=== PATIENT | male | born 1950 | race Caucasian/White ===

== ENCOUNTER → 2017-11-18 | Outpatient (CLI) | payer OTHER ==
[2017-11-18 17:09] LABS: BLOOD UREA NITROGEN 38 mg/dl (7-18); CALCIUM 8.6 mg/dl (8.5-10.1); CARBON DIOXIDE 26 mmol/L (21-32); CREATININE 1.88 mg/dl (0.60-1.40); GLUCOSE 121 mg/dl (70-99); POTASSIUM 5.3 mmol/L (3.5-5.1); SODIUM 134 mmol/L (136-145)
== END | disposition home or self-care (01) ==
LOC: C.LABPBG 13:52
PROVIDERS: ATTEND Physician Assistant
DX: Z01.818 Encounter for other preprocedural examination (principal)

== ENCOUNTER 2022-10-06 12:58 | Inpatient (IN) ==
--- NOTE | 2022-10-06 13:03 | Emergency Department Note ---
Impression & Plan Atrial fibrillation, Chronic kidney disease, stage III (moderate), Fall, Cellulitis, Mobitz type 1 second degree AV block ED Provider Note NAME: NITHIN ORTA AGE: 72 SEX: M : 1950 ARRIVES VIA: Ambulance INFORMANT: Patient, ED PROVIDER(S): Jamal Dumont MD Chief Complaint: Fall, leg pain, possible rectal bleeding HPI: Patient presents from home as he was transitioning from his lift chair to wheelchair and had a fall. The patient denies any head strike or LOC. The patient reportedly was recently admitted at [facility] and states that he does not was not feeling well and was having difficulty getting around his home. Patient denies any chest pain shortness of breath or abdominal pain. EMS noted that he might of had some scant rectal bleeding but the patient thought that this may be related to the fall that he sustained. The patient does take Eliquis and aspirin and has known history of A. fib and heart failure. Patient does complain of chronic left hip and knee pain. Patient was noted to have excoriated lower extremities. Patient states that the fall was just from the chair to the floor. Patient states he did not fall backwards. Did review transitional care management the patient is to have in-home care through [facility] community nurses. Patient is supposed to have care from 10-2pm. patient reportedly was not able to verify medication changes when being spoken to. Patient was seen in the outpatient setting by Dr. Cruz and I did review the patient's note from September 27 patient reportedly does have erysipelas of the bilateral lower extremities as well as cellulitis. The patient does have Augmentin therapy. The patient does have acute on chronic CHF this was to be on Lasix. Patient reportedly had presented to the emergency department on September 13 and subsequently on September 15 and was admitted from the through the . Patient did have new onset A. fib and was started on Eliquis at that time. His aspirin was reportedly stopped. Patient reportedly was transitioned from Rocephin to Augmentin at the time of his discharge. Per the note the patient is not to take the antibiotic as directed he has not been taking his daily Lasix. MDM: Patient was seen due to concern for fall and likely inability to care at home. The patient is festive in shelter but after reading the patient's notes he has limited care and may suffer from noncompliance and this may be due to his inability to care for himself. Patient had recently been started on blood thinning medications as well as beta-shi for new onset A. fib. The patient did have blood work completed along with CT of the head given the fall on blood thinner as well as plain films of the chest left hip and knee. Rectal exam was not overtly concerning. The patient does appear to have a small amount of blood with normal colored stool. Patient CT of the head shows remote infarcts which were old. I did speak with Dr. Morelos who stated that they did appear to be old. The patient has a borderline elevation white count of 10.9. He was empirically treated with cefepime given his known history of cellulitis erysipelas and potential noncompliance with at home medications as the patient was opposed to be on at home Augmentin. Patient has mild anemia with a hemoglobin of 11. Platelet count is normal. Kidney function with a creat of 1.2. Glucose of 210. Patient is not DKA. Hypercalcemia noted. Procalcitonin is not elevated. Flu COVID and RSV negative. Lactate is not elevated. Fluids avoided at this time as the patient may be suffering from volume overloaded and per review of the patient's chart the patient has gained 14 kg since he was seen here in April. Patient was ordered Lasix 40. I did speak the on-call hospitalist Dr. Adair. Patient was admitted to the medicine service. Patient's plain films did not show fracture in the lower extremity. The patient's chest x-ray cardiomegaly without pulmonary edema. Trace pleural effusions noted ROS: See HPI for pertinent positives and negatives. A total of 10 systems were reviewed and otherwise negative. Past medical history: See below Surgical history: See below Social history: See below Physical Exam: GENERAL: NAD, wearing a mask, non-toxic. EYE EXAM: Normal conjunctiva. PERRL, no anisocoria and EOM's grossly intact w/o pain. NECK: Supple, no nuchal rigidity, no adenopathy, non-tender. No signs of meningismus. FROM of the neck with good chin to chest and neck extension. No stridor. LUNGS: Clear to auscultation. Normal chest wall mechanics. HEART: NSR, no MRG. ABDOMEN: Abdomen soft, non-tender, normo-active bowel sounds, no masses, no rebound or guarding. BACK: No CVA TTP. SKIN: No rashes and no bruising. UPPER EXTREMITIES: Upper extremities are grossly normal. Rectal: No internal masses, normal appearing stool, scant blood noted LOWER EXTREMITIES: Significant bilateral lower extremity edema with excoriation noted as well as wounds to the inner portion of the bilateral calves, mild surrounding erythema but without calor, no crepitus, neurovascular intact distally. Mild pain to the left hip and left knee without obvious deformity or leg length discrepancy. NEURO EXAM: A&O x3, cranial nerves II-XII grossly intact, normal speech, moves all 4 extremities. Differential diagnoses: Fracture, dislocation, contusion, intra-abdominal, pneumothorax, intrathoracic, intracranial, neurologic, compartment syndrome, rhabdomyolysis, as well as other pathologies. Course: Patient was seen and evaluated the bedside. Full history physical exam was performed. EKG interpreted by Sinus with Mobitz 1 AV conduction, rate of 61, normal axis borderline QRS, no obvious ST elevations. Imaging Studies: See Below Cardiac monitoring: An order was placed for continuous cardiac monitoring. The monitor shows a rate of 67 with regular rhythm. Past Med/Surg History Medical History Arthritis Atrial fibrillation (09/2022) BPH (benign prostatic hyperplasia) Chronic diastolic heart failure Chronic kidney disease, stage III (moderate) Chronic venous stasis dermatitis of both lower extremities Depression Diabetes mellitus type 2 with complications Gout H/O osteomyelitis Hearing deficit History of amputation of toe Onset: 23 December 2017 R great toe, R 2nd toe Hyperlipidemia Hypertension Mobitz type 1 second degree AV block Osteoarthritis Peripheral arterial disease Type 2 diabetes mellitus with diabetic neuropathy Urinary incontinence Venous insufficiency (chronic) (peripheral) Wheelchair bound Surgical History History of cataract surgery Right eye, 2016; L eye 2018 History of foot surgery tumor removal; left S/P arterial stent R leg, December 2017 S/P hip replacement 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) secondary to osteomyelitis Status post amputation of toe of left foot (07/06/21) L 2nd toe Status post amputation of toe of left foot (09/10/21) L 3rd adn 4th toes (d/t osteomyelitis) Status post amputation of toe of right foot R great toe, December 23, 2017 Total knee replacement status Right Family History Brother Cardiac disorder Aunt Colorectal cancer Sister Hypertension Breast cancer Denies family history of Ovarian cancer Prostate cancer Myocardial infarction Social History Smoking Status: Never smoker Second Hand Exposure: Yes; Hx Alcohol Use: No Hx Substance Use: No Preferred Language: German Communication Ability: Effective Visual Impairment: Limited Hearing Ability: Hard of Hearing Grief Counselor Required: No Beliefs That Will Affect Care: None marital status: Current Living Situation: Alone Current Living Situation Comment: 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, starts at 9am current occupational status: retired Other Information That Helps Us Care for You: No Feels Safe at Home: Yes Childhood Exposure to Second-Hand Smoke: Yes caffeine: No during the past year weight has: decreased > 10 lbs Dental Care, Regularly: No Physical Activity Frequency: Does not Exercise Physical Activity Frequency Comment: limited by physical condition Seatbelt Use: always Sunscreen Use: No Assistive Devices: Lift Chair and Wheelchair Allergies Allergies Allergy/AdvReac Type Severity Reaction Status Date / Time lisinopril AdvReac Intermediate Cough Verified 10/06/22 15:38 Home Meds Home Medications Medication Instructions Recorded Confirmed doxepin 75 mg capsule 225 mg PO HS PRN Sleep 10/06/22 10/06/22 dulaglutide 3 mg/0.5 mL 0 mg subcut WK 10/06/22 10/06/22 subcutaneous pen injector ipratropium 20 mcg-albuterol 100 1 puff inhalation TID PRN 10/06/22 10/06/22 mcg/actuation mist for inhalation BREATHING ISSUES (Combivent Respimat) Previous Rx's Medication Instructions Recorded diaper,brief,adult,disposable #120 ea 04/13/19 (Briefs, Adult-Extra Large) pen needle, diabetic 32 gauge x #100 ea 04/25/19 5/32" (1st Tier Unifine Pentips) Diabetic Shoes #1 ea 04/27/21 Extra Heavy Duty Wheelchair #1 ea 06/29/21 lancets 33 gauge (BD Ultra Fine #100 ea 11/10/21 Lancets) finasteride 5 mg tablet 5 mg PO DAILY #90 tabs 02/26/22 pen needle, diabetic 32 gauge x #100 ea 03/04/22" (BD Sofy 2nd Gen Pen Needle) furosemide 20 mg tablet (Lasix) 40 mg PO DAILY #60 tabs 07/01/22 allopurinol 300 mg tablet 300 mg PO DAILY #90 tabs 07/07/22 losartan 100 mg tablet 100 mg PO DAILY #90 tabs 07/07/22 metoprolol succinate 50 mg 50 mg PO DAILY #90 tabs 07/16/22 tablet,extended release 24 hr tamsulosin 0.4 mg capsule 0.4 mg PO DAILY #180 caps 07/16/22 atorvastatin 10 mg tablet 10 mg PO DAILY #90 tabs 08/04/22 insulin glargine U-300 conc 300 25 unit (0.0833 mL) subcut DAILY 08/12/22 unit/mL (1.5 mL) subcutaneous pen #13.5 mL (Toujeo SoloStar U-300 Insulin) Hinged knee brace #1 ea 08/15/22 diaper,brief,adult,disposable #32 ea 08/15/22 motor scooter #1 ea 08/15/22 apixaban 5 mg tablet 5 mg PO BID #60 tabs 09/20/22 aspirin 81 mg tablet,delayed 81 mg PO DAILY #30 tabs 09/20/22 release Diabetic Shoes #1 ea 09/27/22 Results & Data (ED) Vital Signs Vital Signs - 24 hr 10/06/22 13:53 10/06/22 13:59 10/06/22 13:08 Temperature 36.1 C L Temperature Source Temporal Artery Scan Pulse Rate 67 64 Pulse Rate [Apical] 65 Respiratory Rate 20 20 14 Respiratory Effort / Characteristics Non-Labored Spontaneous Non-Labored Respiratory Depth Normal Normal Respiratory Pattern Regular Regular Blood Pressure 159/77 H Blood Pressure [Right Arm] Blood Pressure Mean 104 Blood Pressure Mean [Right Arm] Blood Pressure Position Lying Pulse Oximetry 94 93 94 Oxygen Delivery Method Room Air Room Air Room Air Sepsis Recent Fever Within 48 Hours No Sepsis New/Unexplained Change in Mental Status N/A Sepsis Action Taken by Nursing No Action Required 10/06/22 14:15 10/06/22 14:30 10/06/22 14:45 Temperature Temperature Source Pulse Rate Pulse Rate [Apical] 62 72 65 Respiratory Rate 16 18 20 Respiratory Effort / Characteristics Respiratory Depth Respiratory Pattern Blood Pressure Blood Pressure [Right Arm] 183/78 H 157/100 H 183/89 H Blood Pressure Mean Blood Pressure Mean [Right Arm] 113 119 120 Blood Pressure Position Pulse Oximetry 95 91 92 Oxygen Delivery Method Room Air Room Air Room Air Sepsis Recent Fever Within 48 Hours Sepsis New/Unexplained Change in Mental Status Sepsis Action Taken by Nursing 10/06/22 15:33 Temperature Temperature Source Pulse Rate Pulse Rate [Apical] 74 Respiratory Rate Respiratory Effort / Characteristics Respiratory Depth Respiratory Pattern Blood Pressure Blood Pressure [Right Arm] 172/92 H Blood Pressure Mean Blood Pressure Mean [Right Arm] 118 Blood Pressure Position Pulse Oximetry 94 Oxygen Delivery Method Room Air Sepsis Recent Fever Within 48 Hours Sepsis New/Unexplained Change in Mental Status Sepsis Action Taken by Long Term Medications Current Medication List: was personally reviewed by me Laboratory Data Result diagrams: 10/07/22 06:20 10/07/22 06:20 Lab Results 10/06/22 10/06/22 10/06/22 Range/Units 13:43 13:43 13:43 WBC 10.97 H (4.8-10.8) K/ul RBC 3.95 L (4.63-6.08) M/uL Hgb 11.1 L (14.0-18.0) g/dl Hct 35.6 L (40.1-51.0) % MCV 90.1 (80.0-100.0) fL MCH 28.1 (25.0-34.0) pg MCHC 31.2 L (32.0-36.0) g/dL RDW Std Deviation 50.4 H (36.4-46.3) fL RDW Coeff of Ana María 15.5 H (11.5-14.5) % Plt Count 255 (130-400) K/uL MPV 10.3 (9.4-12.4) fL Immature Gran % (Auto) 0.5 % Neut % (Auto) 77.8 % Lymph % (Auto) 13.1 % Gregg % (Auto) 6.5 % Eos % (Auto) 1.6 % Baso % (Auto) 0.5 % Neut # (Auto) 8.53 H (1.4-6.5) K/uL Lymph # (Auto) 1.44 (1.2-3.4) K/uL Gregg # (Auto) 0.71 (0.24-0.82) K/uL Eos # (Auto) 0.18 (0-0.50) K/uL Baso # (Auto) 0.06 (0-0.2) K/uL Immature Gran # (Auto) 0.05 H (0.00-0.02) K/uL PT (9.0-12.0) Seconds INR (0.9-1.1) APTT (21.0-31.0) Seconds PTT Ratio Sodium 135 L (136-145) mmol/L Potassium 3.9 (3.5-5.1) mmol/L Chloride 102 (98-107) mmol/L Carbon Dioxide 27 (21-32) mmol/L Anion Gap 6 (3-11) BUN 27 H (6-23) mg/dl Creatinine 1.26 (0.6-1.4) mg/dl Est Cr Clr Drug Dosing Not Reportable Est GFR ( Amer) 64.7 ml/min Est GFR (Non-Af Amer) 55.8 ml/min BUN/Creatinine Ratio 21.4 H (10-20) Glucose 210 H (70-99(Fasting)) mg/dl Lactate (0.4-2.0) mmol/L Calcium 7.8 L (8.5-10.1) mg/dl Magnesium 1.7 (1.7-2.4) mg/dl Total Bilirubin 0.5 (0.2-1.0) mg/dl Direct Bilirubin 0.1 (0-0.2) mg/dl AST 14 (13-39) U/L ALT 11 (7-52) U/L Alkaline Phosphatase 162 H (34-104) U/L Troponin I High Sens 26.0 H (0-20) pg/ml Total Protein 6.7 (6.0-8.3) gm/dl Albumin 2.8 L (3.4-5.0) gm/dl Procalcitonin 0.08 (0-0.5) ng/ml SARS-CoV-2 (PCR) (Negative) Influenza Type A (PCR) (Neg) Influenza Type B (PCR) (Neg) RSV (RT-PCR) (Neg) Staphylococcus sp PCR (NotDetected) Bld Cult ID Panel PCR (NotDetected) 10/06/22 10/06/22 10/06/22 Range/Units 13:43 13:43 13:43 WBC (4.8-10.8) K/ul RBC (4.63-6.08) M/uL Hgb (14.0-18.0) g/dl Hct (40.1-51.0) % MCV (80.0-100.0) fL MCH (25.0-34.0) pg MCHC (32.0-36.0) g/dL RDW Std Deviation (36.4-46.3) fL RDW Coeff of Ana María (11.5-14.5) % Plt Count (130-400) K/uL MPV (9.4-12.4) fL Immature Gran % (Auto) % Neut % (Auto) % Lymph % (Auto) % Gregg % (Auto) % Eos % (Auto) % Baso % (Auto) % Neut # (Auto) (1.4-6.5) K/uL Lymph # (Auto) (1.2-3.4) K/uL Gregg # (Auto) (0.24-0.82) K/uL Eos # (Auto) (0-0.50) K/uL Baso # (Auto) (0-0.2) K/uL Immature Gran # (Auto) (0.00-0.02) K/uL PT 11.2 (9.0-12.0) Seconds INR 1.1 (0.9-1.1) APTT 33.2 H (21.0-31.0) Seconds PTT Ratio 1.2 Sodium (136-145) mmol/L Potassium (3.5-5.1) mmol/L Chloride (98-107) mmol/L Carbon Dioxide (21-32) mmol/L Anion Gap (3-11) BUN (6-23) mg/dl Creatinine (0.6-1.4) mg/dl Est Cr Clr Drug Dosing Est GFR ( Amer) ml/min Est GFR (Non-Af Amer) ml/min BUN/Creatinine Ratio (10-20) Glucose (70-99(Fasting)) mg/dl Lactate (0.4-2.0) mmol/L Calcium (8.5-10.1) mg/dl Magnesium (1.7-2.4) mg/dl Total Bilirubin (0.2-1.0) mg/dl Direct Bilirubin (0-0.2) mg/dl AST (13-39) U/L ALT (7-52) U/L Alkaline Phosphatase (34-104) U/L Troponin I High Sens (0-20) pg/ml Total Protein (6.0-8.3) gm/dl Albumin (3.4-5.0) gm/dl Procalcitonin (0-0.5) ng/ml SARS-CoV-2 (PCR) NEGATIVE (Negative) Influenza Type A (PCR) Negative (Neg) Influenza Type B (PCR) Negative (Neg) RSV (RT-PCR) Negative (Neg) Staphylococcus sp PCR DETECTED A (NotDetected) Bld Cult ID Panel PCR See PCR Comment (NotDetected) 10/06/22 Range/Units 13:45 WBC (4.8-10.8) K/ul RBC (4.63-6.08) M/uL Hgb (14.0-18.0) g/dl Hct (40.1-51.0) % MCV (80.0-100.0) fL MCH (25.0-34.0) pg MCHC (32.0-36.0) g/dL RDW Std Deviation (36.4-46.3) fL RDW Coeff of Ana María (11.5-14.5) % Plt Count (130-400) K/uL MPV (9.4-12.4) fL Immature Gran % (Auto) % Neut % (Auto) % Lymph % (Auto) % Gregg % (Auto) % Eos % (Auto) % Baso % (Auto) % Neut # (Auto) (1.4-6.5) K/uL Lymph # (Auto) (1.2-3.4) K/uL Gregg # (Auto) (0.24-0.82) K/uL Eos # (Auto) (0-0.50) K/uL Baso # (Auto) (0-0.2) K/uL Immature Gran # (Auto) (0.00-0.02) K/uL PT (9.0-12.0) Seconds INR (0.9-1.1) APTT (21.0-31.0) Seconds PTT Ratio Sodium (136-145) mmol/L Potassium (3.5-5.1) mmol/L Chloride (98-107) mmol/L Carbon Dioxide (21-32) mmol/L Anion Gap (3-11) BUN (6-23) mg/dl Creatinine (0.6-1.4) mg/dl Est Cr Clr Drug Dosing Est GFR ( Amer) ml/min Est GFR (Non-Af Amer) ml/min BUN/Creatinine Ratio (10-20) Glucose (70-99(Fasting)) mg/dl Lactate 1.2 (0.4-2.0) mmol/L Calcium (8.5-10.1) mg/dl Magnesium (1.7-2.4) mg/dl Total Bilirubin (0.2-1.0) mg/dl Direct Bilirubin (0-0.2) mg/dl AST (13-39) U/L ALT (7-52) U/L Alkaline Phosphatase (34-104) U/L Troponin I High Sens (0-20) pg/ml Total Protein (6.0-8.3) gm/dl Albumin (3.4-5.0) gm/dl Procalcitonin (0-0.5) ng/ml SARS-CoV-2 (PCR) (Negative) Influenza Type A (PCR) (Neg) Influenza Type B (PCR) (Neg) RSV (RT-PCR) (Neg) Staphylococcus sp PCR (NotDetected) Bld Cult ID Panel PCR (NotDetected) Administered Medications Acetaminophen (Acetaminophen 325 Mg Tab) 650 mg PO Q4H PRN PRN Reason: Pain or Fever Stop: 11/05/22 21:49 Last Admin: 10/07/22 11:07 Dose: 650 mg Documented By: MEENA Allopurinol (Allopurinol 300 Mg Tab) 300 mg PO DAILY [facility] Stop: 11/06/22 08:59 Last Admin: 10/07/22 08:05 Dose: 300 mg Documented By: MEENA Apixaban (Apixaban 5 Mg Tablet) 5 mg PO BID [facility] Stop: 11/05/22 21:49 Last Admin: 10/07/22 08:05 Dose: 5 mg Documented By: Admin: 10/06/22 22:22 Dose: 5 mg Documented By: AIDE Aspirin (Aspirin 81 Mg Ectab) 81 mg PO DAILY [facility] Stop: 11/06/22 08:59 Last Admin: 10/07/22 08:04 Dose: 81 mg Documented By: MEENA Atorvastatin Calcium (Atorvastatin 10 Mg Tab) 10 mg PO DAILY [facility] Stop: 11/06/22 08:59 Last Admin: 10/07/22 08:06 Dose: 10 mg Documented By: MEENA Finasteride (Finasteride 5 Mg Tab) 5 mg PO DAILY [facility] Stop: 11/06/22 08:59 Last Admin: 10/07/22 08:05 Dose: 5 mg Documented By: MEENA Furosemide (Furosemide 40 Mg Tab) 40 mg PO DAILY [facility] Stop: 11/06/22 08:59 Last Admin: 10/07/22 08:05 Dose: 40 mg Documented By: MEENA Gabapentin (Gabapentin 300 Mg Cap) 600 mg PO HS [facility] Stop: 11/05/22 22:29 Last Admin: 10/06/22 22:22 Dose: 600 mg Documented By: AIDE Cefepime HCl 2,000 mg/ Syringe 20 mls @ 5 mls/min IV Q8H [facility]; Protocol Stop: 10/14/22 00:00 Last Admin: 10/07/22 08:04 Dose: 5 mls/min Documented By: Admin: 10/07/22 00:28 Dose: 5 mls/min Documented By: LAKEISHA Insulin Aspart (Insulin Aspart Per Unit) 0 units SC ACHS [facility] Stop: 11/05/22 21:49 Last Admin: 10/07/22 10:00 Dose: 3 units Documented By: MEENA Co-signed By: STEPHEN Admin: 10/06/22 22:48 Dose: Not Given Documented By: AIDE Losartan Potassium (Losartan Potassium 50 Mg Tab) 100 mg PO DAILY [facility] Stop: 11/06/22 08:59 Last Admin: 10/07/22 08:05 Dose: 100 mg Documented By: MEENA Tamsulosin HCl (Tamsulosin Hcl 0.4 Mg Cap) 0.4 mg PO DAILY [facility] Stop: 11/06/22 08:59 Last Admin: 10/07/22 08:05 Dose: 0.4 mg Documented By: MEENA Discontinued Medications Cefepime HCl (Cefepime 2,000 Mg/20 Ml Vial) Confirm Administered Dose 2,000 mg .ROUTE .STK-MED ONE Stop: 10/06/22 15:19 Last Admin: 10/06/22 15:21 Dose: Not Given Documented By: AIDE Furosemide (Furosemide 40 Mg/4 Ml Vial) 40 mg IV ONE ONE Stop: 10/06/22 15:35 Last Admin: 10/06/22 16:10 Dose: 40 mg Documented By: AIDE Cefepime HCl (Maxipime) 2,000 mg in 20 mls @ 5 mls/min IV NOW STA; Protocol Stop: 10/06/22 13:11 Last Admin: 10/06/22 15:32 Dose: 5 mls/min Documented By: AIDE Vancomycin HCl 2,750 mg/ (Sodium Chloride) 555 mls @ 180 mls/hr IV ONE ONE Stop: 10/07/22 01:19 Last Infusion: 10/07/22 03:31 Dose: 0 mls/hr Documented By: armored service technician: 10/06/22 22:23 Dose: 180 mls/hr Documented By: AIDE Insulin Glargine (Lantus Per Unit Charge) 20 units SQ ONE ONE Stop: 10/07/22 09:01 Last Admin: 10/07/22 10:06 Dose: 20 units Documented By: MEENA Co-signed By: CAMILO Metoprolol Succinate (Metoprolol Succ 50mg Ext Rel Tab) 50 mg PO DAILY [facility] Stop: 11/06/22 08:59 Last Admin: 10/07/22 08:05 Dose: 50 mg Documented By: MEENA Imaging Data Radiologist's Impression: Chest X-Ray 10/06/22 13:08 XR chest 1V portable HISTORY: 72 years-old Male Sepsis acute sepsis COMPARISON: None TECHNIQUE: AP view of the chest FINDINGS: Cardiac silhouette is enlarged. Suggestion of trace pleural effusions with left basilar densities. No pneumothorax or overt pulmonary edema. Degenerative changes of the shoulders and spine. IMPRESSION: 1. Cardiomegaly without overt pulmonary edema. 2. Trace pleural effusions with left basilar opacities. ACT 112: Negative or not required by law. The above report was generated using voice recognition software. It may contain grammatical, syntax or spelling errors. Electronically signed by: Jose Chavira M.D. 10/06/2022 1:[address] 10/06/22 13:24 CT SCAN OF THE BRAIN WITHOUT IV CONTRAST CLINICAL HISTORY: Fall. COMPARISON STUDY: No priors. TECHNIQUE: Unenhanced axial CT scan of the brain is performed from the vertex to the skull base. A dose lowering technique was utilized adhering to the principles of ALARA. CT DOSE: 2471.82 mGycm FINDINGS: Brain parenchyma: Foci of left occipital and left cerebellar encephalomalacia are consistent with remote insults. A chronic lacunar infarct is seen in the right thalamus. There is age-related involutional change noting moderate subcortical and periventricular microangiopathic disease. There is no hemorrhage, mass effect, or evidence of acute territorial ischemia by CT criteria. Seaman-white matter differentiation is preserved. No extra-axial fluid collection is seen. Ventricles, sulci, cisterns: Prominent secondary to involutional change. Intracranial vasculature: There is atherosclerotic calcification of the cavernous carotid and vertebral artery. Calvarium: The skeletal structures are osteopenic. No depressed calvarial fracture is identified. Sinuses and mastoids: The visualized paranasal sinuses are clear. The mastoid air cells are well pneumatized. Orbits: The bony orbits are grossly intact. There are bilateral ocular lens implants IMPRESSION: Remote infarcts as above with no hemorrhage, mass effect, or evidence of acute territorial ischemia by CT criteria. ACT 112: Negative or not required by law. Electronically signed by: Junior Morelos M.D. 10/06/2022 2:17 PM Hip/Pelvis X-Ray 10/06/22 13:24 SINGLE VIEW PELVIS; 2 VIEWS LEFT HIP CLINICAL HISTORY: Fall. FINDINGS: An AP view of the pelvis with AP and frog-leg views of the left hip are obtained. No prior studies are available for comparison at the time of dictation. The skeletal structures are osteopenic. There is no radiographic evidence of acute fracture involving the hips or bony pelvis. A right hip arthroplasty is in near anatomic alignment. Moderate arthritic change and joint space narrowing is seen in the left hip. Degenerative sclerosis is noted in the sacroiliac joints and pubic symphysis. Lumbosacral spondylosis is partially visualized. Enthesophytes arise from the anterior superior iliac spines. The overlying soft tissues are within normal limits. Advanced atherosclerotic calcification is seen in the femoral arteries. Phleboliths are noted in the pelvis. IMPRESSION: No acute bony abnormality is identified. Electronically signed by: Junior Morelos M.D. 10/06/2022 3:15 PM Knee X-Ray 10/06/22 13:24 XR knee LT 1 or 2V routine HISTORY: 72 years-old Male pain . Acute left knee pain status post fall COMPARISON: None TECHNIQUE: 2 views of the left knee FINDINGS: Arterial and soft tissue calcifications. Trace joint effusion. Moderate medial and lateral with severe patellofemoral compartment osteoarthritis. Circumferential soft tissue prominence. No acute fracture or dislocation. IMPRESSION: Soft tissue prominence without acute fracture or dislocation identified. ACT 112: Negative or not required by law. The above report was generated using voice recognition software. It may contain grammatical, syntax or spelling errors. Electronically signed by: Jose Chavira M.D. 10/06/2022 3:25 PM Discharge Plan Visit Data Chief Complaint: Fall Stated Complaint: FALL, RECTAL BLEED ED Provider: Jamal Dumont Discharge Problem: Atrial fibrillation, Chronic kidney disease, stage III (moderate), Fall, Cellulitis, Mobitz type 1 second degree AV block
[2022-10-06] MEDS ORDERED: CEFEPIME 2,000 MG/20 ML VIAL IV STA (13:08)
--- NOTE | 2022-10-06 13:34 | XRay Report ---
XR chest 1V portable HISTORY: 72 years-old Male Sepsis acute sepsis COMPARISON: None TECHNIQUE: AP view of the chest FINDINGS: Cardiac silhouette is enlarged. Suggestion of trace pleural effusions with left basilar densities. No pneumothorax or overt pulmonary edema. Degenerative changes of the shoulders and spine. IMPRESSION: 1. Cardiomegaly without overt pulmonary edema. 2. Trace pleural effusions with left basilar opacities. ACT 112: Negative or not required by law. The above report was generated using voice recognition software. It may contain grammatical, syntax o r spelling errors. Electronically signed by: Jose Chavira M.D. 10/06/2022 1:32 PM
[2022-10-06 13:59] LABS: Basophils # (auto) 0.06 K/uL (0-0.2); Basophils % (auto) 0.5 %; Eosinophils # (auto) 0.18 K/uL (0-0.50); Eosinophils % (auto) 1.6 %; Hematocrit (blood only) 35.6 % (40.1-51.0); Hemoglobin 11.1 g/dl (14.0-18.0); Immature Granulocytes # (auto) 0.05 K/uL (0.00-0.02); Immature Granulocytes % (auto) 0.5 %; Lymphocytes # (auto) 1.44 K/uL (1.2-3.4); Lymphocytes % (auto) 13.1 %; Mean Corpuscular Hemoglobin 28.1 pg (25.0-34.0); Mean Corpuscular Hgb Conc 31.2 g/dL (32.0-36.0); Mean Corpuscular Volume 90.1 fL (80.0-100.0); Mean Platelet Volume 10.3 fL (9.4-12.4); Monocytes # (auto) 0.71 K/uL (0.24-0.82); Monocytes % (auto) 6.5 %; Neutrophils # (auto) 8.53 K/uL (1.4-6.5); Neutrophils % (auto) 77.8 %; Platelet Count 255 K/uL (130-400); RDW Coefficient of Variation 15.5 % (11.5-14.5); RDW Standard Deviation 50.4 fL (36.4-46.3); Red Blood Count 3.95 M/uL (4.63-6.08); White Blood Count 10.97 K/ul (4.8-10.8)
[2022-10-06 14:10] LABS: INR 1.1 (0.9-1.1); Partial Thromboplastin Ratio 1.2; Partial Thromboplastin Time 33.2 Seconds (21.0-31.0); Prothrombin Time 11.2 Seconds (9.0-12.0)
--- NOTE | 2022-10-06 14:19 | CT Scan Report ---
CT SCAN OF THE BRAIN WITHOUT IV CONTRAST CLINICAL HISTORY: Fall. COMPARISON STUDY: No priors. TECHNIQUE: Unenhanced axial CT scan of the brain is performed from the vertex to the skull base. A do se lowering technique was utilized adhering to the principles of ALARA. CT DOSE: 2471.82 mGycm FINDINGS: Brain parenchyma: Foci of left occipital and left cerebellar encephalomalacia are consistent with rem ote insults. A chronic lacunar infarct is seen in the right thalamus. There is age-related involution al change noting moderate subcortical and periventricular microangiopathic disease. There is no hemor rhage, mass effect, or evidence of acute territorial ischemia by CT criteria. Seaman-white matter diffe rentiation is preserved. No extra-axial fluid collection is seen. Ventricles, sulci, cisterns: Prominent secondary to involutional change. Intracranial vasculature: There is atherosclerotic calcification of the cavernous carotid and vertebr al artery. Calvarium: The skeletal structures are osteopenic. No depressed calvarial fracture is identified. Sinuses and mastoids: The visualized paranasal sinuses are clear. The mastoid air cells are well pneu matized. Orbits: The bony orbits are grossly intact. There are bilateral ocular lens implants IMPRESSION: Remote infarcts as above with no hemorrhage, mass effect, or evidence of acute territoria l ischemia by CT criteria. ACT 112: Negative or not required by law. Electronically signed by: Junior Morelos M.D. 10/06/2022 2:17 PM
[2022-10-06 14:37] LABS: Alanine Aminotransferase 11 U/L (7-52); Albumin Level 2.8 gm/dl (3.4-5.0); Alkaline Phosphatase 162 U/L (34-104); Anion Gap 6 (3-11); Aspartate Aminotransferase 14 U/L (13-39); BUN Creatinine Ratio 21.4 (10-20); Bilirubin Direct 0.1 mg/dl (0-0.2); Bilirubin,Total 0.5 mg/dl (0.2-1.0); Blood Urea Nitrogen 27 mg/dl (6-23); Calcium 7.8 mg/dl (8.5-10.1); Carbon Dioxide 27 mmol/L (21-32); Chloride 102 mmol/L (98-107); Est GFR (African American) 64.7 ml/min; Est GFR (Non-African American) 55.8 ml/min; Glucose 210 mg/dl (70-99(Fasting)); Magnesium 1.7 mg/dl (1.7-2.4); Potassium 3.9 mmol/L (3.5-5.1); Sodium 135 mmol/L (136-145); Total Protein 6.7 gm/dl (6.0-8.3)
[2022-10-06 14:50] LABS: Influenza A virus by PCR Negative (Neg); Influenza B virus by PCR Negative (Neg); RSV by PCR Negative (Neg); SARS CoV2 RNA(COVID-19) Ceph NEGATIVE (Negative)
--- NOTE | 2022-10-06 15:17 | XRay Report ---
SINGLE VIEW PELVIS; 2 VIEWS LEFT HIP CLINICAL HISTORY: Fall. FINDINGS: An AP view of the pelvis with AP and frog-leg views of the left hip are obtained. No prior studies are available for comparison at the time of dictation. The skeletal structures are osteopenic . There is no radiographic evidence of acute fracture involving the hips or bony pelvis. A right hip arthroplasty is in near anatomic alignment. Moderate arthritic change and joint space narrowing is se en in the left hip. Degenerative sclerosis is noted in the sacroiliac joints and pubic symphysis. Lum bosacral spondylosis is partially visualized. Enthesophytes arise from the anterior superior iliac sp kecia. The overlying soft tissues are within normal limits. Advanced atherosclerotic calcification is seen in the femoral arteries. Phleboliths are noted in the pelvis. IMPRESSION: No acute bony abnormality is identified. Electronically signed by: Junior Morelos M.D. 10/06/2022 3:15 PM
[2022-10-06] MEDS ORDERED: CEFEPIME 2,000 MG/20 ML VIAL ONE (15:18)
--- NOTE | 2022-10-06 15:27 | XRay Report ---
XR knee LT 1 or 2V routine HISTORY: 72 years-old Male pain . Acute left knee pain status post fall COMPARISON: None TECHNIQUE: 2 views of the left knee FINDINGS: Arterial and soft tissue calcifications. Trace joint effusion. Moderate medial and lateral with sever e patellofemoral compartment osteoarthritis. Circumferential soft tissue prominence. No acute fractur e or dislocation. IMPRESSION: Soft tissue prominence without acute fracture or dislocation identified. ACT 112: Negative or not required by law. The above report was generated using voice recognition software. It may contain grammatical, syntax o r spelling errors. Electronically signed by: Jose Chavira M.D. 10/06/2022 3:25 PM
[2022-10-06] MEDS ORDERED: FUROSEMIDE 40 MG/4 ML VIAL IV ONE (15:34)
--- NOTE | 2022-10-06 15:36 | History & Physical Report ---
Date of Service October 06, 2022 Assessment & Plan (1) Fall: Plan: Patient presents with a fall at home which could be multifactorial. Patient feels this was a ground-level fall and a misstep getting out of his lift chair patient has conduction system abnormality seen on EKG. Recently began medications for A. fib. Concurrently being treated for lower extremity cellulitis with oral antibiotics after discharge from [facility] on 09/17/22. His legs are in very poor condition he obviously is having challenges caring for them at home. It is difficult to tell what is acute and what is chronic with regard to chronic venous stasis changes. Etiologies could be from his arrhythmia could be from encephalopathy weekly metabolic from his cellulitis present on admission Patient also has mild elevation of his troponin which could be attributed to his renal disease however this could be part of the complex we will trend this (2) Cellulitis: Plan: Patient has significant lower extremity skin changes of various age previous history of amputations from osteomyelitis associated diabetic leg infections and ulcerations. Patient will be on cefepime and vancomycin at this time but with a wound care consultation no specific ulcer looks close enough to a bony structure for osteomyelitis with exception of left foot plantar aspect on the lateral edge this could be near the fifth metatarsal head and will have a MRI of his foot to determine if there is any osteomyelitis as it would changes care in the future Blood cultures are obtained but no one wound is specifically infected or khoi ining enough to target, if surgical debridement is required is Eliquis will need to be held (3) Atrial fibrillation: Plan: Patient with a history of atrial fibrillation now appears to have AV disassociation. Blood pressure and heart rate have been stable. We will continue metoprolol and apixaban for now garnering cardiology consult for his abnormal cardiac rhythm (4) Chronic diastolic heart failure: Plan: He does not appear to be in acute exacerbation of his diastolic heart failure. Continuing beta-shi therapy and Lasix 40 mg a day Patient remains on aspirin and atorvastatin for secondary cardiovascular risk reduction (5) Diabetes mellitus type 2 with complications: Plan: Patient typically on dulaglutide, glargine 25 units a day losartan for renal protective effects and gabapentin for peripheral neuropathy (6) Chronic kidney disease, stage III (moderate): Plan: Chronic kidney disease stage III secondary to diabetic nephropathy is stable on losartan (7) Obesity: Plan: Patient is morbidly obese with a BMI of 44 this likely impacts his car diovascular status Plan Patient remains on allopurinol for history of gout Patient remains on tamsulosin and Proscar for BPH DVT prevention is for apixaban History of Present Illness Primary Care Provider: Barbara Cruz, DO 72 m with morbid obesity will fall at home and has Complete heart block with AV disassociation on ECG, Pt had traumatic injury ruled out by Ct imaging. Pt has history of afib and is on ch Eliquis typically sees Dr Schmitt in [facility]. Recently treated with Augmentin after discharge 09/[address] [facility] with lower extremity edema, that stay was dx'd with afib this pt has risk factors for heart disease with diabetes, obesity, and record of conducting system disease in his record as Mobitz 1 Patient has fairly significant lower extremity ulcerations which are in various stages of healing at this repair by the patient's body habitus he likely cannot care for his lower extremities by himself at home and he does not have any local caregivers. His legs are worse on the left than the right with chronic venous stasis changes he states that he has had previous vascular interventions but cannot recall exactly where or what he has diabetic neuropathy and cannot feel his feet Allergies Allergy/AdvReac Type Severity Reaction Status Date / Time lisinopril AdvReac Intermediate Cough Verified 10/06/22 15:38 Home Medications Medication Instructions Recorded Confirmed Type diaper,brief,adult,disposable #120 ea 04/13/19 09/27/22 Rx (Briefs, Adult-Extra Large) pen needle, diabetic 32 gauge x #100 ea 04/25/19 09/27/22 Rx 5/32" (1st Tier Unifine Pentips) Diabetic Shoes #1 ea 04/27/21 09/27/22 Rx Extra Heavy Duty Wheelchair #1 ea 06/29/21 09/27/22 Rx lancets 33 gauge (BD Ultra Fine #100 ea 11/10/21 09/27/22 Rx Lancets) finasteride 5 mg tablet 5 mg PO DAILY #90 tabs 02/26/22 10/06/22 Rx pen needle, diabetic 32 gauge x #100 ea 03/04/22 09/27/22 Rx 5/32" (BD Sofy 2nd Gen Pen Needle) furosemide 20 mg tablet (Lasix) 40 mg PO DAILY #60 tabs 07/01/22 10/06/22 Rx allopurinol 300 mg tablet 300 mg PO DAILY #90 tabs 07/07/22 10/06/22 Rx losartan 100 mg tablet 100 mg PO DAILY #90 tabs 07/07/22 10/06/22 Rx metoprolol succinate 50 mg 50 mg PO DAILY #90 tabs 07/16/22 10/06/22 Rx tablet,extended release 24 hr tamsulosin 0.4 mg capsule 0.4 mg PO DAILY #180 caps 07/16/22 10/06/22 Rx atorvastatin 10 mg tablet 10 mg PO DAILY #90 tabs 08/04/22 10/06/22 Rx insulin glargine U-300 conc 300 25 unit (0.0833 mL) subcut DAILY 08/12/22 10/06/22 Rx unit/mL (1.5 mL) subcutaneous pen #13.5 mL (Toujeo SoloStar U-300 Insulin) Hinged knee brace #1 ea 08/15/22 09/27/22 Rx diaper,brief,adult,disposable #32 ea 08/15/22 09/27/22 Rx motor scooter #1 ea 08/15/22 09/27/22 Rx apixaban 5 mg tablet 5 mg PO BID #60 tabs 09/20/22 10/06/22 Rx aspirin 81 mg tablet,delayed 81 mg PO DAILY #30 tabs 09/20/22 10/06/22 Rx release Diabetic Shoes #1 ea 09/27/22 09/27/22 Rx doxepin 75 mg capsule 225 mg PO HS PRN Sleep 10/06/22 10/06/22 History dulaglutide 3 mg/0.5 mL 0 mg subcut WK 10/06/22 10/06/22 History subcutaneous pen injector ipratropium 20 mcg-albuterol 100 1 puff inhalation TID PRN 10/06/22 10/06/22 History mcg/actuation mist for inhalation BREATHING ISSUES (Combivent Respimat) Past Med/Surg History Medical History Arthritis Atrial fibrillation (09/2022) BPH (benign prostatic hyperplasia) Chronic diastolic heart failure Chronic kidney disease, stage III (moderate) Chronic venous stasis dermatitis of both lower extremities Depression Diabetes mellitus type 2 with complications Gout H/O osteomyelitis Hearing deficit History of amputation of toe Onset: 23 December 2017 R great toe, R 2nd toe Hyperlipidemia Hypertension Mobitz type 1 second degree AV block Osteoarthritis Peripheral arterial disease Type 2 diabetes mellitus with diabetic neuropathy Urinary incontinence Venous insufficiency (chronic) (peripheral) Wheelchair bound Surgical History History of cataract surgery Right eye, 2017; L eye 2019 History of foot surgery tumor removal; left S/P arterial stent R leg, December 2017 S/P hip replacement 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) secondary to osteomyelitis Status post amputation of toe of left foot (07/06/21) L 2nd toe Status post amputation of toe of left foot (09/10/21) L 3rd adn 4th toes (d/t osteomyelitis) Status post amputation of toe of right foot R great toe, December 23, 2017 Total knee replacement status Right Family History Brother Cardiac disorder Aunt Colorectal cancer Sister Hypertension Breast cancer Denies family history of Ovarian cancer Prostate cancer Myocardial infarction Social History Smoking Status: Never smoker Second Hand Exposure: Yes; Hx Alcohol Use: No Hx Substance Use: No Preferred Language: Filipino Communication Ability: Effective Visual Impairment: Limited Hearing Ability: Hard of Hearing Beliefs That Will Affect Care: None marital status: Current Living Situation: Alone Current Living Situation Comment: 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, starts at 9am current occupational status: retired Feels Safe at Home: Yes Childhood Exposure to Second-Hand Smoke: Yes caffeine: No during the past year weight has: decreased > 10 lbs Dental Care, Regularly: No Physical Activity Frequency: Does not Exercise Physical Activity Frequency Comment: limited by physical condition Seatbelt Use: always Sunscreen Use: No Assistive Devices: Denture - Upper, Denture - Lower, Glasses, Special Shoe and Wheelchair Review of Systems Review of Systems: Moderate distress and fatigue patient is extremely hard of hearing no headache, no visual changes no speech or swallowing issues no chest pain, pressure or palpitations Patient has shortness of breath and dyspnea on exertion no abdominal pain, nausea or vomiting, diarrhea or constipation no dysuria, hematuria or frequency no focal joint pain chronic lower extremity swelling discoloration and wounds of his lower legs no back pain, CVA tenderness or radicular pain Erythema stasis changes and open areas of both lower legs left transmetatarsal amputation right amputation of the first 3 toes Overall weak the patient feels he just fell from his chair diabetic neuropathy is present no complaints of anxiety or depression.. Physical Exam Physical Exam: The patient appeared obese and chronically ill Vital signs as documented. Head exam is normocephalic atraumatic Neck is without JVD, thyromegaly, or carotid bruits. Lungs are diminished at the bases with poor excursion Cardiac exam, Rhythm is regular.. No murmurs, rubs or gallops. Abdominal exam reveals normal bowel sounds, soft non tender, no masses there is no intertrigo below his pannus Extremities are bilateral edema redness open areas previous amputation left transmit right first 3 digits Capillary refill is brisk but pulses are unable to be palpated Neurologic exam is alert and oriented, very hard of hearing is oriented x3 diabetic neuropathy is present Skin is with acute and chronic changes to his lower extremities Psychologically is without concerns for anxiety or depression.. Results & Data Results & Data ([facility]) Vital Signs (Past 12 Hours) Vital Signs Temp Pulse Pulse Resp BP BP Pulse Ox 10/06/22 14:45 65 20 183/89 H 92 10/06/22 14:30 72 18 157/100 H 91 10/06/22 14:15 62 16 183/78 H 95 10/06/22 13:08 97.0 F L 64 14 159/77 H 94 10/06/22 13:59 65 20 93 10/06/22 13:53 67 20 94 O2 Del Method 10/06/22 14:45 Room Air 10/06/22 14:30 Room Air 10/06/22 14:15 Room Air 10/06/22 13:08 Room Air 10/06/22 13:59 Room Air 10/06/22 13:53 Room Air Diagnostic Findings Chest X-Ray 10/06/22 13:08 XR chest 1V portable HISTORY: 72 years-old Male Sepsis acute sepsis COMPARISON: None TECHNIQUE: AP view of the chest FINDINGS: Cardiac silhouette is enlarged. Suggestion of trace pleural effusions with left basilar densities. No pneumothorax or overt pulmonary edema. Degenerative changes of the shoulders and spine. IMPRESSION: 1. Cardiomegaly without overt pulmonary edema. 2. Trace pleural effusions with left basilar opacities. ACT 112: Negative or not required by law. The above report was generated using voice recognition software. It may contain grammatical, syntax or spelling errors. Electronically signed by: Jose Chavira M.D. 10/06/2022 1:[address] 10/06/22 13:24 CT SCAN OF THE BRAIN WITHOUT IV CONTRAST CLINICAL HISTORY: Fall. COMPARISON STUDY: No priors. TECHNIQUE: Unenhanced axial CT scan of the brain is performed from the vertex to the skull base. A dose lowering technique was utilized adhering to the principles of ALARA. CT DOSE: 2471.82 mGycm FINDINGS: Brain parenchyma: Foci of left occipital and left cerebellar encephalomalacia are consistent with remote insults. A chronic lacunar infarct is seen in the right thalamus. There is age-related involutional change noting moderate s ubcortical and periventricular microangiopathic disease. There is no hemorrhage, mass effect, or evidence of acute territorial ischemia by CT criteria. Seaman- white matter differentiation is preserved. No extra-axial fluid collection is seen. Ventricles, sulci, cisterns: Prominent secondary to involutional change. Intracranial vasculature: There is atherosclerotic calcification of the cavernous carotid and vertebral artery. Calvarium: The skeletal structures are osteopenic. No depressed calvarial fracture is identified. Sinuses and mastoids: The visualized paranasal sinuses are clear. The mastoid air cells are well pneumatized. Orbits: The bony orbits are grossly intact. There are bilateral ocular lens implants IMPRESSION: Remote infarcts as above with no hemorrhage, mass effect, or evidence of acute territorial ischemia by CT criteria. ACT 112: Negative or not required by law. Electronically signed by: Junior Morelos M.D. 10/06/2022 2:17 PM Hip/Pelvis X-Ray 10/06/22 13:24 SINGLE VIEW PELVIS; 2 VIEWS LEFT HIP CLINICAL HISTORY: Fall. FINDINGS: An AP view of the pelvis with AP and frog-leg views of the left hip are obtained. No prior studies are available for comparison at the time of dictation. The skeletal structures are osteopenic. There is no radiographic evidence of acute fracture involving the hips or bony pelvis. A right hip arthroplasty is in near anatomic alignment. Moderate arthritic change and joint space narrowing is seen in the left hip. Degenerative sclerosis is noted in the sacroiliac joints and pubic symphysis. Lumbosacral spondylosis is partially visualized. Enthesophytes arise from the anterior superior iliac spines. The overlying soft tissues are within normal limits. Advanced atherosclerotic varghese cification is seen in the femoral arteries. Phleboliths are noted in the pelvis. IMPRESSION: No acute bony abnormality is identified. Electronically signed by: Junior Morelos M.D. 10/06/2022 3:15 PM Knee X-Ray 10/06/22 13:24 XR knee LT 1 or 2V routine HISTORY: 72 years-old Male pain . Acute left knee pain status post fall COMPARISON: None TECHNIQUE: 2 views of the left knee FINDINGS: Arterial and soft tissue calcifications. Trace joint effusion. Moderate medial and lateral with severe patellofemoral compartment osteoarthritis. Circumferential soft tissue prominence. No acute fracture or dislocation. IMPRESSION: Soft tissue prominence without acute fracture or dislocation identified. ACT 112: Negative or not required by law. The above report was generated using voice recognition software. It may contain grammatical, syntax or spelling errors. Electronically signed by: Jose Chavira M.D. 10/06/2022 3:25 PM ECG Additional Comments: AV disassociation with consistent PCP intervals. History of Mobitz heart block but does not appear to be classic Mobitz 1 or 2 PG Care Time/CCT Total # of Minutes Spent Total Time Spent with Patient: Total time spent is greater than 50% in coordination of care (as documented) at patient's floor/unit and/or counseling patient: Coding Level of Care Code 47134 Initial Inpt Care Lvl 3 Diagnoses Fall W19.XXXA Cellulitis L03.90 Atrial fibrillation I48.91 Chronic diastolic heart failure I50.32 Diabetes mellitus type 2 with complications E11.8 Chronic kidney disease, stage III (moderate) N18.3 Obesity E66.9
[2022-10-06 16:31] LABS: Appearance Urine Clear (Clear); Bacteria Urine Automated Negative (Negative); Bilirubin Urine Negative (Negative); Blood Urine Negative (Negative); Color Urine Yellow; Glucose Urine UA Trace (Negative); Ketones Urine Negative (Negative); Leukocyte Esterase Urine Negative (Negative); Nitrite Urine Negative (Negative); Protein Urine 2+ (Negative); RBC Urine Automated 0-4 /hpf (0-4); Specific Gravity Urine 1.019 (1.000-1.030); Urobilinogen Urine Negative (Negative)
--- NOTE | 2022-10-06 18:01 | Cardiology Consultation ---
Date of Consultation October 06, 2022 Assessment & Plan (1) Atrial fibrillation: (2) Chronic diastolic heart failure: (3) Coronary artery disease: (4) History of CVA (cerebrovascular accident): (5) Mobitz type 1 second degree AV block: Plan 1. Atrial fibrillation: This is by report. We do have some EKGs from [facility]. It is difficult to interpret the copies of the EKGs. Possibly atrial fibrillation with controlled ventricular rate. He was started on apixaban. Aspirin was continued presumably for his history of cerebrovascular disease. Unclear if he requires aspirin in addition to apixaban. Reportedly he had elevated cardiac biomarkers at the time his most recent evaluation. In setting of an NSTEMI aspirin could be beneficial. No symptoms. 2. Coronary disease: Presumed. By report he had a abnormal perfusion study performed 2012 suggestive of an anteroapical infarct. He also had a regional wall motion abnormality on his most recent echocardiogram. Multiple risk factors for coronary disease. He can be continued on his anticoagulation. Higher doses of atorvastatin would likely be beneficial. 3. Heart failure with preserved ejection fraction: He underwent a diuresis at [facility]. Lung examination is benign here today. Chest x-ray did not demonstrate pulmonary edema. He was discharged on a daily dose of Lasix which may have helped. He follows a high sodium diet with prepared meals and fast food. Given his history of lower extremity amputations he may be a poor candidate for more aggressive therapy with an SGLT 2 inhibitor 4. Mobitz 1 av block: He has a history of Mobitz 1 av block. It is very difficult to interpret his current EKG due to the poor quality of the tracings and his body habitus. He may have high-degree AV block. Think we can easily discontinue his metoprolol succinate. Perhaps we can get a better understanding of this conduction on telemetry and with another EKG in the morning. No symptoms associated with bradycardia. Today's fall did not appear to involve dizziness, lightheadedness or syncope. Heart rates have been normal here in the hospital. Overall a poor candidate for pacemaker given his chronic lower extremity infections. History of Present Illness Reason for Consultation: Conduction disease Requesting Physician: Mana Attending Physician: Sg Adair MD History of Present Illness The patient is a 72-year-old gentleman with a history of a cerebrovascular accident, hypertension, heart failure with preserved ejection fraction, morbid obesity, diabetes mellitus with associated complications and peripheral vascular disease status post multiple toe amputations. He also suffers from chronic venous stasis ulcers and lower extremity edema. The patient was evaluated at [facility] on 09/13/2022 for symptoms of weakness. He was advised to be admitted to the hospital but decided to go home instead. EKG obtained at that evaluation suggested atrial fibrillation. Patient returned to the same facility 2 days later with persistent symptoms and was admitted to the hospital. He was diagnosed with congestive heart failure, lower extremity infection, atrial fibrillation and non ST-elevation myocardial infarction. He appears to have undergone a diuresis and antibiotic administration. He was advised to go to a facility for rehabilitation given mobility issues and concerns over falls but he elected to go home. The patient presented to our facility today after suffering a fall at home. The patient has not been ambulatory for several years. He generally is mobile in a wheelchair. He is able to transfer from his lift chair to a a wheelchair most days. However, today he apparently misjudged distance, became unstable and fell. He contacted EMS for assistance and was brought to the hospital for evaluation. He denies any associated dizziness or lightheadedness. He cannot recall any syncopal episodes. He has been aware of palpitations. He denies any symptoms of chest pain or breathing difficulty. He sleeps upright in a lift chair. He states he does not sleep in a reclined position due to back pain. He has persistent lower extremity edema but has difficulty feeling his legs. He denied pain in his lower extremities. Allergies Allergy/AdvReac Type Severity Reaction Status Date / Time lisinopril AdvReac Intermediate Cough Verified 10/06/22 15:38 Home Medications Medication Instructions Recorded Confirmed Type diaper,brief,adult,disposable #120 ea 04/13/19 09/27/22 Rx (Briefs, Adult-Extra Large) pen needle, diabetic 32 gauge x #100 ea 04/25/19 09/27/22 Rx 5/32" (1st Tier Unifine Pentips) Diabetic Shoes #1 ea 04/27/21 09/27/22 Rx Extra Heavy Duty Wheelchair #1 ea 06/29/21 09/27/22 Rx lancets 33 gauge (BD Ultra Fine #100 ea 11/10/21 09/27/22 Rx Lancets) finasteride 5 mg tablet 5 mg PO DAILY #90 tabs 02/26/22 10/06/22 Rx pen needle, diabetic 32 gauge x #100 ea 03/04/22 09/27/22 Rx 5/32" (BD Sofy 2nd Gen Pen Needle) furosemide 20 mg tablet (Lasix) 40 mg PO DAILY #60 tabs 07/01/22 10/06/22 Rx allopurinol 300 mg tablet 300 mg PO DAILY #90 tabs 07/07/22 10/06/22 Rx losartan 100 mg tablet 100 mg PO DAILY #90 tabs 07/07/22 10/06/22 Rx metoprolol succinate 50 mg 50 mg PO DAILY #90 tabs 07/16/22 10/06/22 Rx tablet,extended release 24 hr tamsulosin 0.4 mg capsule 0.4 mg PO DAILY #180 caps 07/16/22 10/06/22 Rx atorvastatin 10 mg tablet 10 mg PO DAILY #90 tabs 08/04/22 10/06/22 Rx insulin glargine U-300 conc 300 25 unit (0.0833 mL) subcut DAILY 08/12/22 10/06/22 Rx unit/mL (1.5 mL) subcutaneous pen #13.5 mL (Toujeo SoloStar U-300 Insulin) Hinged knee brace #1 ea 08/15/22 09/27/22 Rx diaper,brief,adult,disposable #32 ea 08/15/22 09/27/22 Rx motor scooter #1 ea 08/15/22 09/27/22 Rx apixaban 5 mg tablet 5 mg PO BID #60 tabs 09/20/22 10/06/22 Rx aspirin 81 mg tablet,delayed 81 mg PO DAILY #30 tabs 09/20/22 10/06/22 Rx release Diabetic Shoes #1 ea 09/27/22 09/27/22 Rx doxepin 75 mg capsule 225 mg PO HS PRN Sleep 10/06/22 10/06/22 History dulaglutide 3 mg/0.5 mL 0 mg subcut WK 10/06/22 10/06/22 History subcutaneous pen injector ipratropium 20 mcg-albuterol 100 1 puff inhalation TID PRN 10/06/22 10/06/22 History mcg/actuation mist for inhalation BREATHING ISSUES (Combivent Respimat) Patient History Medical History Arthritis Atrial fibrillation (09/2022) BPH (benign prostatic hyperplasia) Chronic diastolic heart failure Chronic kidney disease, stage III (moderate) Chronic venous stasis dermatitis of both lower extremities Depression Diabetes mellitus type 2 with complications Gout H/O osteomyelitis Hearing deficit History of amputation of toe Onset: 23 December 2017 R great toe, R 2nd toe Hyperlipidemia Hypertension Mobitz type 1 second degree AV block Osteoarthritis Peripheral arterial disease Type 2 diabetes mellitus with diabetic neuropathy Urinary incontinence Venous insufficiency (chronic) (peripheral) Wheelchair bound Surgical History History of cataract surgery Right eye, 2016; L eye 2018 History of foot surgery tumor removal; left S/P arterial stent R leg, December 2017 S/P hip replacement 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) secondary to osteomyelitis Status post amputation of toe of left foot (07/06/21) L 2nd toe Status post amputation of toe of left foot (09/10/21) L 3rd adn 4th toes (d/t osteomyelitis) Status post amputation of toe of right foot R great toe, December 23, 2017 Total knee replacement status Right Family History Brother Cardiac disorder Aunt Colorectal cancer Sister Hypertension Breast cancer Denies family history of Ovarian cancer Prostate cancer Myocardial infarction Social History Smoking Status: Never smoker Second Hand Exposure: Yes; Hx Alcohol Use: No Hx Substance Use: No Preferred Language: Turkmen Communication Ability: Effective Visual Impairment: Limited Hearing Ability: Hard of Hearing Beliefs That Will Affect Care: None marital status: Current Living Situation: Alone Current Living Situation Comment: 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 No recent fevers. He feels cold all the time. Physical Exam Physical Exam: The patient is alert and oriented. Mood and affect appeared normal. He answered all questions appropriately. Hard of hearing. Morbidly obese. HEENT: Pupils are equal and reactive to light and accommodation. Extraocular movements are intact. The sclerae are anicteric. Neuro: Cranial nerves intact (wearing mask) Lungs: Clear to auscultation bilaterally. He has good air movement without use of accessory muscles. No rales wheezes or rhonchi. Cardiac: Heart demonstrates an irregular rhythm. Normal S1 and S2. No murmurs on examination. Pulses: The patient has palpable radial pulses bilaterally that are equal in intensity Extremities: No toes on the left foot. Several toe amputations on the right foot. Significant edema and lymphedema on both lower extremities with erythema, venous stasis and diabetic foot ulcers. Skin: I did not appreciate any rashes on examination today. Results & Data ([facility]) Vital Signs (Past 12 Hours) Vital Signs Temp Pulse Pulse Resp BP BP Pulse Ox 10/06/22 16:16 68 92 10/06/22 15:33 74 172/92 H 94 10/06/22 14:45 65 20 183/89 H 92 10/06/22 14:30 72 18 157/100 H 91 10/06/22 14:15 62 16 183/78 H 95 10/06/22 13:08 36.1 C L 64 14 159/77 H 94 10/06/22 13:59 65 20 93 10/06/22 13:53 67 20 94 O2 Del Method 10/06/22 16:16 Room Air 10/06/22 15:33 Room Air 10/06/22 14:45 Room Air 10/06/22 14:30 Room Air 10/06/22 14:15 Room Air 10/06/22 13:08 Room Air 10/06/22 13:59 Room Air 10/06/22 13:53 Room Air Laboratory Results Abnormal Lab Results 10/06/22 10/06/22 10/06/22 13:43 13:43 13:43 WBC 10.97 H RBC 3.95 L Hgb 11.1 L Hct 35.6 L MCV 90.1 MCH 28.1 MCHC 31.2 L RDW Std Deviation 50.4 H RDW Coeff of Ana María 15.5 H Plt Count 255 MPV 10.3 Immature Gran % (Auto) 0.5 Neut % (Auto) 77.8 Lymph % (Auto) 13.1 O'Brien % (Auto) 6.5 Eos % (Auto) 1.6 Baso % (Auto) 0.5 Neut # (Auto) 8.53 H Lymph # (Auto) 1.44 O'Brien # (Auto) 0.71 Eos # (Auto) 0.18 Baso # (Auto) 0.06 Immature Gran # (Auto) 0.05 H PT INR APTT PTT Ratio Sodium 135 L Potassium 3.9 Chloride 102 Carbon Dioxide 27 Anion Gap 6 BUN 27 H Creatinine 1.26 Est Cr Clr Drug Dosing Not Reportable Est GFR ( Amer) 64.7 Est GFR (Non-Af Amer) 55.8 BUN/Creatinine Ratio 21.4 H Glucose 210 H Lactate Calcium 7.8 L Magnesium 1.7 Total Bilirubin 0.5 Direct Bilirubin 0.1 AST 14 ALT 11 Alkaline Phosphatase 162 H Troponin I High Sens 26.0 H Total Protein 6.7 Albumin 2.8 L Procalcitonin 0.08 Urine Color Urine Appearance Urine pH Ur Specific Elberta Urine Protein Urine Glucose (UA) Urine Ketones Urine Blood Urine Nitrite Urine Bilirubin Urine Urobilinogen Ur Leukocyte Esterase Urine WBC (Auto) Urine RBC (Auto) U Hyaline Cast (Auto) U Epithel Cells (Auto) Urine Bacteria (Auto) SARS-CoV-2 (PCR) Influenza Type A (PCR) Influenza Type B (PCR) RSV (RT-PCR) 10/06/22 10/06/22 10/06/22 13:43 13:43 13:45 WBC RBC Hgb Hct MCV MCH MCHC RDW Std Deviation RDW Coeff of Ana María Plt Count MPV Immature Gran % (Auto) Neut % (Auto) Lymph % (Auto) O'Brien % (Auto) Eos % (Auto) Baso % (Auto) Neut # (Auto) Lymph # (Auto) O'Brien # (Auto) Eos # (Auto) Baso # (Auto) Immature Gran # (Auto) PT 11.2 INR 1.1 APTT 33.2 H PTT Ratio 1.2 Sodium Potassium Chloride Carbon Dioxide Anion Gap BUN Creatinine Est Cr Clr Drug Dosing Est GFR ( Amer) Est GFR (Non-Af Amer) BUN/Creatinine Ratio Glucose Lactate 1.2 Calcium Magnesium Total Bilirubin Direct Bilirubin AST ALT Alkaline Phosphatase Troponin I High Sens Total Protein Albumin Procalcitonin Urine Color Urine Appearance Urine pH Ur Specific Elberta Urine Protein Urine Glucose (UA) Urine Ketones Urine Blood Urine Nitrite Urine Bilirubin Urine Urobilinogen Ur Leukocyte Esterase Urine WBC (Auto) Urine RBC (Auto) U Hyaline Cast (Auto) U Epithel Cells (Auto) Urine Bacteria (Auto) SARS-CoV-2 (PCR) NEGATIVE Influenza Type A (PCR) Negative Influenza Type B (PCR) Negative RSV (RT-PCR) Negative 10/06/22 16:07 WBC RBC Hgb Hct MCV MCH MCHC RDW Std Deviation RDW Coeff of Ana María Plt Count MPV Immature Gran % (Auto) Neut % (Auto) Lymph % (Auto) O'Brien % (Auto) Eos % (Auto) Baso % (Auto) Neut # (Auto) Lymph # (Auto) O'Brien # (Auto) Eos # (Auto) Baso # (Auto) Immature Gran # (Auto) PT INR APTT PTT Ratio Sodium Potassium Chloride Carbon Dioxide Anion Gap BUN Creatinine Est Cr Clr Drug Dosing Est GFR ( Amer) Est GFR (Non-Af Amer) BUN/Creatinine Ratio Glucose Lactate Calcium Magnesium Total Bilirubin Direct Bilirubin AST ALT Alkaline Phosphatase Troponin I High Sens Total Protein Albumin Procalcitonin Urine Color Yellow Urine Appearance Clear Urine pH 5.0 Ur Specific Elberta 1.019 Urine Protein 2+ H Urine Glucose (UA) Trace H Urine Ketones Negative Urine Blood Negative Urine Nitrite Negative Urine Bilirubin Negative Urine Urobilinogen Negative Ur Leukocyte Esterase Negative Urine WBC (Auto) 1-5 Urine RBC (Auto) 0-4 U Hyaline Cast (Auto) 1-5 U Epithel Cells (Auto) 10-20 H Urine Bacteria (Auto) Negative SARS-CoV-2 (PCR) Influenza Type A (PCR) Influenza Type B (PCR) RSV (RT-PCR) Diagnostic Findings Echocardiogram performed at [facility] on 09/15/2022: Low normal LV systolic function with an ejection fraction of 50-55%. Regional wall motion abnormality involving akinesis of the distal anterior and anteroseptal segment and apex. Pulmonary hypertension with right ventricular systolic pressure estimated 43 mm of mercury. Moderate left atrial dilation. Chest x-ray obtained today did not reveal any acute cardiopulmonary process. PG Care Time/CCT Total # of Minutes Spent Total Time Spent with Patient: Total time spent is greater than 50% in coordination of care (as documented) at patient's floor/unit and/or counseling patient: Coding Level of Care Code 30959 Initial Inpt Care Lvl 3 Diagnoses Atrial fibrillation I48.91 Chronic diastolic heart failure I50.32 Coronary artery disease I25.10 History of CVA (cerebrovascular accident) Z86.73 Mobitz type 1 second degree AV block I44.1
--- NOTE | 2022-10-06 18:28 | Electrocardiogram Report ---
Test Reason : Blood Pressure : / mmHG Vent. Rate : 061 BPM Atrial Rate : 061 BPM P-R Int : 000 ms QRS Dur : 114 ms QT Int : 466 ms P-R-T Axes : 000 029 063 degrees QTc Int : 469 ms Sinus rhythm with Mobitz 1 AV conduction Low voltage QRS Cannot rule out Anteroseptal infarct , age undetermined Abnormal ECG When compared with ECG of 12-AUG-2005 09:34, Minimal criteria for Anteroseptal infarct are now Present Confirmed by Stephen Cash ([id number]) on 10/06/2022 6:27:59 PM Referred By: REFERRED SELF Confirmed By:Noah Cash
--- NOTE | 2022-10-06 18:34 | Electrocardiogram Report ---
Test Reason : Blood Pressure : / mmHG Vent. Rate : 066 BPM Atrial Rate : 090 BPM P-R Int : 000 ms QRS Dur : 110 ms QT Int : 468 ms P-R-T Axes : 000 056 069 degrees QTc Int : 490 ms Poor data quality, interpretation may be adversely affected Sinus rhythm with mobitz 1 AV conduction Low voltage QRS Cannot rule out Anteroseptal infarct (cited on or before 06-OCT-2022) Abnormal ECG When compared with ECG of 06-OCT-2022 13:26, (unconfirmed) Premature ventricular complexes are now Present Premature supraventricular complexes are no longer Present Confirmed by Stephen Cash ([id number]) on 10/06/2022 6:34:28 PM Referred By: REFERRED SELF Confirmed By:Noah Cash
--- NOTE | 2022-10-06 21:07 | Magnetic Resonance Report ---
MR foot LT w/o con HISTORY: 72 years-old Male eval for ostea near lateral foot ulcer chronic pain of the left foot with prior partial amputation COMPARISON: None TECHNIQUE: Multi planar multisequence MRI of the left foot was obtained without the use of IV contras t. FINDINGS: Prior partially indication of the forefoot at the level of the metatarsal-phalangeal joints and mid t o distal diaphyseal fifth metatarsal. No evidence of osteomyelitis at the amputation stumps. The stud y is motion degraded. There is severe osteoarthritis within the midfoot with subcortical cystic verduzco es and edema. Susceptibility artifact noted within the plantar soft tissues suggestive of prior surge ry. There is extensive diffuse subcutaneous and deep tissue edema with muscle atrophy. No drainable a bscess. Ligaments and tendons are not well visualized secondary to motion artifact. IMPRESSION: 1. Motion degraded exam. 2. Postoperative changes as above without MR evidence of osteomyelitis. 3. Diffuse subcutaneous edema suggestive of cellulitis, venous stasis or lymphedema. 4. Skin ulceration of the distal lateral forefoot without abscess. ACT 112: Negative or not required by law. The above report was generated using voice recognition software. It may contain grammatical, syntax o r spelling errors. Electronically signed by: Jose Chavira M.D. 10/06/2022 9:04 PM
[2022-10-06] MEDS ORDERED: IPRATROPIUM BROMIDE/ALBUTEROL respimat INH INH PRN (21:50)
[2022-10-06] MEDS ORDERED: VANCOMYCIN CONSULT ACTIVE PRN (21:50)
[2022-10-06] MEDS ORDERED: CARBOHYDRATES FOR HYPOGLYCEMIA PO PRN (21:50)
[2022-10-06] MEDS ORDERED: GLUCOSE 40% GEL 15 GM TUBE PO PRN (21:50)
[2022-10-06] MEDS ORDERED: GLUCOSE 10 TAB/TUBE PO PRN (21:50)
[2022-10-06] MEDS ORDERED: GLUCAGON FOR INJ 1 MG VIAL SQ PRN (21:50)
[2022-10-06] MEDS ORDERED: DEXTROSE 50% 50 ML SYRINGE IV PRN (21:50)
[2022-10-06] MEDS ORDERED: ALUMINUM/MAGNESIUM SUSP 30 ML UDC PO PRN (21:50)
[2022-10-06] MEDS ORDERED: ONDANSETRON INJ 2 MG/ML 2 ML VIAL IV PRN (21:50)
[2022-10-06] MEDS ORDERED: IPRATROPIUM BROMIDE HFA INHALER INH PRN (22:02)
[2022-10-06] MEDS ORDERED: ALBUTEROL HFA 8 GM INHALER INH PRN (22:02)
[2022-10-06] MEDS ORDERED: LANTUS PER UNIT CHARGE SQ ONE (22:15)
[2022-10-06] MEDS ORDERED: VANCOMYCIN HCL 2,750 MG in SODIUM CHLORIDE 0.9% 500 ML IV ONE (22:15)
[2022-10-06] MEDS: GABAPENTIN 300 MG CAP PO SCH (22:22)
[2022-10-06] MEDS: APIXABAN 5 MG TABLET PO SCH (22:22)
[2022-10-06] MEDS: INSULIN ASPART PER UNIT SC SCH (22:48)
[2022-10-07] MEDS: CEFEPIME 2,000 MG in SYRINGE 0 ML IV SCH ×4 (00:28→23:56)
[2022-10-07 06:49] LABS: Hematocrit (blood only) 31.8 % (40.1-51.0); Mean Corpuscular Hemoglobin 27.9 pg (25.0-34.0); Mean Corpuscular Hgb Conc 31.4 g/dL (32.0-36.0); Mean Corpuscular Volume 88.8 fL (80.0-100.0); Mean Platelet Volume 10.4 fL (9.4-12.4); Platelet Count 237 K/uL (130-400); RDW Coefficient of Variation 15.4 % (11.5-14.5); Red Blood Count 3.58 M/uL (4.63-6.08); White Blood Count 10.99 K/ul (4.8-10.8)
[2022-10-07 06:54] LABS: Estimated Average Glucose 203 mg/dl; Hemoglobin A1C 8.7 % (4.5-5.6)
[2022-10-07 07:13] LABS: Troponin I High Sensitivity 36.7 pg/ml (0-20)
[2022-10-07 07:15] LABS: BUN Creatinine Ratio 26.3 (10-20); Calcium 7.4 mg/dl (8.5-10.1); Creatinine Clr Calc Pharmacy 97.9 ml/min; Est GFR (African American) 86.6 ml/min; Est GFR (Non-African American) 74.7 ml/min; Magnesium 1.5 mg/dl (1.7-2.4); Potassium 3.9 mmol/L (3.5-5.1)
[2022-10-07] MEDS: ASPIRIN 81 MG ECTAB PO SCH (08:04)
[2022-10-07] MEDS: FINASTERIDE 5 MG TAB PO SCH (08:05)
[2022-10-07] MEDS: TAMSULOSIN HCL 0.4 MG CAP PO SCH (08:05)
[2022-10-07] MEDS: allopurinoL 300 MG TAB PO SCH (08:05)
[2022-10-07] MEDS: APIXABAN 5 MG TABLET PO SCH ×2 (08:05→21:38)
[2022-10-07] MEDS: FUROSEMIDE 40 MG TAB PO SCH (08:05)
[2022-10-07] MEDS: LOSARTAN POTASSIUM 50 MG TAB PO SCH (08:05)
[2022-10-07] MEDS: ATORVASTATIN 10 MG TAB PO SCH (08:06)
--- NOTE | 2022-10-07 08:24 | Hospitalist Progress Note ---
Date of Service October 07, 2022 Assessment & Plan (1) Fall: Plan: Patient presents with a fall at home which could be multifactorial. Patient feels this was a ground-level fall and a misstep getting out of his lift chair patient has conduction system abnormality seen on EKG. Recently began medications for A. fib. Concurrently being treated for lower extremity cellulitis with oral antibiotics after discharge from [facility] on 09/17/22. His legs are in very poor condition he obviously is having challenges caring for them at home. It is difficult to tell what is acute and what is chronic with regard to chronic venous stasis changes. Etiologies could be from his arrhythmia could be from metabolice ncephalopathy from his cellulitis present on admission (2) Cellulitis: Plan: Patient has significant lower extremity skin changes of various age previous history of amputations from osteomyelitis associated diabetic leg infections and ulcerations. Patient will be on cefepime and vancomycin wound care consultation MRI of his foot negative for osteomyelitis Blood cultures are pending (3) Atrial fibrillation: Plan: Patient with a history of atrial fibrillation now appears to have AV disassociation. Blood pressure and heart rate have been stable. Cardiology feels this mobitz 1, and recommends stopping metoprolol (4) Chronic diastolic heart failure: Plan: He does not appear to be in acute exacerbation of his diastolic heart failure. Continuing beta-shi therapy and Lasix 40 mg a day Patient remains on aspirin and atorvastatin for secondary cardiovascular risk reduction troponin was mildly elevated and did not trend, PR has been ruled out (5) Diabetes mellitus type 2 with complications: Plan: Patient typically on dulaglutide, glargine 25 units a day A1c is 8.7 losartan for renal protective effects and gabapentin for peripheral neuropathy (6) Chronic kidney disease, stage III (moderate): Plan: Chronic kidney disease stage III secondary to diabetic nephropathy is stable on losartan (7) Obesity: Plan: Patient is morbidly obese with a BMI of 44 this likely impacts his cardiovascular status Plan Patient remains on allopurinol for history of gout Patient remains on tamsulosin and Proscar for BPH DVT prevention is for apixaban Admission and Anticipated Discharge Date Admission Date: October 06, 2022 Subjective Patient states he does not feel much better. Clinically his legs look to be improved. He has had no untoward effects from his apparent cardiac rhythm. Cardiology is recommended discontinuation of metoprolol at this time. Review of Systems Review of Systems: Moderate distress and fatigue , patient feels no improvement no headache, no visual changes no speech or swallowing issues no chest pain, pressure or palpitations Patient has shortness of breath and dyspnea on exertion no abdominal pain, nausea or vomiting, diarrhea or constipation no dysuria, hematuria or frequency no focal joint pain chronic lower extremity swelling discoloration and wounds of his lower legs no back pain, CVA tenderness or radicular pain Erythema stasis changes and open areas of both lower legs left transmetatarsal amputation right amputation of the first 3 toes Overall weak the patient feels he just fell from his chair diabetic neuropathy is present no complaints of anxiety or depression.. Physical Exam Physical Exam: The patient appeared obese and chronically ill Vital signs as documented. Head exam is normocephalic atraumatic Neck is without JVD, thyromegaly, or carotid bruits. Lungs are diminished at the bases with poor excursion Cardiac exam, Rhythm is regular.. No murmurs, rubs or gallops. Abdominal exam reveals normal bowel sounds, soft non tender, no masses there is no intertrigo below his pannus Extremities are bilateral edema redness open areas previous amputation left transmit right first 3 digits Capillary refill is brisk but pulses are unable to be palpated Neurologic exam is alert and oriented, very hard of hearing is oriented x3 diabetic neuropathy is present Skin is with acute and chronic changes to his lower extremities Psychologically is without concerns for anxiety or depression.. Results & Data Results & Data ([facility]) Vital Signs (Past 12 Hours) Vital Signs Pulse Resp BP Pulse Ox Pulse Ox O2 Del Method O2 Del Method 10/07/22 03:43 58 L 22 149/74 H 96 Room Air 10/07/22 00:41 70 22 145/77 H 94 Room Air 10/06/22 22:37 61 95 Room Air 10/06/22 21:51 66 99 Room Air 10/06/22 21:51 99 Room Air 10/06/22 21:43 67 163/84 H 95 Room Air PG Care Time/CCT Total # of Minutes Spent Total Time Spent with Patient: Total time spent is greater than 50% in coordination of care (as documented) at patient's floor/unit and/or counseling patient: Coding Level of Care Code 15795 Subseq Hosp Care Lvl 3 Diagnoses Fall W19.XXXA Cellulitis L03.90 Atrial fibrillation I48.91 Chronic diastolic heart failure I50.32 Diabetes mellitus type 2 with complications E11.8 Chronic kidney disease, stage III (moderate) N18.3 Obesity E66.9
[2022-10-07 08:32] LABS: A calco-baum cmplx NotReported Not Detected (NotDetected); Bact fragilis Not Reported Not Detected (NotDetected); C auris Not Reported Not Detected (NotDetected); Calbicans Not Reported Not Detected (NotDetected); Candida glabrata Not Reported Not Detected (NotDetected); Candida krusei Not Reported Not Detected (NotDetected); Cneoformans/gatti Not Reported Not Detected (NotDetected); Cparapsilosis Not Reported Not Detected (NotDetected); Ctropicalis Not Reported Not Detected (NotDetected); E cloacae compx Not Reported Not Detected (NotDetected); Efaecalis Not Reported Not Detected (NotDetected); Efaecium Not Reported Not Detected (NotDetected); Enterobacterales Not Reported Not Detected (NotDetected); Escherichia coli Not Reported Not Detected (NotDetected); H influenzae Not Reported Not Detected (NotDetected); K aerogenes Not Reported Not Detected (NotDetected); Koxytoca Not Reported Not Detected (NotDetected); Kpneumoniae grp Not Reported Not Detected (NotDetected); Lmonocyt Not Reported Not Detected (NotDetected); N meningitidis Not Reported Not Detected (NotDetected); P aeruginosa Not Reported Not Detected (NotDetected); Proteus spp Not Reported Not Detected (NotDetected); Salmonella spp Not Reported Not Detected (NotDetected); Smarcescens Not Reported Not Detected (NotDetected); Staph lugdunensis Not Reported Not Detected (NotDetected); Staphaureus Not Reported Not Detected (NotDetected); Staphepi Not Reported Not Detected (NotDetected); Staphylococcus spp. DETECTED (NotDetected); Stenmaltophilia Not Reported Not Detected (NotDetected); Strep agal(GrpB) Not Reported Not Detected (NotDetected); Strep pneum Not Reported Not Detected (NotDetected); Strep pyog (GrpA) Not Reported Not Detected (NotDetected); Strep spp Not Reported Not Detected (NotDetected)
[2022-10-07 08:35] LABS: Staph spp. Not Reported DETECTED (NotDetected)
[2022-10-07] MEDS ORDERED: LANTUS PER UNIT CHARGE SQ ONE (09:00)
[2022-10-07] MEDS ORDERED: METOPROLOL SUCC 50MG EXT REL TAB PO SCH (09:00)
[2022-10-07] MEDS: INSULIN ASPART PER UNIT SC SCH ×4 (10:00→22:57)
--- NOTE | 2022-10-07 10:29 | Ultrasound Report ---
US arterial duplex LE BI CLINICAL HISTORY: eval for compromised blood flow TECHNIQUE: Real-time grayscale and color and spectral Doppler ultrasound imaging of the bilateral low er extremity arteries was performed. Measurements calculated based on NASCET criteria. COMPARISON: None available at the time of this dictation. FINDINGS: Limited exam due to patient body habitus and edema in the bilateral lower extremities. Multiple deep veins are seen in the bilateral calves. No increased velocities are detected, however waveforms are m onophasic in the popliteal arteries and cavernous and there is mild parvus tardus waveform of the clara ateral dorsalis pedis arteries. Additional note is made of prominent left groin lymph nodes measuring up to 2.2 x 1.3 x 2.2 cm. IMPRESSION: 1. Monophasic waveforms in the bilateral lower extremities compatible with arterial disease 2. Prominent left groin lymph nodes noted without fatty imani, clinical correlation is recommended. ACT 112: Negative or not required by law. Electronically signed by: Kody Melendez M.D. 10/07/2022 10:28 AM
[2022-10-07] MEDS: ACETAMINOPHEN 325 MG TAB PO PRN ×3 (11:07→23:58)
--- NOTE | 2022-10-07 13:07 | XCELERA ---
[id number] \\[id number]
--- NOTE | 2022-10-07 13:30 | Pharmacy Report ---
Pharmacy PK ABX Note - Date of Service October 07, 2022 - Assessment and Plan Assessment 72 year old M receiving Vancomycin and Cefepime for treatment of cellulitis. * PMHx significant for T2DM, CKD and previous diabetic foot infections leading to osteomyelitis. * Afrebrile. Mild leukocytosis. SCr improving. Lactate and procal normal. * 1/4 bottles from blood cx growing staph species, likely contaminated. Will follow. MRI foot negative for osteomyelitis. Plan Vancomycin * Loading dose: 2750 mg IV x 1 * Maintenance dose: 1000 mg IV every 12 hours * Regimen is predicted to achieve target AUC/SHANNAN of 400-600 mg/L.hr * Trough level ordered for: 10/09/22 Pharmacy will continue to follow and will adjust dose/frequency as necessary. Thank you. Pharmacy has transitioned to AUC monitoring for vancomycin. AUC/SHANNAN is the preferred PK/PD target and is associated with decreased risk of nephrotoxicity compared to traditional trough targets.
[2022-10-07] MEDS ORDERED: VANCOMYCIN HCL 750 MG in SODIUM CHLORIDE 0.9% 250 ML IV SCH (16:00)
[2022-10-07] MEDS: VANCOMYCIN HCL 1,000 MG in SODIUM CHLORIDE 0.9% 250 ML IV SCH (16:34)
--- NOTE | 2022-10-07 16:42 | Cardiology Progress Note ---
Date of Service October 07, 2022 Assessment & Plan (1) Atrial fibrillation: (2) Chronic diastolic heart failure: (3) Coronary artery disease: (4) History of CVA (cerebrovascular accident): (5) Mobitz type 1 second degree AV block: Plan 1. Atrial fibrillation: This is by report. He is continuing on systemic anticoagulation. No recurrent atrial fibrillation documented during this hospitalization. 2. Coronary disease: Presumed. By report he had a abnormal perfusion study performed 2012 suggestive of an anteroapical infarct. He also had a regional wall motion abnormality on his most recent echocardiogram. Multiple risk factors for coronary disease. He can be continued on his anticoagulation. Higher doses of atorvastatin would likely be beneficial. 3. Heart failure with preserved ejection fraction: While he does have lower extremity edema, and lung examination is clear and he is lying flat. I do not believe this necessitates more aggressive diuresis. 4. Mobitz 1 av block: I think we can more clearly confirm Mobitz 1 conduction today. Metoprolol succinate was stopped. Will see if this improves conduction in any regard. No symptoms. Adequate heart rate. Admission and Anticipated Discharge Date Admission Date: October 06, 2022 Subjective This afternoon the patient's main concern was lower extremity pain. He also had some back discomfort. He attributes this to being in bed for over 24 hours. She denies any sense of palpitation. No dizziness. Review of Systems Review of Systems: Per HPI Physical Exam Physical Exam: The patient is alert and oriented. Mood and affect appeared normal. He answered all questions appropriately. Hard of hearing. Morbidly obese. HEENT: Pupils are equal and reactive to light and accommodation. Extraocular movements are intact. The sclerae are anicteric. Neuro: Cranial nerves intact Lungs: Clear to auscultation bilaterally. He has good air movement without use of accessory muscles. No rales wheezes or rhonchi. Cardiac: Heart demonstrates an irregular rhythm. Normal S1 and S2. No murmurs on examination. Pulses: The patient has palpable radial pulses bilaterally that are equal in intensity Extremities: No toes on the left foot. Several toe amputations on the right foot. Significant edema and lymphedema on both lower extremities both feet were wrapped with gauze. Results & Data ([facility]) Vital Signs (Past 12 Hours) Vital Signs Temp Pulse Pulse Resp BP BP Pulse Ox 10/07/22 16:26 36.7 C 54 L 18 147/76 H 96 12/29/22 13:08 10/07/22 10:43 58 L 18 116/41 L 94 Pulse Ox O2 Del Method O2 Del Method O2 Flow Rate 10/07/22 16:26 Room Air 10/07/22 13:08 93 Nasal Cannula 2 10/07/22 10:43 Room Air Laboratory Results Abnormal Lab Results 10/06/22 10/06/22 10/06/22 13:43 22:19 23:09 WBC RBC Hgb Hct MCV MCH MCHC RDW Std Deviation RDW Coeff of Ana María Plt Count MPV Sodium Potassium Chloride Carbon Dioxide Anion Gap BUN Creatinine Est Cr Clr Drug Dosing Est GFR ( Amer) Est GFR (Non-Af Amer) BUN/Creatinine Ratio Glucose POC Glucose 164 H Estimat Average Glucose Hemoglobin A1c Calcium Magnesium Troponin I High Sens 36.4 H D Nasal Screen MRSA (PCR) Staphylococcus sp PCR DETECTED A Bld Cult ID Panel PCR See PCR Comment 10/07/22 10/07/22 10/07/22 06:20 06:20 06:20 WBC 10.99 H RBC 3.58 L Hgb 10.0 L Hct 31.8 L MCV 88.8 MCH 27.9 MCHC 31.4 L RDW Std Deviation 50.0 H RDW Coeff of Ana María 15.4 H Plt Count 237 MPV 10.4 Sodium 138 Potassium 3.9 Chloride 106 Carbon Dioxide 29 Anion Gap 3 BUN 26 H Creatinine 0.99 Est Cr Clr Drug Dosing 97.9 Est GFR ( Amer) 86.6 Est GFR (Non-Af Amer) 74.7 BUN/Creatinine Ratio 26.3 H Glucose 83 POC Glucose Estimat Average Glucose 203 Hemoglobin A1c 8.7 H Calcium 7.4 L Magnesium 1.5 L Troponin I High Sens 36.7 H Nasal Screen MRSA (PCR) Staphylococcus sp PCR Bld Cult ID Panel PCR 10/07/22 10/07/22 10/07/22 06:20 07:13 10:52 WBC RBC Hgb Hct MCV MCH MCHC RDW Std Deviation RDW Coeff of Ana María Plt Count MPV Sodium Potassium Chloride Carbon Dioxide Anion Gap BUN Creatinine Est Cr Clr Drug Dosing Est GFR ( Amer) Est GFR (Non-Af Amer) BUN/Creatinine Ratio Glucose POC Glucose 78 Estimat Average Glucose Hemoglobin A1c Calcium Magnesium Troponin I High Sens Cancelled Nasal Screen MRSA (PCR) Negative Staphylococcus sp PCR Bld Cult ID Panel PCR 10/07/22 10/07/22 12:42 14:43 WBC RBC Hgb Hct MCV MCH MCHC RDW Std Deviation RDW Coeff of Ana María Plt Count MPV Sodium Potassium Chloride Carbon Dioxide Anion Gap BUN Creatinine Est Cr Clr Drug Dosing Est GFR ( Amer) Est GFR (Non-Af Amer) BUN/Creatinine Ratio Glucose POC Glucose 75 Estimat Average Glucose Hemoglobin A1c Calcium Magnesium Troponin I High Sens 36.9 H Nasal Screen MRSA (PCR) Staphylococcus sp PCR Bld Cult ID Panel PCR PG Care Time/CCT Total # of Minutes Spent Total Time Spent with Patient: Total time spent is greater than 50% in coordination of care (as documented) at patient's floor/unit and/or counseling patient: Coding Level of Care Code 04076 Subseq Hosp Care Lvl 2 Diagnoses Atrial fibrillation I48.91 Atrial fibrillation type: unspecified Chronic diastolic heart failure I50.32 Coronary artery disease I25.10 History of CVA (cerebrovascular accident) Z86.73 Mobitz type 1 second degree AV block I44.1 (1) Atrial fibrillation Atrial fibrillation type: unspecified Qualified Code(s): I48.91 - Unspecified atrial fibrillation
--- NOTE | 2022-10-07 17:46 | Electrocardiogram Report ---
Test Reason : Blood Pressure : / mmHG Vent. Rate : 063 BPM Atrial Rate : 091 BPM P-R Int : 000 ms QRS Dur : 104 ms QT Int : 446 ms P-R-T Axes : 073 011 104 degrees QTc Int : 456 ms Sinus rhythm with 2nd degree A-V block (Mobitz I) Anteroseptal infarct (cited on or before 06-OCT-2022) Abnormal ECG When compared with ECG of 06-OCT-2022 15:40, Sinus rhythm is now with 2nd degree A-V block (Mobitz I) T wave amplitude has decreased in Anterior leads Confirmed by Stephen Cash ([id number]) on 10/07/2022 5:45:43 PM Referred By: REFERRED SELF Confirmed By:Noah Cash
[2022-10-07] MEDS: GABAPENTIN 300 MG CAP PO SCH (21:38)
[2022-10-08] MEDS: VANCOMYCIN HCL 1,000 MG in SODIUM CHLORIDE 0.9% 250 ML IV SCH ×2 (05:20→15:52)
[2022-10-08 07:12] LABS: Hematocrit (blood only) 30.2 % (40.1-51.0); Hemoglobin 9.5 g/dl (14.0-18.0); Mean Corpuscular Hemoglobin 28.4 pg (25.0-34.0); Mean Corpuscular Hgb Conc 31.5 g/dL (32.0-36.0); Mean Corpuscular Volume 90.4 fL (80.0-100.0); Mean Platelet Volume 10.4 fL (9.4-12.4); Platelet Count 231 K/uL (130-400); RDW Coefficient of Variation 15.9 % (11.5-14.5); RDW Standard Deviation 51.8 fL (36.4-46.3); Red Blood Count 3.34 M/uL (4.63-6.08); White Blood Count 9.14 K/ul (4.8-10.8)
[2022-10-08 07:31] LABS: BUN Creatinine Ratio 23.6 (10-20); Calcium 7.4 mg/dl (8.5-10.1); Creatinine Clr Calc Pharmacy 76.5 ml/min; Est GFR (African American) 66.6 ml/min; Est GFR (Non-African American) 57.5 ml/min; Magnesium 1.6 mg/dl (1.7-2.4); Potassium 4.2 mmol/L (3.5-5.1)
[2022-10-08] MEDS: CEFEPIME 2,000 MG in SYRINGE 0 ML IV SCH (07:39)
[2022-10-08] MEDS: APIXABAN 5 MG TABLET PO SCH ×2 (07:40→21:19)
[2022-10-08] MEDS: ATORVASTATIN 10 MG TAB PO SCH (07:40)
[2022-10-08] MEDS: FUROSEMIDE 40 MG TAB PO SCH (07:40)
[2022-10-08] MEDS: ASPIRIN 81 MG ECTAB PO SCH (07:40)
[2022-10-08] MEDS: TAMSULOSIN HCL 0.4 MG CAP PO SCH (07:41)
[2022-10-08] MEDS: allopurinoL 300 MG TAB PO SCH (07:41)
[2022-10-08] MEDS: LOSARTAN POTASSIUM 50 MG TAB PO SCH (07:41)
[2022-10-08] MEDS: FINASTERIDE 5 MG TAB PO SCH (07:41)
[2022-10-08] MEDS: MAGNESIUM SULFATE / D5W 1 GM/100 ML BAG IV SCH ×2 (08:38→10:39)
[2022-10-08] MEDS: INSULIN ASPART PER UNIT SC SCH ×4 (08:57→21:22)
[2022-10-08] MEDS ORDERED: LANTUS PER UNIT CHARGE SQ SCH ×2 (09:00)
[2022-10-08] MEDS ORDERED: Nursing to Pharmacy Communication SCH ×2 (09:00→17:45)
--- NOTE | 2022-10-08 13:01 | Electrocardiogram Report ---
Test Reason : Blood Pressure : / mmHG Vent. Rate : 051 BPM Atrial Rate : 051 BPM P-R Int : 000 ms QRS Dur : 108 ms QT Int : 490 ms P-R-T Axes : 000 010 075 degrees QTc Int : 451 ms Sinus rhythm with Mobitz 1 AV conduction Low voltage QRS Cannot rule out Anteroseptal infarct (cited on or before 06-OCT-2022) Abnormal ECG Confirmed by Stephen Cash ([id number]) on 10/08/2022 1:00:50 PM Referred By: REFERRED SELF Confirmed By:Noah Cash
--- NOTE | 2022-10-08 13:17 | Pharmacy Report ---
Pharmacy Vanc AUC Short Note - Date of Service October 08, 2022 - Assessment & Plan Assessment 72 year old M receiving Vancomycin for treatment of cellulitis/bacteremia * PMHx significant for T2DM, CKD and previous diabetic foot infections leading to osteomyelitis. * Afrebrile. Mild leukocytosis. SCr improving. Lactate and procal normal. * 1/2 bottles from blood cx growing staph species - biofire indicative of MSSA, MRI foot negative for osteomyelitis. Plan Vancomycin * Random level today came back at 17 mcg/ml - this current regimen of vancomycin is estimated to achieve a goal AUC 400-600 and produce a trough level of ~14 mcg/ml, therefore it is reasonable to continue current regimen for now * Provider had d/c cefepime this morning and wanting to continue with MRSA coverage for now * Will consider reordering another vancomycin level in 48 hrs if vancomycin is to continue Pharmacy will continue to follow and will adjust dose/frequency as necessary. Thank you.
[2022-10-08] MEDS: CALCIUM 600MG + VIT D 400 IU TAB PO SCH (14:43)
[2022-10-08] MEDS: ACETAMINOPHEN 325 MG TAB PO PRN (16:25)
--- NOTE | 2022-10-08 16:51 | Hospitalist Progress Note ---
Date of Service October 08, 2022 Assessment & Plan (1) Ambulatory dysfunction: Plan: Mr. Maynard is a 72 yo M who was admitted after falling at home. - ambulatory dysfunction is acute on chronic - patient feels this was a ground-level fall and a misstep getting out of his lift chair (mechanical). However, he was also found to have a conduction system abnormality on EKG and is concurrently being treated for lower extremity cellulitis with oral antibiotics after discharge from [facility] on 09/17/22. - fall precautions while in patient - PT/OT evals ordered, anticipate need for rehab/SNF placement Cellulitis: - Patient has significant lower extremity skin changes of various age - previous history of amputations from osteomyelitis associated diabetic leg infections and ulcerations - He had been sent out of [facility] on Augmentin; he was placed on cefepime and vancomycin on admission due to concern of possible osteomyelitis --> MRI foot was negative for such - WBC 10.99 on admission --> 9 today. Two of four blood cultures growing coag neg staph. - Nasal MRSA swab neg on admission - Abx regimen deescalated: Cefepime d/c and will change vanco to Rocephin. Trend CBC and continue to follow cultures. If he clinically worsens --> and he will likely be here long enough to reveal such (awaiting rehab placement over Holiday weekend), can always re-escalate abx. - wound care following - trend CBC and follow blood cultures Atrial fibrillation: - Patient with a history of atrial fibrillation now appears to have AV disassociation. - Cardiology feels this 2nd degree heart block, mobitz 1, and recommends stopping metoprolol - anticoagulated on Eliquis Chronic diastolic heart failure: - He does not appear to be in acute exacerbation of his diastolic heart failure. - discontinuing beta-shi therapy as above - continue Lasix 40 mg daily and losartan 100mg daily Peripheral Vascular disease - Arterial duplex of LE done, showing evidence of arterial disease (although report did not indicate if this was mild, moderate or severe) - I did place consult for vascular surgery to evaluate him and determine of he was a candidate for stenting of vessels given hx of amputations/ulcers - vascular risk factor control is of importance: - continue daily baby ASA - Lipitor dose increased from 10 to 80mg daily - continue ARB - A1c elevated to 8.7 - see management below Diabetes mellitus type 2 with complications: - A1c is 8.7 above goal - Patient typically on dulaglutide (dose uncertain - apparently gets through mail order pharmacy?), glargine 25 units a day - Goal blood sugar 110 -140; SSI and lantus being given here - losartan for renal protective effects and gabapentin for peripheral neuropathy - Patient may also benefit from starting an SGLT2i for added renal protection Lymphadenopathy - Prominent left groin lymph nodes noted without fatty imani noted incidentally on arterial duplex - suspect reactive due to LE cellulitis infection Hypocalcemia - Ca level corrects to 8.4 - ionized level low - not symptomatic, IV repletion not indicated - PO supplement ordered Chronic kidney disease, stage III (moderate): - secondary to diabetic nephropathy is stable on losartan - consider adding SGLT2i as above Obesity: - Patient is morbidly obese with a BMI of 44 this likely impacts his cardiovascular status - on Trulicity as above Gout - continue home allopurinol BPH - continue proscar Diet: DM II, heart healthy Dvt ppx: on eliquis Code: full Dispo: Med/Surg. Awaiting PT/Ot evals, anticipate placement Admission and Anticipated Discharge Date Admission Date: October 06, 2022 Subjective No acute events overnight. Patient is frustrated with having to be in hospital. He lives alone and has had difficulty with ambulation. He does have a life alter which he uses when he falls (rather frequently). He was apparently recently admitted to [facility] and refused acute rehab stay. He says he is willing to go to rehab if it helps him get out of the hospital faster. Review of Systems Review of Systems: All systems reviewed & are unremarkable except as noted in HPI & below Physical Exam Constitutional: WD/WN, vitals as above Eyes: + anicteric sclerae ENMT: external ear and nose normal, oropharynx normal Neck: trachea midline, no thyromegaly Respiratory: normal respiratory effort Cardiovascular: Rate/Rhythm: regular rate and + irregularly irregular Extremities: + pedal edema Gastrointestinal (Abdomen): normal bowel sounds, soft, nontender, no hepatosplenomegaly Musculoskeletal: Head/Neck/Chest: normocephalic and head atraumatic Skin: no rashes, warm and dry + ulcer + b/l LE are erytehmatous and warm to the touch. Wound care has placed wraps on both Neurologic: moves all extremities Psychiatric: Orientation: alert and oriented x 3 Results & Data Results & Data ([facility]) Vital Signs (Past 12 Hours) Vital Signs Temp Pulse Resp BP Pulse Ox O2 Del Method 10/08/22 12:29 36.4 C L 50 L 18 170/83 H 95 Room Air 10/08/22 08:00 Room Air 10/08/22 07:58 37 C 56 L 20 127/75 92 Room Air PG Care Time/CCT Total # of Minutes Spent Total Time Spent with Patient: Total time spent is greater than 50% in coordination of care (as documented) at patient's floor/unit and/or counseling patient: Coding Level of Care Code 59658 Subseq Hosp Care Lvl 2 Diagnoses Ambulatory dysfunction R26.2
--- NOTE | 2022-10-08 18:14 | Cardiology Progress Note ---
Date of Service October 08, 2022 Assessment & Plan (1) Atrial fibrillation: (2) Chronic diastolic heart failure: (3) Coronary artery disease: (4) History of CVA (cerebrovascular accident): (5) Mobitz type 1 second degree AV block: Plan 1. Atrial fibrillation: This is by report. He is continuing on systemic anticoagulation. No recurrent atrial fibrillation documented during this hospitalization. 2. Coronary disease: Presumed. By report he had a abnormal perfusion study performed 2012 suggestive of an anteroapical infarct. He also had a regional wall motion abnormality on his most recent echocardiogram. Multiple risk factors for coronary disease. He can be continued on his anticoagulation. LDL measured earlier this year was 63. 3. Heart failure with preserved ejection fraction: While he does have lower extremity edema, and lung examination is clear and he is lying flat. I do not believe this necessitates more aggressive diuresis. He can continue on his current daily dose of furosemide. 4. Mobitz 1 av block: Adequate heart rate. No symptoms. Metoprolol discontinued. A cardiac perspective he appears stable for discharge. He should continue on his daily dose of diuretic, atorvastatin and apixaban. I think aspirin could be safely discontinued as he does not appear to have another indication for anti- platelet therapy in the setting of anticoagulation. Metoprolol is discontinued. Admission and Anticipated Discharge Date Admission Date: October 06, 2022 Subjective This afternoon the patient reported improvement in his lower extremity discomfort. He denied breathing trouble or chest pain. No sense of palpitation. Anxious for discharge. Review of Systems Review of Systems: Per HPI Physical Exam Physical Exam: The patient is alert and oriented. Mood and affect appeared normal. He answered all questions appropriately. Hard of hearing. Morbidly obese. Neuro: Cranial nerves intact Lungs: Clear to auscultation bilaterally. He has good air movement without use of accessory muscles. No rales wheezes or rhonchi. Cardiac: Heart demonstrates an irregular rhythm. Normal S1 and S2. No murmurs on examination. Pulses: The patient has palpable radial pulses bilaterally that are equal in intensity Extremities: No toes on the left foot. Several toe amputations on the right foot. Significant edema and lymphedema on both lower extremities both feet were wrapped with gauze. Results & Data ([facility]) Vital Signs (Past 12 Hours) Vital Signs Temp Pulse Resp BP Pulse Ox O2 Del Method 10/08/22 12:29 36.4 C L 50 L 18 170/83 H 95 Room Air 10/08/22 08:00 Room Air 10/08/22 07:58 37 C 56 L 20 127/75 92 Room Air Laboratory Results Abnormal Lab Results 10/07/22 10/07/22 10/07/22 21:16 21:18 21:36 WBC RBC Hgb Hct MCV MCH MCHC RDW Std Deviation RDW Coeff of Ana María Plt Count MPV Sodium Potassium Chloride Carbon Dioxide Anion Gap BUN Creatinine Est Cr Clr Drug Dosing Est GFR ( Amer) Est GFR (Non-Af Amer) BUN/Creatinine Ratio Glucose POC Glucose 57 L* 60 L* 70 Calcium Ionized Calcium Magnesium Random Vancomycin 10/07/22 10/08/22 10/08/22 22:49 02:02 06:54 WBC 9.14 RBC 3.34 L Hgb 9.5 L Hct 30.2 L MCV 90.4 MCH 28.4 MCHC 31.5 L RDW Std Deviation 51.8 H RDW Coeff of Ana María 15.9 H Plt Count 231 MPV 10.4 Sodium Potassium Chloride Carbon Dioxide Anion Gap BUN Creatinine Est Cr Clr Drug Dosing Est GFR ( Amer) Est GFR (Non-Af Amer) BUN/Creatinine Ratio Glucose POC Glucose 96 76 Calcium Ionized Calcium Magnesium Random Vancomycin 10/08/22 10/08/22 10/08/22 06:54 07:14 08:35 WBC RBC Hgb Hct MCV MCH MCHC RDW Std Deviation RDW Coeff of Ana María Plt Count MPV Sodium 138 Potassium 4.2 Chloride 106 Carbon Dioxide 28 Anion Gap 4 BUN 29 H Creatinine 1.23 Est Cr Clr Drug Dosing 76.5 Est GFR ( Amer) 66.6 Est GFR (Non-Af Amer) 57.5 BUN/Creatinine Ratio 23.6 H Glucose 81 POC Glucose 86 Calcium 7.4 L Ionized Calcium 1.09 L Magnesium 1.6 L Random Vancomycin 10/08/22 10/08/22 10/08/22 11:20 11:59 16:32 WBC RBC Hgb Hct MCV MCH MCHC RDW Std Deviation RDW Coeff of Ana María Plt Count MPV Sodium Potassium Chloride Carbon Dioxide Anion Gap BUN Creatinine Est Cr Clr Drug Dosing Est GFR ( Amer) Est GFR (Non-Af Amer) BUN/Creatinine Ratio Glucose POC Glucose 124 H 64 L* Calcium Ionized Calcium Magnesium Random Vancomycin 17.0 10/08/22 16:45 WBC RBC Hgb Hct MCV MCH MCHC RDW Std Deviation RDW Coeff of Ana María Plt Count MPV Sodium Potassium Chloride Carbon Dioxide Anion Gap BUN Creatinine Est Cr Clr Drug Dosing Est GFR ( Amer) Est GFR (Non-Af Amer) BUN/Creatinine Ratio Glucose POC Glucose 124 H Calcium Ionized Calcium Magnesium Random Vancomycin PG Care Time/CCT Total # of Minutes Spent Total Time Spent with Patient: Total time spent is greater than 50% in coordination of care (as documented) at patient's floor/unit and/or counseling patient: Coding Level of Care Code 98294 Subseq Hosp Care Lvl 2 Diagnoses Atrial fibrillation I48.91 Atrial fibrillation type: unspecified Chronic diastolic heart failure I50.32 Coronary artery disease I25.10 History of CVA (cerebrovascular accident) Z86.73 Mobitz type 1 second degree AV block I44.1 (1) Atrial fibrillation Atrial fibrillation type: unspecified Qualified Code(s): I48.91 - Unspecified atrial fibrillation
[2022-10-08] MEDS: cefTRIAXone SODIUM 2,000 MG in DEXTROSE 5% 50 ML IV SCH (21:18)
[2022-10-08] MEDS: GABAPENTIN 300 MG CAP PO SCH (21:19)
[2022-10-09] MEDS: ACETAMINOPHEN 325 MG TAB PO PRN (00:08)
[2022-10-09 06:14] LABS: Hematocrit (blood only) 30.7 % (40.1-51.0); Hemoglobin 9.5 g/dl (14.0-18.0); Mean Corpuscular Hgb Conc 30.9 g/dL (32.0-36.0); Mean Corpuscular Volume 90.6 fL (80.0-100.0); Mean Platelet Volume 10.4 fL (9.4-12.4); Platelet Count 228 K/uL (130-400); RDW Coefficient of Variation 15.4 % (11.5-14.5); RDW Standard Deviation 50.5 fL (36.4-46.3); Red Blood Count 3.39 M/uL (4.63-6.08); White Blood Count 9.36 K/ul (4.8-10.8)
[2022-10-09 06:39] LABS: BUN Creatinine Ratio 24.4 (10-20); Calcium 7.6 mg/dl (8.5-10.1); Creatinine Clr Calc Pharmacy 74.1 ml/min; Est GFR (African American) 64.1 ml/min; Est GFR (Non-African American) 55.3 ml/min; Magnesium 1.9 mg/dl (1.7-2.4); Potassium 4.3 mmol/L (3.5-5.1)
--- NOTE | 2022-10-09 08:25 | Hospitalist Progress Note ---
Date of Service October 09, 2022 Assessment & Plan (1) Fall: Plan: Patient presents with a fall at home which could be multifactorial (current tx for cellulitis, found conduction abnormality on admission, chronic debility). Patient feels this was a ground-level fall and a misstep getting out of his lift chair. Awaiting discharge to rehab facility when medically appropriate; approaching medical stability at this point. Care agency expressed concern about home dis charge given multiple reports of finding patient soiled at home, multiple falls. PT and OT recommend SNF. Is amenable at this moment to placement if it is deemed necessary; Case Management following and referrals placed. (2) Cellulitis: Plan: Patient has significant lower extremity skin changes of various age, with previous history of amputations from osteomyelitis, and associated diabetic leg infections and ulcerations. MRI of his foot negative for osteomyelitis. Continue wound care, as well as at SNF on discharge. WBC count stable and normal today. BCx 10/06 with CoNS not lugdunensis, BCx PCR without concerning Staph isolates, only in 1/2 tubes will consider as contaminant at this time. Continue ceftriaxone for now with low threshold to escalate Abx for MRSA/Pseudomonal coverage given DM2 Hx and multiple wounds. (3) Mobitz type 1 second degree AV block: Plan: Cardiology consulted for AV dissociation found during this admission, determined to be Mobitz 1 and metoprolol discontinued, signed off at this time. HR well controlled, transition to Med/Surg (4) Atrial fibrillation: Plan: Patient with a history of atrial fibrillation diagnosed at outside hospital earlier this month, however no episodes of such while admitted to date. Blood pressure and heart rate have been stable. Continue apixaban. Metoprolol discontinued due to AV conduction abnormality. (5) Chronic diastolic heart failure: Plan: He does not appear to be in acute exacerbation of his diastolic heart failure. Continue Lasix 40 mg a day. Beta shi discontinued as above. Patient remains on atorvastatin for secondary cardiovascular risk reduction. Aspirin discontinued per Cardiology recommendations given patient is now on Eliquis. Troponin was very mildly elevated on admit and did not trend; no evidence of ACS. (6) Diabetes mellitus type 2 with complications: Plan: Patient typically on dulaglutide, glargine 25 units a day. A1c 8.7 this admission. Losartan for renal protective effects and gabapentin for peripheral neuropathy. Due to hypoglycemia overnight 10/08 Lantus decreased to 10 units daily, with loosening of sliding scale coverage. Continue to monitor and adjust as necessary while admitted. Concerned about patient's ability to drive given chronic ambulatory dysfunction, peripheral neuropathy with inability to feel feet. (7) Chronic kidney disease, stage III (moderate): Plan: Chronic kidney disease stage III secondary to diabetic nephropathy. Stable on losartan, continue. (8) Obesity: Plan: Morbid obesity with BMI of 42. (9) Gout: Plan: Continue allopurinol. (10) BPH (benign prostatic hyperplasia): Plan: Continue tamsulosin and Proscar. Plan DVT prevention will be covered with apixaban. Admission and Anticipated Discharge Date Admission Date: October 06, 2022 Subjective No acute events overnight. Continues to have Mobitz 1 block on telemetry. Vitals normal overnight. Frustrated about being in the hospital; reports has had wounds on legs for "months". Frustrated about the food in the hospital. Denies chest pain, shortness of breath, abdominal pain. Denies pain in his legs at this time. Review of Systems Review of Systems: All systems reviewed & are unremarkable except as noted in Subjective Physical Exam Constitutional: well developed and well nourished; no acute distress Eyes: PERRL, conjunctivae normal, anicteric sclerae ENMT: external ear and nose normal, oropharynx normal Respiratory: normal respiratory effort, lungs clear to auscultation Cardiovascular: RRR, no murmur, pedal edema noted Gastrointestinal (Abdomen): normal bowel sounds, soft, nontender, no hepatosplenomegaly Musculoskeletal: No cyanosis or clubbing bilateral UE strength 5/5 diminished b/l LE strength, chronic Skin: no rashes, warm and dry Has wraps on bilateral LE placed by wound care (did not completely remove bandages today during exam) + LLE medial ulcer below knee, mild surrounding erythema. Also has ulceration on bottom of left lateral foot Other areas of erythema on bilateral LE noted without ulceration Neurologic: AAOx3, normal speech No tremor Psychiatric: Orientation: alert, oriented to person and oriented to place Affect: + irritable affect Results & Data Results & Data ([facility]) Vital Signs (Past 12 Hours) Vital Signs Temp Pulse Resp BP Pulse Ox O2 Del Method 10/09/22 07:46 36.6 C 64 20 130/76 93 Room Air 10/09/22 03:30 36.3 C L 62 18 130/76 94 Room Air 10/08/22 22:45 36.5 C 60 20 110/51 L 93 Room Air 10/08/22 21:19 Room Air 10/08/22 21:07 36.4 C L 64 20 149/73 H 94 Room Air PG Care Time/CCT Total # of Minutes Spent Total Time Spent with Patient: Total time spent is greater than 50% in coordination of care (as documented) at patient's floor/unit and/or counseling patient: Coding Level of Care Code 35792 Subseq Hosp Care Lvl 3 Diagnoses Fall W19.XXXA Cellulitis L03.90 Mobitz type 1 second degree AV block I44.1 Atrial fibrillation I48.91 Atrial fibrillation type: unspecified Chronic diastolic heart failure I50.32 Diabetes mellitus type 2 with complications E11.8 Chronic kidney disease, stage III (moderate) N18.30 Chronic kidney disease stage 3 subtype: unspecified whether 3a or 3b Obesity E66.9 Gout M10.9 BPH (benign prostatic hyperplasia) N40.0 (1) Chronic kidney disease, stage III (moderate) Chronic kidney disease stage 3 subtype: unspecified whether 3a or 3b Qualified Code(s): N18.30 - Chronic kidney disease, stage 3 unspecified (2) Atrial fibrillation Atrial fibrillation type: unspecified Qualified Code(s): I48.91 - Unspecified atrial fibrillation
[2022-10-09] MEDS: CALCIUM 600MG + VIT D 400 IU TAB PO SCH (08:26)
[2022-10-09] MEDS: LOSARTAN POTASSIUM 50 MG TAB PO SCH (08:26)
[2022-10-09] MEDS: TAMSULOSIN HCL 0.4 MG CAP PO SCH (08:26)
[2022-10-09] MEDS: ASPIRIN 81 MG ECTAB PO SCH (08:26)
[2022-10-09] MEDS: FUROSEMIDE 40 MG TAB PO SCH (08:26)
[2022-10-09] MEDS: APIXABAN 5 MG TABLET PO SCH ×2 (08:26→20:11)
[2022-10-09] MEDS: allopurinoL 300 MG TAB PO SCH (08:26)
[2022-10-09] MEDS: ATORVASTATIN 40 MG TAB PO SCH (08:26)
[2022-10-09] MEDS: FINASTERIDE 5 MG TAB PO SCH (08:26)
[2022-10-09] MEDS: INSULIN ASPART PER UNIT SC SCH ×3 (08:43→17:13)
[2022-10-09] MEDS ORDERED: LANTUS PER UNIT CHARGE SQ SCH (09:00)
[2022-10-09] MEDS ORDERED: ATORVASTATIN 40 MG TAB PO SCH (09:00)
[2022-10-09] MEDS: LANTUS PER UNIT CHARGE SQ SCH (11:35)
[2022-10-09] MEDS: cefTRIAXone SODIUM 2,000 MG in DEXTROSE 5% 50 ML IV SCH (18:20)
[2022-10-09] MEDS: GABAPENTIN 300 MG CAP PO SCH (20:11)
[2022-10-10] MEDS: ATORVASTATIN 40 MG TAB PO SCH (10:05)
[2022-10-10] MEDS: APIXABAN 5 MG TABLET PO SCH ×2 (10:05→21:33)
[2022-10-10] MEDS: allopurinoL 300 MG TAB PO SCH (10:05)
[2022-10-10] MEDS: FINASTERIDE 5 MG TAB PO SCH (10:08)
[2022-10-10] MEDS: CALCIUM 600MG + VIT D 400 IU TAB PO SCH (10:08)
[2022-10-10] MEDS: FUROSEMIDE 40 MG TAB PO SCH (10:08)
[2022-10-10] MEDS: TAMSULOSIN HCL 0.4 MG CAP PO SCH (10:09)
[2022-10-10] MEDS: LOSARTAN POTASSIUM 50 MG TAB PO SCH (10:09)
[2022-10-10] MEDS: LANTUS PER UNIT CHARGE SQ SCH (10:15)
--- NOTE | 2022-10-10 10:36 | Hospitalist Progress Note ---
Date of Service October 10, 2022 Assessment & Plan (1) Fall: Plan: Patient presents with a fall at home which could be multifactorial (current tx for cellulitis, found conduction abnormality on admission, chronic debility). Patient feels this was a ground-level fall and a misstep getting out of his lift chair. Care agency expressed concern about home discharge given multiple reports of finding patient soiled at home, not allowing dressing changes at times. PT and OT recommend SNF. Patient is no longer amenable to SNF placement due to not being able to walk at baseline, wanting to go home. Spoke to patient and son Rush who both agree that patient desires home discharge. Will discuss home health services with Case Management and consider d/c home tomorrow with HH services based on continued infection improvement. (2) Cellulitis: Plan: Patient has multiple bilateral LE wounds of varying ages, with previous history of amputations from osteomyelitis, and associated diabetic leg infections and neuropathy. MRI of his foot (large ulcer by bony prominence on lateral foot) negative for osteomyelitis. Continue wound care, as well as at home on discharge. WBC count stable and normal today, 10.64. BCx 10/06 with CoNS not lugdunensis, BCx PCR without concerning Staph isolates, only in 1/2 tubes will consider as contaminant at this time. Continue ceftriaxone for now with low threshold to escalate Abx for MRSA/Pseudomonal coverage given DM2 Hx and multiple wounds if worsening. (3) Mobitz type 1 second degree AV block: Plan: Cardiology consulted for AV dissociation found during this admission, determined to be Mobitz 1 and metoprolol discontinued, signed off at this time. HR well controlled, transitioned to Med/Surg (4) Atrial fibrillation: Plan: Patient with a history of atrial fibrillation diagnosed at outside hospital earlier this month, however no episodes of such while admitted to date. Blood pressure and heart rate have been stable. Continue apixaban. Metoprolol discontinued due to AV conduction abnormality. (5) Chronic diastolic heart failure: Plan: He does not appear to be in acute exacerbation of his diastolic heart failure. Continue Lasix 40 mg a day. Beta shi discontinued as above. Patient remains on atorvastatin for secondary cardiovascular risk reduction. Aspirin discontinued per Cardiology recommendations given patient is now on Eliquis. Troponin was very mildly elevated on admit and did not trend; no evidence of ACS. (6) Diabetes mellitus type 2 with complications: Plan: Patient typically on dulaglutide, glargine 25 units a day. A1c 8.7 this admission. Losartan for renal protective effects and gabapentin for peripheral neuropathy. Due to hypoglycemia overnight 10/08 Lantus decreased to 10 units daily, with discontinuation of sliding scale coverage. BSGs in 100s today, acceptable. Continue to monitor and adjust as necessary while admitted. Concerned about patient's ability to drive given chronic ambulatory dysfunction, peripheral neuropathy with inability to feel feet. Discussed this concern with both patient and son. (7) Chronic kidney disease, stage III (moderate): Plan: Chronic kidney disease stage III secondary to diabetic nephropathy. Stable on losartan, continue. (8) Obesity: Plan: Morbid obesity with BMI of 42. (9) Gout: Plan: Continue allopurinol. (10) BPH (benign prostatic hyperplasia): Plan: Continue tamsulosin and Proscar. Plan DVT prevention will be covered with apixaban. Admission and Anticipated Discharge Date Admission Date: October 06, 2022 Subjective Frustrated today about being in the hospital. Loud voice and talking over this provider during explanation of reason for hospitalization. Spoke with patinet and son on the phone today. No complaints from patient of SOB, chest pain, lower extremities pain. Wants his feet raised to help with burning. Review of Systems Review of Systems: All systems reviewed & are unremarkable except as noted in Subjective Physical Exam 2 Constitutional: well developed and well nourished; no acute distress ENMT: external ear and nose normal, oropharynx normal Respiratory: normal respiratory effort, lungs clear to auscultation Gastrointestinal (Abdomen): normal bowel sounds, soft, nontender, no hepatosplenomegaly Musculoskeletal: No cyanosis or clubbing bilateral UE strength 5/5 diminished b/l LE strength, chronic Skin: no rashes, warm and dry Has wraps on bilateral LE placed by wound care (did not completely remove bandages today during exam) + LLE medial ulcer below knee, mild surrounding erythema improved from yesterday. Also has ulceration on bottom of left lateral foot Other areas of erythema on bilateral LE noted without ulceration Psychiatric: Orientation: alert, oriented to person and oriented to place Affect: + irritable affect Results & Data Results & Data ([facility]) Vital Signs (Past 12 Hours) Vital Signs O2 Del Method 10/10/22 07:00 Room Air PG Care Time/CCT Total # of Minutes Spent Total Time Spent with Patient: Total time spent with this patient's care, on this day of evaluation, including chart review, documentation, orders and communicating plan with care team/patient/family: 55 minutes Coding Level of Care Code 91874 Subseq Hosp Care Lvl 3 Diagnoses Fall W19.XXXA Cellulitis L03.90 Mobitz type 1 second degree AV block I44.1 Atrial fibrillation I48.91 Atrial fibrillation type: unspecified Chronic diastolic heart failure I50.32 Diabetes mellitus type 2 with complications E11.8 Chronic kidney disease, stage III (moderate) N18.30 Chronic kidney disease stage 3 subtype: unspecified whether 3a or 3b Obesity E66.9 Gout M10.9 BPH (benign prostatic hyperplasia) N40.0 (1) Chronic kidney disease, stage III (moderate) Chronic kidney disease stage 3 subtype: unspecified whether 3a or 3b Qualified Code(s): N18.30 - Chronic kidney disease, stage 3 unspecified (2) Atrial fibrillation Atrial fibrillation type: unspecified Qualified Code(s): I48.91 - Unspecified atrial fibrillation
[2022-10-10 11:43] LABS: Basophils # (auto) 0.07 K/uL (0-0.2); Basophils % (auto) 0.7 %; Eosinophils # (auto) 0.36 K/uL (0-0.50); Eosinophils % (auto) 3.4 %; Hematocrit (blood only) 32.6 % (40.1-51.0); Hemoglobin 10.6 g/dl (14.0-18.0); Immature Granulocytes # (auto) 0.05 K/uL (0.00-0.02); Immature Granulocytes % (auto) 0.5 %; Lymphocytes # (auto) 1.42 K/uL (1.2-3.4); Lymphocytes % (auto) 13.3 %; Mean Corpuscular Hgb Conc 32.5 g/dL (32.0-36.0); Mean Platelet Volume 10.7 fL (9.4-12.4); Monocytes % (auto) 7.5 %; Neutrophils # (auto) 7.94 K/uL (1.4-6.5); Neutrophils % (auto) 74.6 %; Platelet Count 248 K/uL (130-400); RDW Coefficient of Variation 15.4 % (11.5-14.5); RDW Standard Deviation 48.3 fL (36.4-46.3); Red Blood Count 3.79 M/uL (4.63-6.08); White Blood Count 10.64 K/ul (4.8-10.8)
[2022-10-10 13:34] LABS: BUN Creatinine Ratio 35.8 (10-20); Calcium 9.7 mg/dl (8.5-10.1); Creatinine Clr Calc Pharmacy 117.2 ml/min; Est GFR (African American) 101.5 ml/min; Est GFR (Non-African American) 87.6 ml/min; Potassium 4.3 mmol/L (3.5-5.1)
[2022-10-10] MEDS: cefTRIAXone SODIUM 2,000 MG in DEXTROSE 5% 50 ML IV SCH (16:45)
[2022-10-10] MEDS: ACETAMINOPHEN 325 MG TAB PO PRN (21:32)
[2022-10-10] MEDS: GABAPENTIN 300 MG CAP PO SCH (21:33)
[2022-10-11] MEDS: TAMSULOSIN HCL 0.4 MG CAP PO SCH (09:27)
[2022-10-11] MEDS: CALCIUM 600MG + VIT D 400 IU TAB PO SCH (09:27)
[2022-10-11] MEDS: FUROSEMIDE 40 MG TAB PO SCH (09:27)
[2022-10-11] MEDS: APIXABAN 5 MG TABLET PO SCH (09:27)
[2022-10-11] MEDS: LOSARTAN POTASSIUM 50 MG TAB PO SCH (09:27)
[2022-10-11] MEDS: FINASTERIDE 5 MG TAB PO SCH (09:27)
[2022-10-11] MEDS: allopurinoL 300 MG TAB PO SCH (09:27)
[2022-10-11] MEDS: ATORVASTATIN 40 MG TAB PO SCH (09:28)
[2022-10-11] MEDS: LANTUS PER UNIT CHARGE SQ SCH (10:06)
--- NOTE | 2022-10-11 13:07 | Discharge Summary ---
Discharge Summary Date of Service October 11, 2022 Admission HPI Per Admitting Provider 72 m with morbid obesity will fall at home and has Complete heart block with AV disassociation on ECG, Pt had traumatic injury ruled out by Ct imaging. Pt has history of afib and is on ch Eliquis typically sees Dr Schmitt in [facility]. Recently treated with Augmentin after discharge 09/17 from [facility] with lower extremity edema, that stay was dx'd with afib this pt has risk factors for heart disease with diabetes, obesity, and record of conducting system disease in his record as Mobitz 1 Patient has fairly significant lower extremity ulcerations which are in various stages of healing at this repair by the patient's body habitus he likely cannot care for his lower extremities by himself at home and he does not have any local caregivers. His legs are worse on the left than the right with chronic venous stasis changes he states that he has had previous vascular interventions but cannot recall exactly where or what he has diabetic neuropathy and cannot feel his feet Admission Exam Per Admitting Provider The patient appeared obese and chronically ill Vital signs as documented. Head exam is normocephalic atraumatic Neck is without JVD, thyromegaly, or carotid bruits. Lungs are diminished at the bases with poor excursion Cardiac exam, Rhythm is regular.. No murmurs, rubs or gallops. Abdominal exam reveals normal bowel sounds, soft non tender, no masses there is no intertrigo below his pannus Extremities are bilateral edema redness open areas previous amputation left transmit right first 3 digits Capillary refill is brisk but pulses are unable to be palpated Neurologic exam is alert and oriented, very hard of hearing is oriented x3 di abetic neuropathy is present Skin is with acute and chronic changes to his lower extremities Psychologically is without concerns for anxiety or depression.. Principal Dx & Hospital Course #1 = Principal Diagnosis (1) Fall: Patient presents with a fall at home which could be multifactorial (current tx for cellulitis, found conduction abnormality on admission, chronic debility). Patient feels this was a ground-level fall and a misstep getting out of his lift chair. Care agency expressed concern about home discharge given multiple reports of finding patient soiled at home, not allowing dressing changes at times. PT and OT recommend SNF. Patient is no longer amenable to SNF placement due to not being able to walk at baseline, wanting to go home. Very verbally aggressive and inappropriate at times during admission with this provider and with nursing/ancillary staff members. Spoke to patient and son Rush on 10/11 who both agree that patient desires home discharge. Home health services able to be arranged and patient willing to assume risk of going home 1/3 despite recommendations to go to SNF. Patient is of sound mind and understands the possible risks of going home including another fall, , worsening of chronic wounds, and other risks. Department of Transportation form filled out as I am concerned that patient has been driving despite being unable to walk, and due to severe neuropathy unable to feel his feet on the pedals. This puts him and other vehicles/pedestrians at significant risk of injury. Patient aware that I filled this form out. (2) Cellulitis: Patient has multiple bilateral LE wounds of varying ages, with previous history of amputations from osteomyelitis, and associated diabetic leg infections and neuropathy. MRI of his foot (large ulcer by bony prominence on lateral foot) negative for osteomyelitis. Continue wound care at home on discharge with wound care appt to be scheduled. WBC count stable and normal /2 (wound not allow blood draw on day of discharge). BCx 10/06 with CoNS not lugdunensis, BCx PCR without concerning Staph isolates, only in 1/2 tubes will consider as contaminant at this time. Ceftriaxone transitioned to cefdinir to complete another 5 days of therapy. (3) Mobitz type 1 second degree AV block: Cardiology consulted for AV dissociation found during this admission, determined to be Mobitz 1 and metoprolol discontinued, signed off at this time. HR well controlled on day of discharge. (4) Atrial fibrillation: Patient with a history of atrial fibrillation diagnosed at outside hospital earlier this month, however no episodes of such while admitted to date. Blood pressure and heart rate have been stable. Continue apixaban. Metoprolol discontinued due to AV conduction abnormality. (5) Chronic diastolic heart failure: He does not appear to be in acute exacerbation of his diastolic heart failure. Continue Lasix 40 mg a day. Beta shi discontinued as above. Patient remains on atorvastatin for secondary cardiovascular risk reduction. Aspirin discontinued per Cardiology recommendations given patient is now on Eliquis. Troponin was very mildly elevated on admit and did not trend; no evidence of ACS. (6) Diabetes mellitus type 2 with complications: Patient typically on dulaglutide, glargine 25 units a day. A1c 8.7 this admission. Losartan for renal protective effects and gabapentin for peripheral neuropathy. Had hypoglycemia on home insulin regimen however does not eat diabetic diet at home (mac and cheese, sandwiches, potatoes, tv dinners are the vast majority of his diet. Also drinks chocolate milk several glasses a day). (7) Chronic kidney disease, stage III (moderate): Chronic kidney disease stage III secondary to diabetic nephropathy. Stable on losartan, continue. (8) Obesity: Morbid obesity with BMI of 42. (9) Gout: Continue allopurinol. (10) BPH (benign prostatic hyperplasia): Continue tamsulosin and Proscar. Discharge Exam Constitutional well developed and well nourished; no acute distress Skin wounds at various stages of healing on bilateral lower extremities, however wounds with resolving surrounding erythema compared to admission Psychiatric Orientation: alert, oriented to person and oriented to place Affect: + irritable affect Updated Medication List Medication Instructions Recorded Confirmed Type diaper,brief,adult,disposable #120 ea 04/13/19 09/27/22 Rx (Briefs, Adult-Extra Large) pen needle, diabetic 32 gauge x #100 ea 04/25/19 09/27/22 Rx 5/32" (1st Tier Unifine Pentips) Diabetic Shoes #1 ea 04/27/21 09/27/22 Rx Extra Heavy Duty Wheelchair #1 ea 06/29/21 09/27/22 Rx lancets 33 gauge (BD Ultra Fine #100 ea 11/10/21 09/27/22 Rx Lancets) finasteride 5 mg tablet 5 mg PO DAILY #90 tabs 02/26/22 10/06/22 Rx pen needle, diabetic 32 gauge x #100 ea 03/04/22 09/27/22 Rx 5/32" (BD Sofy 2nd Gen Pen Needle) furosemide 20 mg tablet (Lasix) 40 mg PO DAILY #60 tabs 07/01/22 10/06/22 Rx allopurinol 300 mg tablet 300 mg PO DAILY #90 tabs 07/07/22 10/06/22 Rx losartan 100 mg tablet 100 mg PO DAILY #90 tabs 07/07/22 10/06/22 Rx metoprolol succinate 50 mg 50 mg PO DAILY #90 tabs 07/16/22 10/06/22 Rx tablet,extended release 24 hr tamsulosin 0.4 mg capsule 0.4 mg PO DAILY #180 caps 07/16/22 10/06/22 Rx atorvastatin 10 mg tablet 10 mg PO DAILY #90 tabs 08/04/22 10/06/22 Rx insulin glargine U-300 conc 300 25 unit (0.0833 mL) subcut DAILY 08/12/22 10/06/22 Rx unit/mL (1.5 mL) subcutaneous pen #13.5 mL (Toujeo SoloStar U-300 Insulin) Hinged knee brace #1 ea 08/15/22 09/27/22 Rx diaper,brief,adult,disposable #32 ea 08/15/22 09/27/22 Rx motor scooter #1 ea 08/15/22 09/27/22 Rx apixaban 5 mg tablet 5 mg PO BID #60 tabs 09/20/22 10/06/22 Rx aspirin 81 mg tablet,delayed 81 mg PO DAILY #30 tabs 09/20/22 10/06/22 Rx release Diabetic Shoes #1 ea 09/27/22 09/27/22 Rx doxepin 75 mg capsule 225 mg PO HS PRN Sleep 10/06/22 10/06/22 History dulaglutide 3 mg/0.5 mL 0 mg subcut WK 10/06/22 10/06/22 History subcutaneous pen injector ipratropium 20 mcg-albuterol 100 1 puff inhalation TID PRN 10/06/22 10/06/22 History mcg/actuation mist for inhalation BREATHING ISSUES (Combivent Respimat) cefdinir 300 mg capsule 300 mg PO BID 5 days #10 caps 10/11/22 Rx gabapentin 300 mg capsule 600 mg PO HS 30 days #60 caps 10/11/22 Rx Hospital Stay Data Consultations 10/06/22 15:16 ED Decision to Admit Stat 10/06/22 21:50 Consult Cardiology Routine 10/11/22 08:10 Consult [facility] regulatory compliance director Routine Diagnostic Imagining Performed 10/06/22 13:24 CT head/brain wo con Stat 10/06/22 16:32 MRI Foot [MR foot LT w/o con] Routine 10/06/22 21:50 US arterial duplex LE BI Routine Pending Results Patient Have Any Pending Studies at Discharge: No Discharge Instructions Given to Patient (Per Discharging Provider) You were admitted to the hospital for evaluation of a fall, and found to have a problem with the electrical flow of the heart. The medication metoprolol was stopped by the heart doctor and that problem got better. You were noted to have an infection of the wounds on your legs. You were given antibiotics through an IV, and discharged with oral antibiotics. These were sent to [facility]. You should take cefdinir, 1 tablet every 12 hours starting tomorrow morning. This will go for 5 days until it is gone. We set up for nurses to come to the house to do wound care multiple times a week, and set up for a wound care clinic visit. You will get called about making this appointment. This is very important to make sure the wounds do not get worse. Your care agency is working on getting you more hours of care at home. You were given gabapentin for nerve pain from diabetes. This is 600 milligrams daily at night. This was also sent to [facility]. I am worried about you driving moving forward, given that you cannot walk and you cannot feel your feet. This is extremely dangerous as you could accidentally hit the wrong pedal, and you could hurt or kill yourself or another pedestrian or cdl bulk driver. Please allow your caregivers to drive you places moving forward as these risks will only continue to increase. Please get urgent medical help if you have any trouble breathing, chest pain, or other symptoms that are concerning to you. You wanted very badly to go home and did not want to go to a rehab facility, so you were discharged home, assuming these risks given that the staff and some of your family are worried about you being at home. Total Time Total Time Spent Total Time Spent (In Minutes): 45 minutes Coding Level of Care Code D/C DAY MANAGEMENT >30 MINS Diagnoses Fall W19.XXXA Cellulitis L03.90 Mobitz type 1 second degree AV block I44.1 Atrial fibrillation I48.91 Atrial fibrillation type: unspecified Chronic diastolic heart failure I50.32 Diabetes mellitus type 2 with complications E11.8 Chronic kidney disease, stage III (moderate) N18.30 Chronic kidney disease stage 3 subtype: unspecified whether 3a or 3b Obesity E66.9 Gout M10.9 BPH (benign prostatic hyperplasia) N40.0
--- NOTE | 2022-10-12 12:36 | Electrocardiogram Report ---
Test Reason : Blood Pressure : / mmHG Vent. Rate : 073 BPM Atrial Rate : 097 BPM P-R Int : 000 ms QRS Dur : 108 ms QT Int : 424 ms P-R-T Axes : 062 000 091 degrees QTc Int : 467 ms Sinus rhythm with 2nd degree A-V block (Mobitz I) with occasional Premature ventricular complexes Septal infarct (cited on or before 06-OCT-2022) Abnormal ECG When compared with ECG of 08-OCT-2022 05:18, Nonspecific T wave abnormality now evident in Lateral leads Confirmed by Dwayne Lux ([id number]) on 10/12/2022 12:36:11 PM Referred By: REFERRED SELF Confirmed By:Dwayne Lux
== END 2022-10-11 15:21 | disposition home health service (06) | DRG 602 ==
LOC: ED 12:58 → SUATTDRO 15:54 → EDINP 15:54 → 4W 19:03 → 3W 10-09 22:50

== ENCOUNTER 2022-11-04 21:57 | Inpatient (IN) ==
[2022-11-04] MEDS ORDERED: SODIUM CHLORIDE 0.9% 1000ML 1,000 ML IV SCH (23:00)
[2022-11-04 23:06] LABS: Basophils # (auto) 0.08 K/uL (0-0.2); Basophils % (auto) 0.7 %; Eosinophils # (auto) 0.04 K/uL (0-0.50); Eosinophils % (auto) 0.3 %; Hematocrit (blood only) 27.4 % (42.0-52.0); Hemoglobin 8.6 g/dl (14.0-18.0); Immature Granulocytes # (auto) 0.06 K/uL (0.01-0.20); Immature Granulocytes % (auto) 0.5 %; Lymphocytes # (auto) 0.85 K/uL (1.2-3.4); Lymphocytes % (auto) 7.4 %; Mean Corpuscular Hemoglobin 28.4 pg (25.0-34.0); Mean Corpuscular Hgb Conc 31.4 g/dL (32.0-36.0); Mean Corpuscular Volume 90.4 fL (80.0-100.0); Mean Platelet Volume 10.1 fL (9.4-12.4); Monocytes # (auto) 0.78 K/uL (0.11-0.59); Monocytes % (auto) 6.8 %; Neutrophils # (auto) 9.62 K/uL (1.40-6.50); Neutrophils % (auto) 84.3 %; Platelet Count 362 K/uL (130-400); RDW Coefficient of Variation 15.9 % (11.5-14.5); RDW Standard Deviation 52.2 fL (36.4-46.3); Red Blood Count 3.03 M/uL (4.70-6.10); White Blood Count 11.43 K/ul (4.8-10.8)
[2022-11-04 23:17] LABS: INR 1.3 (0.9-1.1); Prothrombin Time 13.4 Seconds (9.0-12.0)
--- NOTE | 2022-11-04 23:43 | Emergency Department Note ---
History of Present Illness General Chief complaint: Respiratory Problems Stated complaint: LOW SPO2/ALTERED MENTAL STATUS Time Seen by Provider: 11/04/22 22:52 History of Present Illness 72-year-old male presents from [facility] reportedly had a fever shortness of breath low pulse ox. Patient is a poor historian to his presentation but reportedly was transferred for evaluation for sepsis. He was reportedly given Tylenol prior to arrival. He has no complaints except for slight cough Home Medications Medication Instructions Recorded Confirmed Type diaper,brief,adult,disposable #120 ea 04/13/19 09/27/22 Rx (Briefs, Adult-Extra Large) pen needle, diabetic 32 gauge x #100 ea 04/25/19 09/27/22 Rx 5/32" (1st Tier Unifine Pentips) Diabetic Shoes #1 ea 04/27/21 09/27/22 Rx Extra Heavy Duty Wheelchair #1 ea 06/29/21 09/27/22 Rx lancets 33 gauge (BD Ultra Fine #100 ea 11/10/21 09/27/22 Rx Lancets) finasteride 5 mg tablet 5 mg PO DAILY #90 tabs 02/26/22 11/04/22 Rx pen needle, diabetic 32 gauge x #100 ea 03/04/22 09/27/22 Rx 5/32" (BD Sofy 2nd Gen Pen Needle) furosemide 20 mg tablet (Lasix) 40 mg PO DAILY #60 tabs 07/01/22 11/04/22 Rx allopurinol 300 mg tablet 300 mg PO DAILY #90 tabs 07/07/22 11/04/22 Rx losartan 100 mg tablet 100 mg PO DAILY #90 tabs 07/07/22 11/04/22 Rx tamsulosin 0.4 mg capsule 0.4 mg PO DAILY #180 caps 07/16/22 11/04/22 Rx Hinged knee brace #1 ea 08/15/22 09/27/22 Rx diaper,brief,adult,disposable #32 ea 08/15/22 09/27/22 Rx motor scooter #1 ea 08/15/22 09/27/22 Rx apixaban 5 mg tablet 5 mg PO BID #60 tabs 09/20/22 11/04/22 Rx aspirin 81 mg tablet,delayed 81 mg PO DAILY #30 tabs 09/20/22 11/04/22 Rx release Diabetic Shoes #1 ea 09/27/22 09/27/22 Rx dulaglutide 3 mg/0.5 mL 3 mg subcut WK 10/06/22 11/04/22 History subcutaneous pen injector ipratropium 20 mcg-albuterol 100 1 puff inhalation TID PRN 10/06/22 11/04/22 History mcg/actuation mist for inhalation BREATHING ISSUES (Combivent Respimat) gabapentin 300 mg capsule 600 mg PO HS 30 days #60 caps 10/11/22 11/04/22 Rx acetaminophen 325 mg tablet 650 mg PO Q4H PRN Pain 11/04/22 11/04/22 History (Tylenol) ammonium lactate 12 % lotion 1 applic topical BID 11/04/22 11/04/22 History atorvastatin 10 mg tablet 10 mg PO HS 11/04/22 11/04/22 History bisacodyl 10 mg rectal suppository [address] DAILY PRN Constipation 11/04/22 11/04/22 History docusate sodium 100 mg capsule 100 mg PO BID 11/04/22 11/04/22 History insulin aspart U-100 100 unit/mL 4 unit subcut TIDM 11/04/22 11/04/22 History subcutaneous solution (Novolog U-100 Insulin aspart) insulin glargine 100 unit/mL 15 unit subcut DAILY 11/04/22 11/04/22 History subcutaneous solution lidocaine 5 % topical patch 1 patch topical DAILY 11/04/22 11/04/22 History magnesium hydroxide 400 mg/5 mL 30 ml PO DAILY PRN Constipation 11/04/22 11/04/22 History oral suspension (Milk of Magnesia) nystatin 100,000 unit/gram topical 1 applic topical BID 11/04/22 11/04/22 History powder ondansetron HCl 4 mg tablet 4 mg PO Q4H PRN NAUSEA/VOMITING 11/04/22 11/04/22 History polyethylene glycol 3350 17 17 g PO QDL PRN Constipation 11/04/22 11/04/22 History gram/dose oral powder (Miralax) sennosides 8.6 mg tablet (Senokot) 8.6 mg PO QDL PRN Constipation 11/04/22 History tramadol 50 mg tablet 50 mg PO Q6H PRN Pain 11/04/22 11/04/22 History Allergies Allergy/AdvReac Type Severity Reaction Status Date / Time lisinopril AdvReac Intermediate Cough Verified 11/04/22 22:45 Past Med/Surg History Medical History Arthritis Atrial fibrillation (09/2022) BPH (benign prostatic hyperplasia) Chronic diastolic heart failure Chronic kidney disease, stage III (moderate) Chronic venous stasis dermatitis of both lower extremities Depression Diabetes mellitus type 2 with complications Gout H/O osteomyelitis Hearing deficit History of amputation of toe Onset: 23 December 2017 R great toe, R 2nd toe Hyperlipidemia Hypertension Mobitz type 1 second degree AV block Osteoarthritis Peripheral arterial disease Type 2 diabetes mellitus with diabetic neuropathy Urinary incontinence Venous insufficiency (chronic) (peripheral) Wheelchair bound Surgical History History of cataract surgery Right eye, 2016; L eye 2018 History of foot surgery tumor removal; left S/P arterial stent R leg, December 2017 S/P hip replacement 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) secondary to osteomyelitis Status post amputation of toe of left foot (07/06/21) L 2nd toe Status post amputation of toe of left foot (09/10/21) L 3rd adn 4th toes (d/t osteomyelitis) Status post amputation of toe of right foot R great toe, December 23, 2017 Total knee replacement status Right Family History Brother Cardiac disorder Aunt Colorectal cancer Sister Hypertension Breast cancer Denies family history of Ovarian cancer Prostate cancer Myocardial infarction Social History Smoking Status: Never smoker Second Hand Exposure: Yes; Hx Alcohol Use: No Hx Substance Use: No Preferred Language: Slovenian Communication Ability: Effective Visual Impairment: Limited Hearing Ability: Hard of Hearing 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 Beliefs That Will Affect Care: Spiritual marital status: Current Living Situation: Alone Current Living Situation Comment: 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, starts at 9am current occupational status: retired Feels Safe at Home: Yes Childhood Exposure to Second-Hand Smoke: Yes caffeine: No during the past year weight has: decreased > 10 lbs Dental Care, Regularly: No Physical Activity Frequency: Does not Exercise Physical Activity Frequency Comment: limited by physical condition Seatbelt Use: always Sunscreen Use: No Assistive Devices: Lift Chair and Wheelchair Review of Systems A total of 10 systems reviewed and were otherwise negative Constitutional: + fever and + body aches Respiratory: + cough Physical Exam Vital Signs Vital Signs - 24 hr 11/04/22 22:23 11/04/22 22:23 11/04/22 22:23 Temperature 38.3 C H Temperature Source Oral Pulse Rate 92 H Pulse Rate from SpO2 Sensor Respiratory Rate 21 Blood Pressure 99/52 L Blood Pressure Mean 67 Pulse Oximetry 84 L 84 L Oxygen Delivery Method Room Air Nasal Cannula Room Air Nasal Cannula Oxygen Flow Rate 4 Sepsis Recent Fever Within 48 Hours Yes Sepsis New/Unexplained Change in Mental Status Yes Sepsis Action Taken by Nursing No Action Required Oxygen Flow Rate - Titration 4 Pulse Oximetry Post Tiitration 97 11/04/22 22:24 11/04/22 22:46 11/04/22 23:00 Temperature Temperature Source Pulse Rate 93 H 86 Pulse Rate from SpO2 Sensor 91 H 92 H Respiratory Rate Blood Pressure Blood Pressure Mean Pulse Oximetry 97 96 94 Oxygen Delivery Method Nasal Cannula Oxygen Flow Rate 4 Sepsis Recent Fever Within 48 Hours Sepsis New/Unexplained Change in Mental Status Sepsis Action Taken by Nursing Oxygen Flow Rate - Titration Pulse Oximetry Post Tiitration 11/04/22 23:24 11/04/22 23:24 11/04/22 23:30 Temperature Temperature Source Pulse Rate 95 H Pulse Rate from SpO2 Sensor 99 H 93 H Respiratory Rate Blood Pressure 111/81 Blood Pressure Mean 91 Pulse Oximetry 92 92 Oxygen Delivery Method Nasal Cannula Oxygen Flow Rate 4 Sepsis Recent Fever Within 48 Hours Sepsis New/Unexplained Change in Mental Status Sepsis Action Taken by Nursing Oxygen Flow Rate - Titration Pulse Oximetry Post Tiitration 11/05/22 00:00 11/05/22 00:30 11/05/22 00:55 Temperature Temperature Source Pulse Rate 76 84 Pulse Rate from SpO2 Sensor 80 87 Respiratory Rate 30 H 19 Blood Pressure 100/48 L Blood Pressure Mean 65 Pulse Oximetry 95 92 Oxygen Delivery Method Oxygen Flow Rate Sepsis Recent Fever Within 48 Hours Sepsis New/Unexplained Change in Mental Status Sepsis Action Taken by Nursing Oxygen Flow Rate - Titration Pulse Oximetry Post Tiitration 11/05/22 00:55 11/04/22 23:22 Temperature Temperature Source Pulse Rate 85 Pulse Rate from SpO2 Sensor 83 Respiratory Rate 21 Blood Pressure Blood Pressure Mean Pulse Oximetry 91 92 Oxygen Delivery Method Nasal Cannula Oxygen Flow Rate 4 Sepsis Recent Fever Within 48 Hours Sepsis New/Unexplained Change in Mental Status Sepsis Action Taken by Nursing Oxygen Flow Rate - Titration Pulse Oximetry Post Tiitration GENERAL: Patient is awake alert in no acute distress patient is resting comfortably and showing no signs of anxiety EYES: The conjunctivae are clear. The pupils are round and reactive. EARS, NOSE, MOUTH AND THROAT: The nose is without any evidence of any deformity. Mucous membranes are moist. Tongue is midline. NECK: The neck is nontender and supple. RESPIRATORY: Rhonchi bilaterally CARDIOVASCULAR: Regular rate and rhythm noted there no murmurs rubs or gallops normal S1 normal S2. GASTROINTESTINAL: The abdomen is soft. Abdomen is nontender. Morbidly obese PELVIS: The Pelvis is stable. No tenderness to palpation is noted. BACK: No midline tenderness or or step-off noted range of motion in flexion extension as well as rotation no signs of muscle spasm noted MUSCULOSKELETAL/EXTREMITIES: There is no evidence of gross deformity full range of motion is noted in the hips and shoulders. SKIN: There is no obvious evidence of any rash. There are no petechiae, pallor or cyanosis noted. NEUROLOGIC: Patient is awake alert Course Reevaluation(s) Reevaluation #1: Patient was started on IV fluids was started on IV antibiotics, case was discussed with the hospitalist for admission. Patient is nonseptic shock Time: 01:56 Consultations Consultation #1: Case was discussed with the [facility] hospitalist, Dr. Fitzpatrick accepts the patient for admission Time: 01:57 Administered Medications Discontinued Medications Sodium Chloride (Nss 1000ml) 1,000 mls @ 999 mls/hr IV .Q1H1M [facility] Stop: 11/05/22 00:00 Last Infusion: 11/05/22 01:39 Dose: 0 mls/hr Documented By: Admin: 11/04/22 23:30 Dose: 999 mls/hr Documented By: CINDY Critical Care Time Critical Care Time: Yes Total Critical Care Time: 35 I have personally spent greater than35 minutes of critical care time in the direct management of this patient. This includes bedside care, interpretation of diagnostic studies, and testing, discussion with consultants, patient, and family members, and other required patient management activities. These minutes are in excess of all separately billable procedures. Medical Decision Making Medical Records Attestation: I reviewed the patient's medical records. Home Medications Current Medication List: was personally reviewed by me Laboratory Data Attestation: I reviewed the patient's lab results. 11/04/22 22:19 11/04/22 22:19 Lab Results 11/04/22 11/04/22 11/04/22 Range/Units 22:19 22:19 22:19 WBC 11.43 H (4.8-10.8) K/ul RBC 3.03 L (4.70-6.10) M/uL Hgb 8.6 L (14.0-18.0) g/dl Hct 27.4 L (42.0-52.0) % MCV 90.4 (80.0-100.0) fL MCH 28.4 (25.0-34.0) pg MCHC 31.4 L (32.0-36.0) g/dL RDW Std Deviation 52.2 H (36.4-46.3) fL RDW Coeff of Ana María 15.9 H (11.5-14.5) % Plt Count 362 (130-400) K/uL MPV 10.1 (9.4-12.4) fL Immature Gran % (Auto) 0.5 % Neut % (Auto) 84.3 % Lymph % (Auto) 7.4 % [place] % (Auto) 6.8 % Eos % (Auto) 0.3 % Baso % (Auto) 0.7 % Neut # (Auto) 9.62 H (1.40-6.50) K/uL Lymph # (Auto) 0.85 L (1.2-3.4) K/uL [place] # (Auto) 0.78 H (0.11-0.59) K/uL Eos # (Auto) 0.04 (0-0.50) K/uL Baso # (Auto) 0.08 (0-0.2) K/uL Immature Gran # (Auto) 0.06 (0.01-0.20) K/uL PT (9.0-12.0) Seconds INR (0.9-1.1) Sodium 136 (136-145) mmol/L Potassium 5.5 H (3.5-5.1) mmol/L Chloride 100 (98-107) mmol/L Carbon Dioxide 32 (21-32) mmol/L Anion Gap 5 (3-11) BUN 28 H (6-23) mg/dl Creatinine 1.63 H (0.6-1.4) mg/dl Est Cr Clr Drug Dosing Not Reportable Est GFR ( Amer) 47.4 ml/min Est GFR (Non-Af Amer) 40.9 ml/min BUN/Creatinine Ratio 17.0 (10-20) Glucose 104 H (70-99(Fasting)) mg/dl Lactate 0.6 (0.4-2.0) mmol/L Calcium 7.8 L (8.5-10.1) mg/dl Magnesium 1.6 L (1.7-2.4) mg/dl Total Bilirubin 0.7 (0.2-1.0) mg/dl Direct Bilirubin 0.3 H (0-0.2) mg/dl AST 14 (13-39) U/L ALT 8 (7-52) U/L Alkaline Phosphatase 148 H (34-104) U/L Troponin I High Sens 541.3 H* (0-20) pg/ml Total Protein 6.2 (6.0-8.3) gm/dl Albumin 2.5 L (3.4-5.0) gm/dl 11/04/22 Range/Units 22:19 WBC (4.8-10.8) K/ul RBC (4.70-6.10) M/uL Hgb (14.0-18.0) g/dl Hct (42.0-52.0) % MCV (80.0-100.0) fL MCH (25.0-34.0) pg MCHC (32.0-36.0) g/dL RDW Std Deviation (36.4-46.3) fL RDW Coeff of Ana María (11.5-14.5) % Plt Count (130-400) K/uL MPV (9.4-12.4) fL Immature Gran % (Auto) % Neut % (Auto) % Lymph % (Auto) % [place] % (Auto) % Eos % (Auto) % Baso % (Auto) % Neut # (Auto) (1.40-6.50) K/uL Lymph # (Auto) (1.2-3.4) K/uL [place] # (Auto) (0.11-0.59) K/uL Eos # (Auto) (0-0.50) K/uL Baso # (Auto) (0-0.2) K/uL Immature Gran # (Auto) (0.01-0.20) K/uL PT 13.4 H (9.0-12.0) Seconds INR 1.3 H (0.9-1.1) Sodium (136-145) mmol/L Potassium (3.5-5.1) mmol/L Chloride (98-107) mmol/L Carbon Dioxide (21-32) mmol/L Anion Gap (3-11) BUN (6-23) mg/dl Creatinine (0.6-1.4) mg/dl Est Cr Clr Drug Dosing Est GFR ( Amer) ml/min Est GFR (Non-Af Amer) ml/min BUN/Creatinine Ratio (10-20) Glucose (70-99(Fasting)) mg/dl Lactate (0.4-2.0) mmol/L Calcium (8.5-10.1) mg/dl Magnesium (1.7-2.4) mg/dl Total Bilirubin (0.2-1.0) mg/dl Direct Bilirubin (0-0.2) mg/dl AST (13-39) U/L ALT (7-52) U/L Alkaline Phosphatase (34-104) U/L Troponin I High Sens (0-20) pg/ml Total Protein (6.0-8.3) gm/dl Albumin (3.4-5.0) gm/dl Imaging Data Attestation: I personally reviewed and interpreted this imaging study as follows: My Impression: Chest x-ray interpreted by me cardiomegaly ECG Data Attestation: I personally reviewed and interpreted this ECG as follows: Additional Comments: EKG interpreted by me atrial fibrillation rate of [address]-T change no obvious ST segment elevation or depression normal axis, no prior initially for comparison MDM Narrative Medical decision making differential diagnosis includes sepsis, pneumonia, urinary tract infection, viral syndrome, electrolyte abnormality, urinary tract infection Plan is to check sepsis labs give IV fluids Nursing notes were reviewed by me and appreciated [facility] me Patient has an elevated troponin patient's heart score is moderate, patient's parents think CHF, patient also could have pneumonia could be septic however is nonseptic shock Patient will be admitted for further treatment due to elevated troponin and possible infectious etiology Impression & Plan SIRS (systemic inflammatory response syndrome), Elevated troponin Discharge Plan Visit Data Chief Complaint: Respiratory Problems Stated Complaint: LOW SPO2/ALTERED MENTAL STATUS ED Provider: Ben Jimenez Discharge Problem: SIRS (systemic inflammatory response syndrome), Elevated troponin Patient Disposition: Admitted As Inpatient Forms Stand Alone Forms: [facility] Prescriptions Prescriptions: No Action (DME) Briefs, Adult-Extra Large misc See Dose Instructions .ROUTE .MEDSUPPLY Qty: 120 12RF Dose Instruction: As directed Rx Instructions: please dispense adult XX large pullups max allowed (DME) Extra Heavy Duty Wheelchair See Rx Instructions .Route .MEDSUPPLY Qty: 1 0RF Rx Instructions: As directed finasteride 5 mg tablet 5 mg PO DAILY Qty: 90 1RF (DME) pen needle, diabetic [BD Sofy 2nd Gen Pen Needle] 32 gauge x 5/32" needle See Rx Instructions .Route Qty: 100 2RF Rx Instructions: INJECTING ONCE PER DAY furosemide [Lasix] 20 mg tablet 40 mg PO DAILY Qty: 60 5RF allopurinol 300 mg tablet 300 mg PO DAILY Qty: 90 1RF losartan 100 mg tablet 100 mg PO DAILY Qty: 90 1RF tamsulosin 0.4 mg capsule 0.4 mg PO DAILY Qty: 180 1RF Rx Instructions: PER MED LIST, SOMETIMES TAKES 1 TAB AT HS PRN URINARY ISSUES. (DME) pen needle, diabetic [1st Tier Unifine Pentips] 32 gauge x 5/32" needle See Dose Instructions .ROUTE .MEDSUPPLY Qty: 100 3RF Dose Instruction: As directed Rx Instructions: Injecting once daily. (DME) diaper,brief,adult,disposable Misc See Dose Instructions .ROUTE .MEDSUPPLY Qty: 32 11RF Dose Instruction: As directed Rx Instructions: XXXL Depends (tab style) (DME) Hinged knee brace XL See Rx Instructions .Route .MEDSUPPLY Qty: 1 0RF Rx Instructions: As directed ([place]) motor scooter See Rx Instructions .Route .MEDSUPPLY Qty: 1 0RF Rx Instructions: As directed (DME) Diabetic Shoes Misc See Rx Instructions .Route Qty: 1 0RF Rx Instructions: As directed apixaban 5 mg tablet 5 mg PO BID Qty: 60 2RF Rx Instructions: Per D/C instructions from -Cl 09/17/22 aspirin 81 mg tablet,delayed release (DR/EC) 81 mg PO DAILY Qty: 30 2RF (DME) lancets [BD Ultra Fine Lancets] 33 gauge misc See Rx Instructions .Route Qty: 100 5RF Rx Instructions: As directed. Testing BS BID (DME) Diabetic Shoes Misc See Rx Instructions .Route Qty: 1 0RF Rx Instructions: As directed sennosides [Senokot] 8.6 mg Tablet 8.6 mg PO QDL PRN (Reason: Constipation) acetaminophen [Tylenol] 325 mg Tablet 650 mg PO Q4H PRN (Reason: Pain) insulin glargine 100 unit/mL Solution 15 unit SUBCUT DAILY ammonium lactate 12 % Lotion 1 applic TOPICAL BID Rx Instructions: APPLY LOTION AND COVER WITH TUBI STRETCHER DRIER OPERATOR WHEN NEEDED. ondansetron HCl [Zofran] 4 mg Tablet 4 mg PO Q4H PRN (Reason: NAUSEA/VOMITING) tramadol 50 mg Tablet 50 mg PO Q6H PRN (Reason: Pain) magnesium hydroxide [Milk of Magnesia] 400 mg/5 mL Suspension 30 ml PO DAILY PRN (Reason: Constipation) insulin aspart U-100 [Novolog U-100 Insulin aspart] 100 unit/mL Solution 4 unit SUBCUT TIDM bisacodyl 10 mg Suppository [address] DAILY PRN (Reason: Constipation) lidocaine 5 % Adhesive Patch,Medicated 1 patch TOPICAL DAILY Rx Instructions: APPLY QAM, REMOVE AT HS. docusate sodium 100 mg Capsule 100 mg PO BID nystatin 100,000 unit/gram Powder 1 applic TOPICAL BID Rx Instructions: STARTED 10/28/22 APPLY TO SKIN FOLDS polyethylene glycol 3350 [Miralax] 17 gram/dose Powder 17 g PO QDL PRN (Reason: Constipation) atorvastatin 10 mg tablet 10 mg PO HS Combivent Respimat 20-100 mcg/actuation mist 1 puff INH TID PRN (Reason: BREATHING ISSUES) dulaglutide 3 mg/0.5 mL pen injector 3 mg subcut WK Rx Instructions: TAKES ON WEDNESDAYS; PT UNSURE OF DOSE, UNABLE TO VERIFY. gabapentin 300 mg Capsule 600 mg PO HS 30 Days Qty: 60 0RF Referrals Referrals: Barbara Cruz DO [Primary Care Provider] -
[2022-11-04 23:52] LABS: Troponin I High Sensitivity 541.3 pg/ml (0-20)
[2022-11-05 00:15] LABS: Anion Gap 5 (3-11); Blood Urea Nitrogen 28 mg/dl (6-23); Carbon Dioxide 32 mmol/L (21-32); Chloride 100 mmol/L (98-107); Potassium 5.5 mmol/L (3.5-5.1); Sodium 136 mmol/L (136-145)
[2022-11-05 00:16] LABS: Calcium 7.8 mg/dl (8.5-10.1); Est GFR (African American) 47.4 ml/min; Est GFR (Non-African American) 40.9 ml/min; Glucose 104 mg/dl (70-99(Fasting))
[2022-11-05 00:17] LABS: Alanine Aminotransferase 8 U/L (7-52); Albumin Level 2.5 gm/dl (3.4-5.0); Alkaline Phosphatase 148 U/L (34-104); Aspartate Aminotransferase 14 U/L (13-39); Bilirubin Direct 0.3 mg/dl (0-0.2); Bilirubin,Total 0.7 mg/dl (0.2-1.0); Magnesium 1.6 mg/dl (1.7-2.4); Total Protein 6.2 gm/dl (6.0-8.3)
[2022-11-05] MEDS ORDERED: Patient's HEIGHT &/or WEIGHT Needed SCH (01:00)
[2022-11-05] MEDS ORDERED: PIPERACILLIN/TAZOBACTAM 4.5 GM/120 ML BAG IV ONE (01:34)
[2022-11-05 01:49] LABS: Influenza A virus by PCR Negative (Neg); Influenza B virus by PCR Negative (Neg); RSV by PCR Negative (Neg)
[2022-11-05 01:57] LABS: SARS CoV2 RNA(COVID-19) Ceph POSITIVE (Negative)
--- NOTE | 2022-11-05 02:03 | History & Physical Report ---
Date of Service November 05, 2022 Assessment & Plan (1) COVID-19: Plan: 72-year-old male with multiple medical comorbidities presenting from [facility] with fever, cough, hypoxia. Found to be positive for COVID-19 infection. Admit to medical telemetry Maintain isolation precautions Check ferritin, CRP, BNP, VBG Dexamethasone 6 mg IV dailyfirst dose administered in the ER Maintain supplemental oxygen as needed for saturation goal of greater than 92% Secretion managementpatient seems to be having difficulty clearing his upper airway secretions. Suction as needed Guaifenesin 1200 mg p.o. twice daily Albuterol as needed Tylenol as needed for pain or fever Continue Zosyn for nowprocalcitonin = 0.12 -Unable to discuss initiating remdesivir with patient at this time. Family discussion in the morning Saturations fairly well-maintained on nasal cannula 1 patient is awake. However, they decline after he sleeps. Trial of oxygen is now. May consider high flow nasal cannula as well (2) Elevated troponin: Plan: No report of chest pain prior to arrival. Troponin elevated at 541.3. No acute ischemic changes present on EKG Continue telemetry monitoring Trend troponin Continue cardiac medications aspirin 81 mg p.o. daily, atorvastatin 10 mg p.o. nightly (3) Atrial fibrillation: Plan: Rate controlled, presently 78 bpm. Patient anticoagulated with apixaban 5 mg p.o. twice daily Continue apixaban 5 mg p.o. twice daily (4) Coronary artery disease: Plan: Patient with history of CAD. Elevated troponin today. Do not highly suspect ACS. Possible demand ischemia in setting of hypoxia, illness Telemetry monitoring Trend troponin Continue aspirin and atorvastatin as above (5) Chronic kidney disease, stage III (moderate): Plan: Elevation in BUN and creatinine from baseline, presently BUN = 28, creatinine is 1.63. Avoid nephrotoxic agents. We will hold losartan, decrease gabapentin to 300 mg p.o. nightly, hold Lasix Renal dosing were needed Monitor intake and output Repeat chemistry in the morning (6) Diabetes mellitus type 2 with complications: Plan: Chronic. Blood sugar = 104 at present. Last hemoglobin A1c = 8.7 on 10/07/2022. Patient is on insulin at home. Lantus 5 units twice daily with insulin sliding scale. Adjust as needed for goal blood sugar 1 10-1 40 (7) Gout: Plan: Chronic. Stable. Continue allopurinol (8) Hyperlipidemia: Plan: Chronic. Stable on atorvastatin Continue atorvastatin 10 mg p.o. nightly (9) Hypertension: Plan: Blood pressure borderline low in the ER We will hold losartan for now Continue to monitor History of Present Illness Chief Complaint: Fever, shortness of breath, hypoxia Primary Care Provider: Barbara Cruz DO Moreno Maynard is a 72-year-old male with multiple medical comorbidities to include atrial fibrillation, CKD 3, diabetes, hypertension, hyperlipidemia, CAD, prior CVA presenting from [facility] with report of fever, shortness of breath and hypoxia. Patient was hospitalized at [facility] from 09/28/2022 through 10/11/2022 after a fall. He was recommended to go to rehab however, was discharged home instead per his request. He was by his PCP 10/26/2022 after sustaining a fall in the shower and appeared very unwell, in pain and weak. He was seen in the ER later on 10/26/2022 and was discharged to [facility] rehab. Patient presents this evening from [facility] with fever, hypoxia, confusion, cough and weakness. Upon arrival, patient febrile at 38.3, blood pressure borderline low at 96/51, normal respiratory rate, saturating 87% on 4 L nasal cannula. Patient confused during my encounter. Shouting at times and other times quite somnolent. ER course: Dexamethasone 6 mg IV, Zosyn 4.5 g IV, normal saline x1 L Allergies Allergy/AdvReac Type Severity Reaction Status Date / Time lisinopril AdvReac Intermediate Cough Verified 11/04/22 22:45 Home Medications Medication Instructions Recorded Confirmed Type diaper,brief,adult,disposable #120 ea 04/13/19 09/27/22 Rx (Briefs, Adult-Extra Large) pen needle, diabetic 32 gauge x #100 ea 04/25/19 09/27/22 Rx 5/32" (1st Tier Unifine Pentips) Diabetic Shoes #1 ea 04/27/21 09/27/22 Rx Extra Heavy Duty Wheelchair #1 ea 06/29/21 09/27/22 Rx lancets 33 gauge (BD Ultra Fine #100 ea 11/10/21 09/27/22 Rx Lancets) finasteride 5 mg tablet 5 mg PO DAILY #90 tabs 02/26/22 11/04/22 Rx pen needle, diabetic 32 gauge x #100 ea 03/04/22 09/27/22 Rx 5/32" (BD Sofy 2nd Gen Pen Needle) furosemide 20 mg tablet (Lasix) 40 mg PO DAILY #60 tabs 07/01/22 11/04/22 Rx allopurinol 300 mg tablet 300 mg PO DAILY #90 tabs 07/07/22 11/04/22 Rx losartan 100 mg tablet 100 mg PO DAILY #90 tabs 07/07/22 11/04/22 Rx tamsulosin 0.4 mg capsule 0.4 mg PO DAILY #180 caps 07/16/22 11/04/22 Rx Hinged knee brace #1 ea 08/15/22 09/27/22 Rx diaper,brief,adult,disposable #32 ea 08/15/22 09/27/22 Rx motor scooter #1 ea 08/15/22 09/27/22 Rx apixaban 5 mg tablet 5 mg PO BID #60 tabs 09/20/22 11/04/22 Rx aspirin 81 mg tablet,delayed 81 mg PO DAILY #30 tabs 09/20/22 11/04/22 Rx release Diabetic Shoes #1 ea 09/27/22 09/27/22 Rx dulaglutide 3 mg/0.5 mL 3 mg subcut WK 10/06/22 11/04/22 History subcutaneous pen injector ipratropium 20 mcg-albuterol 100 1 puff inhalation TID PRN 10/06/22 11/04/22 History mcg/actuation mist for inhalation BREATHING ISSUES (Combivent Respimat) gabapentin 300 mg capsule 600 mg PO HS 30 days #60 caps 10/11/22 11/04/22 Rx acetaminophen 325 mg tablet 650 mg PO Q4H PRN Pain 11/04/22 11/04/22 History (Tylenol) ammonium lactate 12 % lotion 1 applic topical BID 11/04/22 11/04/22 History atorvastatin 10 mg tablet 10 mg PO HS 11/04/22 11/04/22 History bisacodyl 10 mg rectal suppository 10 mg WV DAILY PRN Constipation 11/04/22 11/04/22 History docusate sodium 100 mg capsule 100 mg PO BID 11/04/22 11/04/22 History insulin aspart U-100 100 unit/mL 4 unit subcut TIDM 11/04/22 11/04/22 History subcutaneous solution (Novolog U-100 Insulin aspart) insulin glargine 100 unit/mL 15 unit subcut DAILY 11/04/22 11/04/22 History subcutaneous solution lidocaine 5 % topical patch 1 patch topical DAILY 11/04/22 11/04/22 History magnesium hydroxide 400 mg/5 mL 30 ml PO DAILY PRN Constipation 11/04/22 11/04/22 History oral suspension (Milk of Magnesia) nystatin 100,000 unit/gram topical 1 applic topical BID 11/04/22 11/04/22 History powder ondansetron HCl 4 mg tablet 4 mg PO Q4H PRN NAUSEA/VOMITING 11/04/22 11/04/22 History polyethylene glycol 3350 17 17 g PO QDL PRN Constipation 11/04/22 11/04/22 History gram/dose oral powder (Miralax) sennosides 8.6 mg tablet (Senokot) 8.6 mg PO QDL PRN Constipation 11/04/22 11/04/22 History tramadol 50 mg tablet 50 mg PO Q6H PRN Pain 11/04/22 11/04/22 History Past Med/Surg History Medical History Arthritis Atrial fibrillation (09/2022) BPH (benign prostatic hyperplasia) Chronic diastolic heart failure Chronic kidney disease, stage III (moderate) Chronic venous stasis dermatitis of both lower extremities Depression Diabetes mellitus type 2 with complications Gout H/O osteomyelitis Hearing deficit History of amputation of toe Onset: 23 December 2017 R great toe, R 2nd toe Hyperlipidemia Hypertension Mobitz type 1 second degree AV block Osteoarthritis Peripheral arterial disease Type 2 diabetes mellitus with diabetic neuropathy Urinary incontinence Venous insufficiency (chronic) (peripheral) Wheelchair bound Surgical History History of cataract surgery Right eye, 2016; L eye 2018 History of foot surgery tumor removal; left S/P arterial stent R leg, December 2017 S/P hip replacement 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) secondary to osteomyelitis Status post amputation of toe of left foot (07/06/21) L 2nd toe Status post amputation of toe of left foot (09/10/21) L 3rd adn 4th toes (d/t osteomyelitis) Status post amputation of toe of right foot R great toe, December 23, 2017 Total knee replacement status Right Family History Brother Cardiac disorder Aunt Colorectal cancer Sister Hypertension Breast cancer Denies family history of Ovarian cancer Prostate cancer Myocardial infarction Social History Smoking Status: Never smoker Second Hand Exposure: Yes; Hx Alcohol Use: No Hx Substance Use: No Preferred Language: [place] Communication Ability: Effective Visual Impairment: Limited Hearing Ability: Hard of Hearing Cutting Machine Tender Required: No Beliefs That Will Affect Care: Spiritual marital status: Current Living Situation: Alone Current Living Situation Comment: 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, starts at 9am current occupational status: retired Feels Safe at Home: Yes Childhood Exposure to Second-Hand Smoke: Yes caffeine: No during the past year weight has: decreased > 10 lbs Dental Care, Regularly: No Physical Activity Frequency: Does not Exercise Physical Activity Frequency Comment: limited by physical condition Seatbelt Use: always Sunscreen Use: No Assistive Devices: Lift Chair and Wheelchair Review of Systems Review of Systems: Unobtainable due to cognitive status Physical Exam Physical Exam: General: patient ill in appearance, somnolent but arousable. Does not answer questions or participate with exam. Skin: warm, dry, redness to bilateral lower extremities with venous stasis changes, skin peeling. No bleeding or evidence of secondary infection. HEENT: NC/AT, PERRL, anicteric sclera, conjunctiva without injection, external ear normal to inspection and nontender, nares patent, moist mucus membranes, dentures in placelater removed by ER nursing, no oropharyngeal lesions, neck supple, trachea midline, no LAD, no thyromegaly, no JVD Heart: +S1/S2, irregularly irregular, no m/r/g Lungs: Coarse breath sounds bilaterally with upper airway secretions, diffuse end expiratory wheezing Abd: +BS, soft, NT/ND, no masses/organomegaly/ascites Ext: warm, 2+ pulses in UE/LE bilaterally, no clubbing/cyanosis or edema Neuro: Patient somnolent, arousable, not answering questions or following commands at present, will occasionally answer questions for nursing, moving all extremities with equal strength Results & Data Results & Data ([facility]) Vital Signs (Past 12 Hours) Vital Signs Temp Pulse Resp BP Pulse Ox O2 Del Method O2 Flow Rate 11/04/22 23:22 92 Nasal Cannula 4 11/05/22 00:55 85 21 91 11/05/22 00:55 100/48 L 11/05/22 00:30 84 19 92 11/05/22 00:00 76 30 H 95 11/04/22 23:30 92 Nasal Cannula 4 11/04/22 23:24 111/81 11/04/22 23:24 95 H 92 11/04/22 23:00 86 94 11/04/22 22:46 93 H 96 11/04/22 22:24 97 Nasal Cannula 4 11/04/22 22:23 84 L Room Air, Nasal Cannula 11/04/22 22:23 Nasal Cannula 4 11/04/22 22:23 38.3 C H 92 H 21 99/52 L 84 L Room Air Laboratory Results Laboratory Results WBC 11.43 K/ul (4.8-10.8) H 11/04/22 22:19 RBC 3.03 M/uL (4.70-6.10) L 11/04/22 22:19 Hgb 8.6 g/dl (14.0-18.0) L 11/04/22 22:19 Hct 27.4 % (42.0-52.0) L 11/04/22 22:19 MCV 90.4 fL (80.0-100.0) 11/04/22 22:19 MCH 28.4 pg (25.0-34.0) 11/04/22 22:19 MCHC 31.4 g/dL (32.0-36.0) L 11/04/22 22:19 RDW Std Deviation 52.2 fL (36.4-46.3) H 11/04/22 22:19 RDW Coeff of Ana María 15.9 % (11.5-14.5) H 11/04/22 22:19 Plt Count 362 K/uL (130-400) 11/04/22 22:19 MPV 10.1 fL (9.4-12.4) 11/04/22 22:19 Immature Gran % (Auto) 0.5 % 11/04/22 22:19 Neut % (Auto) 84.3 % 11/04/22 22:19 Lymph % (Auto) 7.4 % 11/04/22 22:19 Mckean % (Auto) 6.8 % 11/04/22 22:19 Eos % (Auto) 0.3 % 11/04/22 22:19 Baso % (Auto) 0.7 % 11/04/22 22:19 Neut # (Auto) 9.62 K/uL (1.40-6.50) H 11/04/22 22:19 Lymph # (Auto) 0.85 K/uL (1.2-3.4) L 11/04/22 22:19 Mckean # (Auto) 0.78 K/uL (0.11-0.59) H 11/04/22 22:19 Eos # (Auto) 0.04 K/uL (0-0.50) 11/04/22 22:19 Baso # (Auto) 0.08 K/uL (0-0.2) 11/04/22 22:19 Immature Gran # (Auto) 0.06 K/uL (0.01-0.20) 11/04/22 22:19 PT 13.4 Seconds (9.0-12.0) H 11/04/22 22:19 INR 1.3 (0.9-1.1) H 11/04/22 22:19 Sodium 136 mmol/L (136-145) 11/04/22 22:19 Potassium 5.5 mmol/L (3.5-5.1) H 11/04/22 22:19 Chloride 100 mmol/L (98-107) 11/04/22 22:19 Carbon Dioxide 32 mmol/L (21-32) 11/04/22 22:19 Anion Gap 5 (3-11) 11/04/22 22:19 BUN 28 mg/dl (6-23) H 11/04/22 22:19 Creatinine 1.63 mg/dl (0.6-1.4) H 11/04/22 22:19 Est Cr Clr Drug Dosing Not Reportable 11/04/22 22:19 Est GFR ( Amer) 47.4 ml/min 11/04/22 22:19 Est GFR (Non-Af Amer) 40.9 ml/min 11/04/22 22:19 BUN/Creatinine Ratio 17.0 (10-20) 11/04/22 22:19 Glucose 104 mg/dl (70-99(Fasting)) H 11/04/22 22:19 Lactate 0.6 mmol/L (0.4-2.0) 11/04/22 22:19 Calcium 7.8 mg/dl (8.5-10.1) L 11/04/22 22:19 Magnesium 1.6 mg/dl (1.7-2.4) L 11/04/22 22:19 Total Bilirubin 0.7 mg/dl (0.2-1.0) 11/04/22 22:19 Direct Bilirubin 0.3 mg/dl (0-0.2) H 11/04/22 22:19 AST 14 U/L (13-39) 11/04/22 22:19 ALT 8 U/L (7-52) 11/04/22 22:19 Alkaline Phosphatase 148 U/L (34-104) H 11/04/22 22:19 Troponin I High Sens 541.3 pg/ml (0-20) H* 11/04/22 22:19 Total Protein 6.2 gm/dl (6.0-8.3) 11/04/22 22:19 Albumin 2.5 gm/dl (3.4-5.0) L 11/04/22 22:19 Procalcitonin 0.12 ng/ml (0-0.5) 11/04/22 22:19 SARS-CoV-2 (PCR) POSITIVE (Negative) A* 11/05/22 00:20 Influenza Type A (PCR) Negative (Neg) 11/05/22 00:20 Influenza Type B (PCR) Negative (Neg) 11/05/22 00:20 RSV (RT-PCR) Negative (Neg) 11/05/22 00:20 Diagnostic Findings Chest x-ray per my interpretation appears to have widened mediastinum, cardiomegaly with blunting of costophrenic angles. Similar to prior study ECG Additional Comments: EKG with atrial fibrillation at 93 bpm, QRS = 114, QTc = 460, no acute ischemic changes, no change when compared with prior study Code Status & VTE Plan VTE Prophylaxis Plan VTE Prophylaxis will be ordered: Yes PG Care Time/CCT Total # of Minutes Spent Total Time Spent with Patient: Total time spent is greater than 50% in coordination of care (as documented) at patient's floor/unit and/or counseling patient: Coding Level of Care Code 18522 INT INP/OBS CARE MIN Diagnoses COVID-19 U07.1 Elevated troponin R77.8 Atrial fibrillation I48.91 Atrial fibrillation type: unspecified Coronary artery disease I25.10 Chronic kidney disease, stage III (moderate) N18.30 Chronic kidney disease stage 3 subtype: unspecified whether 3a or 3b Diabetes mellitus type 2 with complications E11.8 Gout M10.9 Hyperlipidemia E78.5 Hypertension I10 (1) Atrial fibrillation Atrial fibrillation type: unspecified Qualified Code(s): I48.91 - Unspecified atrial fibrillation (2) Chronic kidney disease, stage III (moderate) Chronic kidney disease stage 3 subtype: unspecified whether 3a or 3b Qualified Code(s): N18.30 - Chronic kidney disease, stage 3 unspecified
[2022-11-05] MEDS ORDERED: dexAMETHasone 6 MG in SYRINGE 0 ML IV ONE (02:30)
[2022-11-05] MEDS ORDERED: DEXTROSE 50% 50 ML SYRINGE IV PRN (03:39)
[2022-11-05] MEDS ORDERED: GLUCOSE 40% GEL 15 GM TUBE PO PRN (03:39)
[2022-11-05] MEDS ORDERED: bisacodyL 10 MG SUPP PR PRN (03:39)
[2022-11-05] MEDS ORDERED: POLYETHYLENE (MIRALAX) 17 GM PACK PO PRN (03:39)
[2022-11-05] MEDS ORDERED: ACETAMINOPHEN 325 MG TAB PO PRN (03:39)
[2022-11-05] MEDS ORDERED: CARBOHYDRATES FOR HYPOGLYCEMIA PO PRN (03:39)
[2022-11-05] MEDS ORDERED: IPRATROPIUM BROMIDE/ALBUTEROL respimat INH INH PRN (03:39)
[2022-11-05] MEDS ORDERED: ONDANSETRON INJ 2 MG/ML 2 ML VIAL IV PRN (03:39)
[2022-11-05] MEDS ORDERED: MAGNESIUM HYDROXIDE SUSP 30 ML UDC PO PRN (03:39)
[2022-11-05] MEDS ORDERED: GLUCAGON FOR INJ 1 MG VIAL SQ PRN (03:39)
[2022-11-05] MEDS ORDERED: GLUCOSE 10 TAB/TUBE PO PRN (03:39)
[2022-11-05 04:13] LABS: Base Excess VBG 1.5 mEq/L; HCO3 VBG 31 mmol/L; Oxygen Saturation VBG 79.8 %; PCO2 VBG 68 mmHg (38-50); PO2 VBG 48 mmHg; pH VBG 7.26 (7.36-7.41)
[2022-11-05] MEDS ORDERED: IPRATROPIUM BROMIDE HFA INHALER INH PRN (04:18)
[2022-11-05] MEDS ORDERED: ALBUTEROL HFA 8 GM INHALER INH PRN (04:18)
[2022-11-05 04:57] LABS: C Reactive Protein 9.44 mg/dl (0-0.5); Ferritin 203.7 ng/ml (8-388); Phosphorus 5.1 mg/dl (2.5-4.9); Troponin I High Sensitivity 1894.8 pg/ml (0-20)
[2022-11-05] MEDS: MAGNESIUM SULFATE / D5W 1 GM/100 ML BAG IV SCH ×2 (06:06→08:20)
[2022-11-05] MEDS: PIPERACILLIN/TAZOBACTAM 4.5 GM in DEXTROSE 5% 100 ML IV SCH ×3 (07:07→21:44)
--- NOTE | 2022-11-05 07:25 | XRay Report ---
XR chest 1V portable CLINICAL HISTORY: Sepsis TECHNIQUE: Single frontal radiograph of the chest was obtained. Comparison: Comparison is made to chest radiograph 10/26/2022 FINDINGS: No lines and tubes are seen. Cardiomegaly is noted. The lungs are clear. No evidence of pleural effus ion or pneumothorax. IMPRESSION: No acute chest disease. Cardiomegaly is noted. ACT 112: Negative or not required by law. Electronically signed by: Kody Melendez M.D. 11/05/2022 7:24 AM
[2022-11-05] MEDS: INSULIN ASPART PER UNIT CHARGE SC SCH ×4 (08:44→21:10)
[2022-11-05] MEDS ORDERED: LANTUS PER UNIT CHARGE SQ SCH (09:00)
[2022-11-05] MEDS ORDERED: APIXABAN 5 MG TABLET PO SCH (09:00)
[2022-11-05] MEDS: ASPIRIN 81 MG ECTAB PO SCH (09:04)
[2022-11-05] MEDS: DOCUSATE SODIUM 100 MG CAP PO SCH ×2 (09:04→21:13)
[2022-11-05] MEDS: FINASTERIDE 5 MG TAB PO SCH (09:04)
[2022-11-05] MEDS: AMMONIUM LACTATE 12% LOTION 225 GM BTL EXT SCH ×2 (09:04→21:13)
[2022-11-05] MEDS: NYSTATIN POWDER 15GM BTL EXT SCH ×2 (09:05→21:13)
[2022-11-05] MEDS: guaiFENesin 600 MG TABCR PO SCH ×2 (09:05→21:13)
[2022-11-05] MEDS: TAMSULOSIN HCL 0.4 MG CAP PO SCH (09:05)
[2022-11-05] MEDS: LIDOCAINE 5% 1 PATCH TD SCH (09:09)
[2022-11-05] MEDS: allopurinoL 300 MG TAB PO SCH (09:22)
--- NOTE | 2022-11-05 10:48 | XCELERA ---
[id number]
[2022-11-05] MEDS: dexAMETHasone 6 MG in SYRINGE 0 ML IV SCH (11:24)
[2022-11-05] MEDS ORDERED: PIPERACILLIN/TAZOBACTAM 4.5 GM/120ML D5W IV ONE (14:27)
[2022-11-05] MEDS ORDERED: CLOPIDOGREL BISULFATE 300 MG TAB PO STA (14:40)
[2022-11-05] MEDS ORDERED: REMDESIVIR 200 MG in SODIUM CHLORIDE 0.9% 210 ML IV ONE (15:00)
[2022-11-05] MEDS ORDERED: Heparin IV Adult Wt-Based Standard *NO* Bolus Protocol IV SCH (15:00)
[2022-11-05 15:47] LABS: Partial Thromboplastin Ratio 1.4; Partial Thromboplastin Time 37.8 Seconds (21.0-31.0)
--- NOTE | 2022-11-05 17:53 | Electrocardiogram Report ---
Test Reason : Blood Pressure : / mmHG Vent. Rate : 045 BPM Atrial Rate : 068 BPM P-R Int : 000 ms QRS Dur : 106 ms QT Int : 530 ms P-R-T Axes : 000 015 124 degrees QTc Int : 458 ms Sinus rhythm with 2nd degree A-V block (Mobitz I) Low voltage QRS Abnormal ECG When compared with ECG of 04-NOV-2022 22:07, Nonspecific T wave abnormality now evident in Anterior leads Confirmed by Stephen Cash ([id number]) on 11/05/2022 5:52:41 PM Referred By: REFERRED SELF Confirmed By:Noah Cash
[2022-11-05] MEDS ORDERED: FUROSEMIDE 40 MG/4 ML VIAL IV ONE (18:35)
[2022-11-05] MEDS ORDERED: OPTIRAY 320 125ml IV ONE (19:54)
--- NOTE | 2022-11-05 20:25 | CT Scan Report ---
CT ANGIOGRAPHY OF THE CHEST, PULMONARY EMBOLUS PROTOCOL CLINICAL HISTORY: Shortness of breath. Covid. Evaluate for pulmonary embolus. COMPARISON STUDY: Chest radiograph November 04, 2022. TECHNIQUE: Following IV administration of 113 mL of Optiray, helical axial images of the chest were o btained utilizing the pulmonary embolus protocol. Maximal intensity projections and sagittal and cor onal reformats were viewed on an independent 3D workstation. IV contrast was administered without co mplication. Automated exposure control was utilized for the study. A dose lowering technique was ut ilized adhering to the principles of ALARA. CT DOSE: 761.39 mGy.cm FINDINGS: No central or lobar pulmonary emboli are identified. The segmental and subsegmental pulmon samy arteries, particularly within the lower lobes are suboptimally assessed due to mixing artifact. E xam is also compromised by body wall contacting the gantry with resultant artifact. There is moderate cardiomegaly and coronary artery calcification. A small pericardial effusion is noted. No thoracic l ymphadenopathy is present. Small bilateral pleural effusions. No pneumothorax. Left lower lobe volume loss with subpleural opacity favors atelectasis. Scattered nodular opacities within the right lung m easure up to 1.1 cm. Additional subpleural airspace opacities are present within the right upper lobe . No acute fractures within the bony thorax are noted. IVC and hepatic veins are distended with reflu x of contrast. There is probable hepatic steatosis. IMPRESSION: 1. No central or lobar pulmonary emboli. Near nondiagnostic evaluation of the lower lobe segmental an d subsegmental pulmonary arteries due to mixing artifact. 2. Moderate cardiomegaly and coronary artery calcification. Small pericardial effusion. 3. Small bilateral pleural effusions. Left lower lobe airspace opacity following loss which favors at electasis. 4. Scattered small nodular airspace opacities within the lungs which favor an infectious process. A f ollow up chest CT in 3 months to ensure resolution is recommended. ACT 112: Negative or not required by law. Electronically signed by: Delmer Schultz M.D. 11/05/2022 8:23 PM
[2022-11-05] MEDS: HEPARIN SODIUM/DEXTROSE 25,000 UNITS/500 ML BAG IV SCH (21:09)
[2022-11-05] MEDS: ATORVASTATIN 10 MG TAB PO SCH (21:13)
[2022-11-05] MEDS: GABAPENTIN 300 MG CAP PO SCH (21:13)
[2022-11-06] MEDS ORDERED: INSULIN ASPART PER UNIT CHARGE SQ ONE (00:15)
[2022-11-06 04:10] LABS: Partial Thromboplastin Ratio 4.4
[2022-11-06 04:15] LABS: Partial Thromboplastin Time 119.7 Seconds (21.0-31.0)
[2022-11-06] MEDS: PIPERACILLIN/TAZOBACTAM 4.5 GM in DEXTROSE 5% 100 ML IV SCH ×3 (05:23→21:46)
[2022-11-06 07:33] LABS: Hemoglobin 9.6 g/dl (14.0-18.0); Mean Corpuscular Hemoglobin 28.2 pg (25.0-34.0); Mean Corpuscular Volume 94.1 fL (80.0-100.0); Mean Platelet Volume 10.1 fL (9.4-12.4); Platelet Count 409 K/uL (130-400); RDW Coefficient of Variation 15.4 % (11.5-14.5); RDW Standard Deviation 52.8 fL (36.4-46.3); White Blood Count 18.46 K/ul (4.8-10.8)
[2022-11-06 07:54] LABS: Albumin Level 2.6 gm/dl (3.4-5.0); Bilirubin Direct 0.1 mg/dl (0-0.2); Bilirubin,Total 0.5 mg/dl (0.2-1.0); Calcium 7.7 mg/dl (8.5-10.1)
[2022-11-06 08:00] LABS: Albumin Globulin Ratio 0.7 (0.9-2); BUN Creatinine Ratio 21.2 (10-20); Creatinine Clr Calc Pharmacy 38.8 ml/min; D Dimer 1350 ug/L FEU (0-500); Est GFR (African American) 31.9 ml/min; Est GFR (Non-African American) 27.5 ml/min; Globulin 3.9 gm/dl (2.5-4.0); Total Protein 6.5 gm/dl (6.0-8.3)
[2022-11-06] MEDS: FINASTERIDE 5 MG TAB PO SCH (08:11)
[2022-11-06] MEDS: DOCUSATE SODIUM 100 MG CAP PO SCH ×2 (08:11→20:02)
[2022-11-06] MEDS: ASPIRIN 81 MG ECTAB PO SCH (08:11)
[2022-11-06] MEDS: AMMONIUM LACTATE 12% LOTION 225 GM BTL EXT SCH ×2 (08:11→20:02)
[2022-11-06] MEDS: NYSTATIN POWDER 15GM BTL EXT SCH ×2 (08:12→20:02)
[2022-11-06] MEDS: guaiFENesin 600 MG TABCR PO SCH ×2 (08:12→21:13)
[2022-11-06] MEDS: TAMSULOSIN HCL 0.4 MG CAP PO SCH (08:12)
[2022-11-06] MEDS: allopurinoL 300 MG TAB PO SCH (08:12)
[2022-11-06] MEDS: LIDOCAINE 5% 1 PATCH TD SCH (08:12)
[2022-11-06] MEDS: INSULIN ASPART PER UNIT CHARGE SC SCH ×4 (08:29→21:10)
--- NOTE | 2022-11-06 08:41 | Pulmonary Consultation ---
Date of Consultation November 06, 2022 Assessment & Plan (1) NSTEMI (non-ST elevated myocardial infarction): It appears that the patient had a significant NSTEMI on admission with elevated troponins, ischemic changes on EKG and wall motion abnormality noted on echo. I discussed with Dr. Cash at bedside who does not feel that any specific interventions are required at this time as the patient is hemodynamically stable and has minimal cardiac or respiratory symptoms at this time. (2) Hypoxemia: Chest CTA personally reviewed. Small bilateral effusions noted. Bilateral atelectasis, left greater than right. No signs of viral pneumonia. Subcentimeter pulmonary nodules seen and recommend follow-up CT in 3 to 4 months. D-dimer elevated likely secondary to NSTEMI. Pro-Pb unremarkable. Afebrile. Leukocytosis secondary to demargination from systemic corticosteroids. No clear signs of bacterial pneumonia at this time. Suspect hypoxemia secondary to NSTEMI and atelectasis. Cardiology consult as above. Patient is very reluctant to use of MetaNeb and this was discontinued. Continue hypertonic saline nebs if patient is willing and incentive spirometry. Recommend outpatient polysomnography to evaluate for sleep disordered breathing. (3) Atelectasis: Hypertonic saline and incentive spirometry as above. (4) Bradycardia: Possibly exacerbated secondary to remdesivir. Remdesivir discontinued. (5) SARS-CoV-2 positive: Incidental finding. Possible mild URI secondary to COVID resulting in fever at [facility]. Patient does not have COVID viral pneumonia. IV dexamethasone and remdesivir discontinued. Plan No further input at this time. Thank you for the consultation. Please call with questions. History of Present Illness Reason for Consultation: "COVID , hypoxic on 15 liter toci ?" Attending Physician: César Beverly MD History of Present Illness 72-year-old male with a past medical history of morbid obesity, poor mobility, conduction abnormalities, diastolic heart failure, chronic venous stasis dermatitis, CKD stage III and diabetes mellitus type 2 who presented to the hospital from rehab due to concerns of sepsis. Apparently he had a low-grade fever and rehab. He was put on high flow oxygen in the ER and started on broad- spectrum antibiotics. He was also started on dexamethasone and remdesivir since he was found to be positive for COVID-19 on testing. He is now down to 3 L of oxygen via nasal cannula. He denies any shortness of breath or cough at this time. He is adamant that he does not have pneumonia. He says his biggest issue is his feet and the inability to walk. He is overall frustrated with his care and generally does not want to answer most of my questions. It has been documented in the past that he is a "poor historian". On admission he was found to have elevated troponins, nonspecific ST segment changes on EKG and septal wall motion abnormalities on echo. I consult cardiology and spoke to Dr. Cash. Patient is currently on heparin. It is not felt that he needs any urgent cardiac intervention at this time as he is hemodynamically stable and his oxygen requirements are improving. A CT of his chest revealed bibasilar atelectasis. No groundglass opacities noted. D-dimer was elevated on admission. Allergies Allergy/AdvReac Type Severity Reaction Status Date / Time lisinopril AdvReac Intermediate Cough Verified 11/04/22 22:45 Home Medications Medication Instructions Recorded Confirmed Type diaper,brief,adult,disposable #120 ea 04/13/19 09/27/22 Rx (Briefs, Adult-Extra Large) pen needle, diabetic 32 gauge x #100 ea 04/25/19 09/27/22 Rx 5/32" (1st Tier Unifine Pentips) Diabetic Shoes #1 ea 04/27/21 09/27/22 Rx Extra Heavy Duty Wheelchair #1 ea 06/29/21 09/27/22 Rx lancets 33 gauge (BD Ultra Fine #100 ea 11/10/21 09/27/22 Rx Lancets) finasteride 5 mg tablet 5 mg PO DAILY #90 tabs 02/26/22 11/04/22 Rx pen needle, diabetic 32 gauge x #100 ea 03/04/22 09/27/22 Rx 5/32" (BD Sofy 2nd Gen Pen Needle) furosemide 20 mg tablet (Lasix) 40 mg PO DAILY #60 tabs 07/01/22 11/04/22 Rx allopurinol 300 mg tablet 300 mg PO DAILY #90 tabs 07/07/22 11/04/22 Rx losartan 100 mg tablet 100 mg PO DAILY #90 tabs 07/07/22 11/04/22 Rx tamsulosin 0.4 mg capsule 0.4 mg PO DAILY #180 caps 07/16/22 11/04/22 Rx Hinged knee brace #1 ea 08/15/22 09/27/22 Rx diaper,brief,adult,disposable #32 ea 08/15/22 09/27/22 Rx motor scooter #1 ea 08/15/22 09/27/22 Rx apixaban 5 mg tablet 5 mg PO BID #60 tabs 09/20/22 11/04/22 Rx aspirin 81 mg tablet,delayed 81 mg PO DAILY #30 tabs 09/20/22 11/04/22 Rx release Diabetic Shoes #1 ea 09/27/22 09/27/22 Rx dulaglutide 3 mg/0.5 mL 3 mg subcut WK 10/06/22 11/04/22 History subcutaneous pen injector ipratropium 20 mcg-albuterol 100 1 puff inhalation TID PRN 10/06/22 11/04/22 History mcg/actuation mist for inhalation BREATHING ISSUES (Combivent Respimat) gabapentin 300 mg capsule 600 mg PO HS 30 days #60 caps 10/11/22 11/04/22 Rx acetaminophen 325 mg tablet 650 mg PO Q4H PRN Pain 11/04/22 11/04/22 History (Tylenol) ammonium lactate 12 % lotion 1 applic topical BID 11/04/22 11/04/22 History atorvastatin 10 mg tablet 10 mg PO HS 11/04/22 11/04/22 History bisacodyl 10 mg rectal suppository 10 mg ME DAILY PRN Constipation 11/04/22 11/04/22 History docusate sodium 100 mg capsule 100 mg PO BID 11/04/22 11/04/22 History insulin aspart U-100 100 unit/mL 4 unit subcut TIDM 11/04/22 11/04/22 History subcutaneous solution (Novolog U-100 Insulin aspart) insulin glargine 100 unit/mL 15 unit subcut DAILY 11/04/22 11/04/22 History subcutaneous solution lidocaine 5 % topical patch 1 patch topical DAILY 11/04/22 11/04/22 History magnesium hydroxide 400 mg/5 mL 30 ml PO DAILY PRN Constipation 11/04/22 11/04/22 History oral suspension (Milk of Magnesia) nystatin 100,000 unit/gram topical 1 applic topical BID 11/04/22 11/04/22 History powder ondansetron HCl 4 mg tablet 4 mg PO Q4H PRN NAUSEA/VOMITING 11/04/22 11/04/22 History polyethylene glycol 3350 17 17 g PO QDL PRN Constipation 11/04/22 11/04/22 History gram/dose oral powder (Miralax) sennosides 8.6 mg tablet (Senokot) 8.6 mg PO QDL PRN Constipation 11/04/22 11/04/22 History tramadol 50 mg tablet 50 mg PO Q6H PRN Pain 11/04/22 11/04/22 History Patient History Medical History (Updated 11/06/22 @ 11:19 by Olaf Davis MD) Arthritis Atelectasis Atrial fibrillation (09/2022) BPH (benign prostatic hyperplasia) Bradycardia Chronic diastolic heart failure Chronic kidney disease, stage III (moderate) Chronic venous stasis dermatitis of both lower extremities Depression Diabetes mellitus type 2 with complications Gout H/O osteomyelitis Hearing deficit History of amputation of toe Onset: 23 December 2017 R great toe, R 2nd toe Hyperlipidemia Hypertension Hypoxemia Mobitz type 1 second degree AV block NSTEMI (non-ST elevated myocardial infarction) Osteoarthritis Peripheral arterial disease SARS-CoV-2 positive Type 2 diabetes mellitus with diabetic neuropathy Urinary incontinence Venous insufficiency (chronic) (peripheral) Wheelchair bound Surgical History History of cataract surgery Right eye, 2016; L eye 2018 History of foot surgery tumor removal; left S/P arterial stent R leg, December 2017 S/P hip replacement 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) secondary to osteomyelitis Status post amputation of toe of left foot (07/06/21) L 2nd toe Status post amputation of toe of left foot (09/10/21) L 3rd adn 4th toes (d/t osteomyelitis) Status post amputation of toe of right foot R great toe, December 23, 2017 Total knee replacement status Right Family History Brother Cardiac disorder Aunt Colorectal cancer Sister Hypertension Breast cancer Denies family history of Ovarian cancer Prostate cancer Myocardial infarction Social History Smoking Status: Never smoker Second Hand Exposure: Yes; Hx Alcohol Use: No Hx Substance Use: No Preferred Language: Turkish Communication Ability: Effective Visual Impairment: Limited Hearing Ability: Hard of Hearing 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 Beliefs That Will Affect Care: Spiritual marital status: Current Living Situation: Alone Current Living Situation Comment: 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, starts at 9am current occupational status: retired Feels Safe at Home: Yes Childhood Exposure to Second-Hand Smoke: Yes caffeine: No during the past year weight has: decreased > 10 lbs Dental Care, Regularly: No Physical Activity Frequency: Does not Exercise Physical Activity Frequency Comment: limited by physical condition Seatbelt Use: always Sunscreen Use: No Assistive Devices: Lift Chair and Wheelchair Review of Systems Review of Systems: All systems reviewed & are unremarkable except as noted in HPI & below Physical Exam 2 Physical Exam: Constitutional: Patient does not appear to be in any significant respiratory distress. Low-flow oxygen in place via nasal cannula. Eyes: Pupils are equal round and reactive to light. Conjunctivae are normal. Anicteric sclera. Ears nose, mouth and throat: Deferred. Neck: Trachea is midline. Visual inspection is normal. Respiratory: Diminished on the anterior chest wall. Patient refused to sit up or roll to his side for me to listen to the posterior chest. Cardiovascular: Regular rate and rhythm. No murmurs. Significant pitting edema in the lower extremities. Gastrointestinal: Normal bowel sounds, soft, nontender and nondistended. No hepatosplenomegaly noted. Musculoskeletal: Venous stasis changes noted in the lower extremities with missing toes on the left and several amputations noted on the right. Skin: No rashes, warm dry and intact. Neurologic: No obvious focal neurological deficits seen. Psychiatric: Alert, but agitated and refusing to answer most questions. Results & Data Results & Data ([facility]) Vital Signs (Past 12 Hours) Vital Signs Temp Pulse Pulse Resp BP BP Pulse Ox 11/06/22 08:09 55 L 19 122/58 L 98 11/06/22 05:42 36.4 C L 53 L 16 114/49 L 97 11/06/22 02:24 56 L 16 105/66 97 11/06/22 01:27 97 11/06/22 00:03 36.4 C L 48 L 16 91/73 L 98 11/05/22 22:06 52 L 11/05/22 22:36 11/05/22 22:02 36.4 C L 49 L 18 103/47 L 98 11/05/22 21:23 36.4 C L 45 L 16 92/59 L 100 O2 Del Method O2 Flow Rate 11/06/22 08:09 High Flow Nasal Cannula 5 11/06/22 05:42 High Flow Nasal Cannula 5 11/06/22 02:24 High Flow Nasal Cannula 6 11/06/22 01:27 High Flow Nasal Cannula 6 11/06/22 00:03 High Flow Nasal Cannula 7 11/05/22 22:06 11/05/22 22:36 High Flow Nasal Cannula 8 11/05/22 22:02 High Flow Nasal Cannula 8 11/05/22 21:23 High Flow Nasal Cannula 8 PG Care Time/CCT Total # of Minutes Spent Total Time Spent with Patient: Total time spent is greater than 50% in coordination of care (as documented) at patient's floor/unit and/or counseling patient: Coding Level of Care Code 32338 INT INP/OBS CARE 3/75MIN Diagnoses NSTEMI (non-ST elevated myocardial infarction) I21.4 Hypoxemia R09.02 Atelectasis J98.11 Bradycardia R00.1 SARS-CoV-2 positive U07.1
[2022-11-06] MEDS ORDERED: LANTUS PER UNIT CHARGE SQ SCH (09:00)
[2022-11-06] MEDS: dexAMETHasone 6 MG in SYRINGE 0 ML IV SCH (10:14)
[2022-11-06] MEDS ORDERED: REMDESIVIR 100 MG in SODIUM CHLORIDE 0.9% 230 ML IV SCH (12:00)
--- NOTE | 2022-11-06 12:32 | Cardiology Consultation ---
Date of Consultation November 06, 2022 Assessment & Plan (1) Atrial fibrillation: (2) Chronic diastolic heart failure: (3) Coronary artery disease: (4) History of CVA (cerebrovascular accident): (5) Mobitz type 1 second degree AV block: Plan 1. Atrial fibrillation: This is by report. I do not believe there is definitive documentation of atrial fibrillation. Anticoagulation was started at an outside facility. He has been maintained on Eliquis as an outpatient. Systemic anticoagulation switch to heparin. We can debate the utility of restarting Eliquis at some point. 2. Coronary disease: Presumed. By report he had a abnormal perfusion study performed 2012 suggestive of an anteroapical infarct. He also had a regional wall motion abnormality on his serial echocardiography. He presented with elevated cardiac biomarkers and likely has an element of demand ischemia. I think would be reasonable to continue systemic anticoagulation and aspirin in the short term. No symptoms suggestive of an acute coronary syndrome. Given his limited mobility, absence of symptoms and preserved LV function, do not think an aggressive evaluation is required at this time. 3. Heart failure with preserved ejection fraction: Known to have stage II diastolic dysfunction. 4. Mobitz 1 av block: He has a history of Mobitz 1 av block. I reviewed his records and telemetry. No higher degree block noted 5. Bradycardia:Related to his underlying conduction disease. He had 1:1 AV c onduction with a heart rate of 93 BPM at the time of admission suggesting his heart rate (and AV conduction) is subject to normal changes in adrenergic tone. Antiretrovirals can cause bradycardia and these have been discontinued. No overt symptoms. Given his very sedentary state, I don't think this requires further evaluation in the absence of new symptoms or worsening AV conduction. 6. Elevated troponin: Timing of elevations and gradual resolution suggests the injury occurred just prior to admission. He has had elevations before and certainly has coronary disease, possibly severe. The most likely mechanism for his elevations is still demand ischemia in the setting of mild hypotension, hypoxia and fever. As such, I think there is limited benefit in any coronary evaluation at this point, especially in light of normal LV systolic function, poor mobility and renal dysfunction. I would consider continuing hepatin for another 24 hours and then considering a switch back to Eliquis (presuming he really has AF). Maintain good oxygenation, avoid hyper/hypotension and tachycardia. History of Present Illness Reason for Consultation: Bradycardia, elevated troponin Requesting Physician: Ryan Attending Physician: César Beverly MD History of Present Illness The patient is a 72-year-old gentleman with a history of a cerebrovascular accident, hypertension, heart failure with preserved ejection fraction, morbid obesity, diabetes mellitus with associated complications and peripheral vascular disease status post multiple toe amputations. He also suffers from chronic venous stasis ulcers and lower extremity edema. The patient was evaluated at [facility] on 09/13/2022 for symptoms of weakness. He was advised to be admitted to the hospital but decided to go home instead. EKG obtained at that evaluation suggested atrial fibrillation. Patient returned to the same facility 2 days later with persistent symptoms and was admitted to the hospital. He was diagnosed with congestive heart failure, lower extremity infection, atrial fibrillation and non ST-elevation myocardial infarction. He appears to have undergone a diuresis and antibiotic administration. He was advised to go to a facility for rehabilitation given mobility issues and concerns over falls but he elected to go home. He recently suffered another fall and was discharged to [facility] for rehab. He was noted to be febrile and confused and sent for an evaluation. COVID testing was positive. The patient has not been ambulatory for several years. He generally is mobile in a wheelchair. He is able to transfer from his lift chair to a a wheelchair most days. However, today he apparently misjudged distance, became unstable and fell. He contacted EMS for assistance and was brought to the hospital for evaluation. Since admission he has had some bradycardia. Also noted to have elevated cardiac biomarkers. The patient was upset about admission to the hospital. He does not recall any specific symptoms and cannot recall why he was sent here. He does complain of buttock pain. Worse with coughing. He denies any associated dizziness or lightheadedness. He cannot recall any syncopal episodes. He has been aware of palpitations. He denies any symptoms of chest pain or breathing difficulty. He sleeps upright in a lift chair. He states he does not sleep in a reclined position due to back pain. He has persistent lower extremity edema but has difficulty feeling his legs. He denied pain in his lower extremities. Allergies Allergy/AdvReac Type Severity Reaction Status Date / Time lisinopril AdvReac Intermediate Cough Verified 11/04/22 22:45 Home Medications Medication Instructions Recorded Confirmed Type diaper,brief,adult,disposable #120 ea 04/13/19 09/27/22 Rx (Briefs, Adult-Extra Large) pen needle, diabetic 32 gauge x #100 ea 04/25/19 09/27/22 Rx 5/32" (1st Tier Unifine Pentips) Diabetic Shoes #1 ea 04/27/21 09/27/22 Rx Extra Heavy Duty Wheelchair #1 ea 06/29/21 09/27/22 Rx lancets 33 gauge (BD Ultra Fine #100 ea 11/10/21 09/27/22 Rx Lancets) finasteride 5 mg tablet 5 mg PO DAILY #90 tabs 02/26/22 11/04/22 Rx pen needle, diabetic 32 gauge x #100 ea 03/04/22 09/27/22 Rx 5/32" (BD Soyf 2nd Gen Pen Needle) furosemide 20 mg tablet (Lasix) 40 mg PO DAILY #60 tabs 07/01/22 11/04/22 Rx allopurinol 300 mg tablet 300 mg PO DAILY #90 tabs 07/07/22 11/04/22 Rx losartan 100 mg tablet 100 mg PO DAILY #90 tabs 07/07/22 11/04/22 Rx tamsulosin 0.4 mg capsule 0.4 mg PO DAILY #180 caps 07/16/22 11/04/22 Rx Hinged knee brace #1 ea 08/15/22 09/27/22 Rx diaper,brief,adult,disposable #32 ea 08/15/22 09/27/22 Rx motor scooter #1 ea 08/15/22 09/27/22 Rx apixaban 5 mg tablet 5 mg PO BID #60 tabs 09/20/22 11/04/22 Rx aspirin 81 mg tablet,delayed 81 mg PO DAILY #30 tabs 09/20/22 11/04/22 Rx release Diabetic Shoes #1 ea 09/27/22 09/27/22 Rx dulaglutide 3 mg/0.5 mL 3 mg subcut WK 10/06/22 11/04/22 History subcutaneous pen injector ipratropium 20 mcg-albuterol 100 1 puff inhalation TID PRN 10/06/22 11/04/22 History mcg/actuation mist for inhalation BREATHING ISSUES (Combivent Respimat) gabapentin 300 mg capsule 600 mg PO HS 30 days #60 caps 10/11/22 11/04/22 Rx acetaminophen 325 mg tablet 650 mg PO Q4H PRN Pain 11/04/22 11/04/22 History (Tylenol) ammonium lactate 12 % lotion 1 applic topical BID 11/04/22 11/04/22 History atorvastatin 10 mg tablet 10 mg PO HS 11/04/22 11/04/22 History bisacodyl 10 mg rectal suppository 10 mg WI DAILY PRN Constipation 11/04/22 11/04/22 History docusate sodium 100 mg capsule 100 mg PO BID 11/04/22 11/04/22 History insulin aspart U-100 100 unit/mL 4 unit subcut TIDM 11/04/22 11/04/22 History subcutaneous solution (Novolog U-100 Insulin aspart) insulin glargine 100 unit/mL 15 unit subcut DAILY 11/04/22 11/04/22 History subcutaneous solution lidocaine 5 % topical patch 1 patch topical DAILY 11/04/22 11/04/22 History magnesium hydroxide 400 mg/5 mL 30 ml PO DAILY PRN Constipation 11/04/22 11/04/22 History oral suspension (Milk of Magnesia) nystatin 100,000 unit/gram topical 1 applic topical BID 11/04/22 11/04/22 History powder ondansetron HCl 4 mg tablet 4 mg PO Q4H PRN NAUSEA/VOMITING 11/04/22 11/04/22 History polyethylene glycol 3350 17 17 g PO QDL PRN Constipation 11/04/22 11/04/22 History gram/dose oral powder (Miralax) sennosides 8.6 mg tablet (Senokot) 8.6 mg PO QDL PRN Constipation 11/04/22 11/04/22 History tramadol 50 mg tablet 50 mg PO Q6H PRN Pain 11/04/22 11/04/22 History Patient History Medical History (Updated 11/06/22 @ 11:19 by Olaf Davis MD) Arthritis Atelectasis Atrial fibrillation (09/2022) BPH (benign prostatic hyperplasia) Bradycardia Chronic diastolic heart failure Chronic kidney disease, stage III (moderate) Chronic venous stasis dermatitis of both lower extremities Depression Diabetes mellitus type 2 with complications Gout H/O osteomyelitis Hearing deficit History of amputation of toe Onset: 23 December 2017 R great toe, R 2nd toe Hyperlipidemia Hypertension Hypoxemia Mobitz type 1 second degree AV block NSTEMI (non-ST elevated myocardial infarction) Osteoarthritis Peripheral arterial disease SARS-CoV-2 positive Type 2 diabetes mellitus with diabetic neuropathy Urinary incontinence Venous insufficiency (chronic) (peripheral) Wheelchair bound Surgical History History of cataract surgery Right eye, 2017; L eye 2019 History of foot surgery tumor removal; left S/P arterial stent R leg, December 2017 S/P hip replacement 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) secondary to osteomyelitis Status post amputation of toe of left foot (07/06/21) L 2nd toe Status post amputation of toe of left foot (09/10/21) L 3rd adn 4th toes (d/t osteomyelitis) Status post amputation of toe of right foot R great toe, December 23, 2017 Total knee replacement status Right Family History Brother Cardiac disorder Aunt Colorectal cancer Sister Hypertension Breast cancer Denies family history of Ovarian cancer Prostate cancer Myocardial infarction Social History Smoking Status: Never smoker Second Hand Exposure: Yes; Hx Alcohol Use: No Hx Substance Use: No Preferred Language: Malawian Communication Ability: Effective Visual Impairment: Limited Hearing Ability: Hard of Hearing Peanut Grader Required: No Beliefs That Will Affect Care: Spiritual marital status: Current Living Situation: Alone Current Living Situation Comment: 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, starts at 9am current occupational status: retired Feels Safe at Home: Yes Childhood Exposure to Second-Hand Smoke: Yes caffeine: No during the past year weight has: decreased > 10 lbs Dental Care, Regularly: No Physical Activity Frequency: Does not Exercise Physical Activity Frequency Comment: limited by physical condition Seatbelt Use: always Sunscreen Use: No Assistive Devices: Lift Chair and Wheelchair Review of Systems Review of Systems: Per HPI Physical Exam Physical Exam: The patient is alert and oriented. Mood and affect appeared normal. He answered all questions appropriately. Hard of hearing. Morbidly obese. HEENT: Pupils are equal and reactive to light and accommodation. Extraocular movements are intact. The sclerae are anicteric. Neuro: Cranial nerves intact Lungs: Some coarse upper airway congestion. Normal respiratory effort Cardiac: Heart demonstrates an irregular rhythm. Normal S1 and S2. No murmurs on examination. Pulses: The patient has palpable radial pulses bilaterally that are equal in intensity Extremities: No toes on the left foot. Several toe amputations on the right foot. Chronic trophic changes on both lower legs Skin: Erethymetous rash on the inner aspect of both thighs Results & Data ([facility]) Vital Signs (Past 12 Hours) Vital Signs Temp Pulse Pulse Resp BP BP Pulse Ox 11/06/22 11:40 96 11/06/22 10:44 46 L 11/06/22 10:33 11/06/22 08:09 55 L 19 122/58 L 98 11/06/22 05:42 36.4 C L 53 L 16 114/49 L 97 11/06/22 02:24 56 L 16 105/66 97 11/06/22 01:27 97 O2 Del Method O2 Flow Rate 11/06/22 11:40 Nasal Cannula 3 11/06/22 10:44 11/06/22 10:33 High Flow Nasal Cannula 5 11/06/22 08:09 High Flow Nasal Cannula 5 11/06/22 05:42 High Flow Nasal Cannula 5 11/06/22 02:24 High Flow Nasal Cannula 6 11/06/22 01:27 High Flow Nasal Cannula 6 Laboratory Results Abnormal Lab Results 11/05/22 11/05/22 11/05/22 15:14 15:14 16:54 WBC RBC Hgb Hct MCV MCH MCHC RDW Std Deviation RDW Coeff of Ana María Plt Count MPV APTT 37.8 H PTT Ratio 1.4 D-Dimer Sodium Potassium Chloride Carbon Dioxide Anion Gap BUN Creatinine Est Cr Clr Drug Dosing Est GFR ( Amer) Est GFR (Non-Af Amer) BUN/Creatinine Ratio Glucose POC Glucose 346 H* Calcium Total Bilirubin Direct Bilirubin AST ALT Alkaline Phosphatase Troponin I High Sens 1628.6 H* Total Protein Albumin Globulin Albumin/Globulin Ratio 11/05/22 11/05/22 11/05/22 16:55 20:50 20:52 WBC RBC Hgb Hct MCV MCH MCHC RDW Std Deviation RDW Coeff of Ana María Plt Count MPV APTT PTT Ratio D-Dimer Sodium Potassium Chloride Carbon Dioxide Anion Gap BUN Creatinine Est Cr Clr Drug Dosing Est GFR ( Amer) Est GFR (Non-Af Amer) BUN/Creatinine Ratio Glucose POC Glucose 371 H* 331 H* 403 H* Calcium Total Bilirubin Direct Bilirubin AST ALT Alkaline Phosphatase Troponin I High Sens Total Protein Albumin Globulin Albumin/Globulin Ratio 11/05/22 11/06/22 11/06/22 20:53 00:09 02:50 WBC RBC Hgb Hct MCV MCH MCHC RDW Std Deviation RDW Coeff of Ana María Plt Count MPV APTT 119.7 H* PTT Ratio 4.4 D-Dimer Sodium Potassium Chloride Carbon Dioxide Anion Gap BUN Creatinine Est Cr Clr Drug Dosing Est GFR ( Amer) Est GFR (Non-Af Amer) BUN/Creatinine Ratio Glucose POC Glucose 347 H* 302 H* Calcium Total Bilirubin Direct Bilirubin AST ALT Alkaline Phosphatase Troponin I High Sens Total Protein Albumin Globulin Albumin/Globulin Ratio 11/06/22 11/06/22 11/06/22 06:39 07:06 07:06 WBC 18.46 H RBC 3.40 L Hgb 9.6 L Hct 32.0 L MCV 94.1 MCH 28.2 MCHC 30.0 L RDW Std Deviation 52.8 H RDW Coeff of Ana María 15.4 H Plt Count 409 H MPV 10.1 APTT PTT Ratio D-Dimer Sodium 132 L Potassium 6.0 H Chloride 97 L Carbon Dioxide 30 Anion Gap 5 BUN 48 H D Creatinine 2.26 H D Est Cr Clr Drug Dosing 38.8 Est GFR ( Amer) 31.9 Est GFR (Non-Af Amer) 27.5 BUN/Creatinine Ratio 21.2 H Glucose 219 H POC Glucose 232 H Calcium 7.7 L Total Bilirubin 0.5 Direct Bilirubin 0.1 AST 18 ALT 8 Alkaline Phosphatase 125 H Troponin I High Sens Total Protein 6.5 Albumin 2.6 L Globulin 3.9 Albumin/Globulin Ratio 0.7 L 11/06/22 11/06/22 07:06 08:10 WBC RBC Hgb Hct MCV MCH MCHC RDW Std Deviation RDW Coeff of Ana María Plt Count MPV APTT PTT Ratio D-Dimer 1350 H* Sodium Potassium Chloride Carbon Dioxide Anion Gap BUN Creatinine Est Cr Clr Drug Dosing Est GFR ( Amer) Est GFR (Non-Af Amer) BUN/Creatinine Ratio Glucose POC Glucose 199 H Calcium Total Bilirubin Direct Bilirubin AST ALT Alkaline Phosphatase Troponin I High Sens Total Protein Albumin Globulin Albumin/Globulin Ratio Diagnostic Findings Echocardiogram performed 11/05/2022: Low normal LV systolic function with ejection fraction 50-55%. Moderate LVH. Septal akinesis. Mild mitral annular calcification. Estimated right ventricular pressure is elevated 40 50 mm of mercury. Moderate IVC dilation. Echocardiogram performed 10/07/2022: Ejection fraction 50-55%. Stage II diastolic dysfunction. Apical septal akinesis. Elevated right ventricular pressures. Chest CTA performed 11/05/2022: No pulmonary emboli. Coronary artery calcification. Small pericardial effusion. Small bilateral pleural effusions with left lower lobe airspace opacity suggestive of atelectasis. ECG Additional Comments: EKG reveals normal sinus rhythm with Mobitz 1 block. PG Care Time/CCT Total # of Minutes Spent Total Time Spent with Patient: Total time spent is greater than 50% in coordination of care (as documented) at patient's floor/unit and/or counseling patient: Coding Level of Care Code 54096 INT INP/OBS CARE 3/75MIN Diagnoses Atrial fibrillation I48.91 Atrial fibrillation type: unspecified Chronic diastolic heart failure I50.32 Coronary artery disease I25.10 History of CVA (cerebrovascular accident) Z86.73 Mobitz type 1 second degree AV block I44.1 (1) Atrial fibrillation Atrial fibrillation type: unspecified Qualified Code(s): I48.91 - Unspecified atrial fibrillation
[2022-11-06 12:40] LABS: Partial Thromboplastin Ratio 2.2
[2022-11-06 12:48] LABS: Partial Thromboplastin Time 59.6 Seconds (21.0-31.0)
[2022-11-06] MEDS ORDERED: CLOPIDOGREL BISULFATE 75 MG TAB PO SCH (13:30)
[2022-11-06] MEDS: HEPARIN SODIUM/DEXTROSE 25,000 UNITS/500 ML BAG IV SCH (14:23)
[2022-11-06] MEDS ORDERED: HEPARIN DRIP~STOP ORDER ONE ×2 (14:45→21:00)
[2022-11-06] MEDS: SODIUM CHLORIDE 0.9% 1000ML 1,000 ML IV SCH (14:59)
--- NOTE | 2022-11-06 18:38 | Hospitalist Progress Note ---
Date of Service November 06, 2022 Assessment & Plan (1) Hypoxemia: Plan: Patient presented to the hospital with cough fever and hypoxia as well as encephalopathy COVID PCR test is positive however the consulting naphthalene operator is under the impression that it is coincidental given no evidence of viral pneumonia and CAT scan No evidence of PE, no evidence of pulmonary infiltrate, patient was extremely hypoxic upon admission required 15 L oxygen, initially patient was empirically treated with Zosyn Decadron and remdesivir Remdesivir was discontinued by consulting naphthalene operator, today patient has significantly doing better, only required with 3 L oxygen, Zosyn has been discontinued, I would initiate the patient on Augmentin, oral Decadron 6 mg daily Patient is not encephalopathic anymore (2) Encephalopathy: Plan: Metabolic encephalopathy has improved (3) NSTEMI (non-ST elevated myocardial infarction): Plan: Patient has a history of diabetes hypertension hyperlipidemia, diastolic heart coronary artery disease prior CVA Started on heparin drip Aspirin and Plavix Consult with printing plate maker No indication for cardiac cath Ischemic changes on EKG with wall motion abnormality noted on echo Cardiology does not recommend any intervention at this point Stop heparin drip switch to Apixaban (4) Atrial fibrillation: Plan: Rat Continue apixaban 5 mg p.o. twice daily As per cardiology note there is no definite documentation of atrial fibrillation Patient had Mobitz type I AV block patient has a history of Mobitz type I AV block/patient has bradycardia which could be secondary to remdesivir remdesivir has been discontinued (5) Chronic diastolic heart failure: Plan: Currently compensated (6) Hypertension: Plan: Blood pressure is borderline low, hold losartan (7) RHETT (acute kidney injury): Plan: -Baseline creatinine is between 0.81 up to 1.2 acute kidney injury possibly secondary to ORVILLE inhibitor's, Lasix dehydration poor intake and hypotension -Started on gentle fluid resuscitation given history of diastolic heart failure Current creatinine is 2.26 worsened than yesterday Low urine output BMP tomorrow Decrease the dose of gabapentin 300 mg nightly (8) Diabetes mellitus type 2 with complications: Plan: Poorly controlled diabetes, with A1c of 8.7 on 10/07 Currently patient has steroid-induced hyperglycemia, adjusted Lantus dosage (9) Gout: Plan: Chronic. Stable. Continue allopurinol Admission and Anticipated Discharge Date Admission Date: November 05, 2022 Subjective Doing significantly much better today, oxygen requirement came down to 3 L/min, yesterday was 15 L/min Physical Exam Physical Exam: General: patient ill in appearance, somnolent but arousable. Does not answer questions or participate with exam. Skin: warm, dry, redness to bilateral lower extremities with venous stasis changes, skin peeling. No bleeding or evidence of secondary infection. HEENT: NC/AT, PERRL, anicteric sclera, conjunctiva without injection, external ear normal to inspection and nontender, nares patent, moist mucus membranes, dentures in placelater removed by ER nursing, no oropharyngeal lesions, neck supple, trachea midline, no LAD, no thyromegaly, no JVD Heart: +S1/S2, irregularly irregular, no m/r/g Lungs: Coarse breath sounds bilaterally with upper airway secretions, diffuse end expiratory wheezing Abd: +BS, soft, NT/ND, no masses/organomegaly/ascites Ext: warm, 2+ pulses in UE/LE bilaterally, no clubbing/cyanosis or edema Neuro: Patient somnolent, arousable, not answering questions or following commands at present, will occasionally answer questions for nursing, moving all extremities with equal strength Results & Data Results & Data ([facility]) Vital Signs (Past 12 Hours) Vital Signs Temp Pulse Pulse Resp BP Pulse Ox O2 Del Method 11/06/22 16:43 66 11/06/22 15:19 37.0 C 58 L 19 117/59 L 97 Nasal Cannula 11/06/22 12:34 36.7 C 62 18 128/80 95 Nasal Cannula 11/06/22 11:40 96 Nasal Cannula 11/06/22 10:44 46 L 11/06/22 10:33 High Flow Nasal Cannula 11/06/22 08:09 55 L 19 122/58 L 98 High Flow Nasal Cannula O2 Flow Rate 11/06/22 16:43 11/06/22 15:19 3 11/06/22 12:34 3 11/06/22 11:40 3 11/06/22 10:44 11/06/22 10:33 5 11/06/22 08:09 5 PG Care Time/CCT Total # of Minutes Spent Total Time Spent with Patient: Total time spent is greater than 50% in coordination of care (as documented) at patient's floor/unit and/or counseling patient: Coding Level of Care Code 18161 SUB INP/OBS CARE MIN Diagnoses Hypoxemia R09.02 Encephalopathy G93.40 NSTEMI (non-ST elevated myocardial infarction) I21.4 Atrial fibrillation I48.91 Atrial fibrillation type: unspecified Chronic diastolic heart failure I50.32 Hypertension I10 RHETT (acute kidney injury) N17.9 Diabetes mellitus type 2 with complications E11.8 Gout M10.9 (1) Atrial fibrillation Atrial fibrillation type: unspecified Qualified Code(s): I48.91 - Unspecified atrial fibrillation
[2022-11-06] MEDS ORDERED: SODIUM CHLOR 7% 4 ML NEB NEB SCH (19:00)
[2022-11-06] MEDS ORDERED: SODIUM CHLORIDE 0.9% 500 ML IV SCH (19:30)
[2022-11-06] MEDS: LANTUS PER UNIT CHARGE SQ SCH (19:50)
[2022-11-06] MEDS: traMADol HCL 50 MG TABLET PO PRN (19:57)
[2022-11-06] MEDS: APIXABAN 5 MG TABLET PO SCH (20:02)
[2022-11-06] MEDS: ATORVASTATIN 10 MG TAB PO SCH (21:13)
[2022-11-06] MEDS: GABAPENTIN 300 MG CAP PO SCH (21:13)
[2022-11-07] MEDS ORDERED: STAT IV STA (00:38)
[2022-11-07] MEDS ORDERED: CALCIUM GLUCONATE 10% 1,000 MG in DEXTROSE 5% 50 ML IV ONE (00:48)
[2022-11-07] MEDS ORDERED: DEXTROSE 50% 50 ML SYRINGE IV ONE (00:50)
[2022-11-07] MEDS ORDERED: INSULIN HUMAN REGULAR PER UNIT 10 UNITS in SYRINGE 9.9 ML IV ONE (00:51)
[2022-11-07] MEDS: SODIUM CHLORIDE 0.9% 1000ML 1,000 ML IV SCH ×2 (02:34→16:07)
[2022-11-07] MEDS: PIPERACILLIN/TAZOBACTAM 4.5 GM in DEXTROSE 5% 100 ML IV SCH (05:33)
[2022-11-07 06:27] LABS: Hematocrit (blood only) 26.6 % (42.0-52.0); Hemoglobin 8.3 g/dl (14.0-18.0); Mean Corpuscular Hemoglobin 28.6 pg (25.0-34.0); Mean Corpuscular Hgb Conc 31.2 g/dL (32.0-36.0); Mean Corpuscular Volume 91.7 fL (80.0-100.0); Mean Platelet Volume 10.2 fL (9.4-12.4); Nucleated RBC # (auto) 0.02 K/uL (0-0.12); Nucleated RBC % (auto) 0.1 %; Platelet Count 356 K/uL (130-400); RDW Coefficient of Variation 15.6 % (11.5-14.5); RDW Standard Deviation 51.8 fL (36.4-46.3); White Blood Count 26.39 K/ul (4.8-10.8)
[2022-11-07 06:52] LABS: Calcium 7.5 mg/dl (8.5-10.1); Magnesium 2.1 mg/dl (1.7-2.4); Potassium 5.8 mmol/L (3.5-5.1)
[2022-11-07 06:58] LABS: BUN Creatinine Ratio 23.6 (10-20); Est GFR (African American) 27.2 ml/min; Est GFR (Non-African American) 23.5 ml/min
[2022-11-07] MEDS: INSULIN ASPART PER UNIT CHARGE SC SCH ×5 (08:34→21:06)
[2022-11-07] MEDS ORDERED: FUROSEMIDE 40 MG TAB PO SCH (09:00)
[2022-11-07] MEDS ORDERED: dexAMETHasone 4 MG TAB PO SCH (09:00)
[2022-11-07] MEDS: AMMONIUM LACTATE 12% LOTION 225 GM BTL EXT SCH ×3 (09:12→21:11)
[2022-11-07] MEDS: guaiFENesin 600 MG TABCR PO SCH ×3 (09:12→21:11)
[2022-11-07] MEDS: TAMSULOSIN HCL 0.4 MG CAP PO SCH (09:13)
[2022-11-07] MEDS: FINASTERIDE 5 MG TAB PO SCH (09:13)
[2022-11-07] MEDS: AMOXICILLIN/CLAVULANATE 875 MG TAB PO SCH ×2 (09:13→16:08)
[2022-11-07] MEDS: allopurinoL 100 MG TAB PO SCH (09:14)
[2022-11-07] MEDS: APIXABAN 5 MG TABLET PO SCH ×3 (09:14→21:11)
[2022-11-07] MEDS: ASPIRIN 81 MG ECTAB PO SCH (09:14)
[2022-11-07] MEDS: NYSTATIN POWDER 15GM BTL EXT SCH ×3 (09:15→21:11)
[2022-11-07] MEDS: DOCUSATE SODIUM 100 MG CAP PO SCH ×3 (09:15→21:11)
[2022-11-07] MEDS: LIDOCAINE 5% 1 PATCH TD SCH (09:15)
[2022-11-07] MEDS: LANTUS PER UNIT CHARGE SQ SCH ×2 (09:26→21:06)
--- NOTE | 2022-11-07 12:13 | Cardiology Progress Note ---
Date of Service November 07, 2022 Assessment & Plan (1) Atrial fibrillation: (2) Chronic diastolic heart failure: (3) Coronary artery disease: (4) History of CVA (cerebrovascular accident): (5) Mobitz type 1 second degree AV block: Plan 1. Atrial fibrillation: This is by report. No atrial fibrillation noted on telemetry. Heparin discontinued. Continue Eliquis. 2. Coronary disease: Presumed. No symptoms suggestive of coronary insufficiency or angina. I would continue apixaban and atorvastatin. 3. Heart failure with preserved ejection fraction: Known to have stage II diastolic dysfunction. 4. Mobitz 1 av block: He has a history of Mobitz 1 av block. I reviewed his records and telemetry. No higher degree block noted 5. Bradycardia:Related to his underlying conduction disease. No symptoms. 6. Elevated troponin: Timing of elevations and gradual resolution suggests the injury occurred just prior to admission. He has had elevations before and certainly has coronary disease, possibly severe. The most likely mechanism for his elevations is still demand ischemia in the setting of mild hypotension, hypoxia and fever. I would agree with discontinuing heparin and resuming his usual outpatient medical regimen. The best treatment currently supportive care. Oxygen requirement reduced today. No evidence of pulmonary vascular congestion, in fact some evidence of volume contraction. Admission and Anticipated Discharge Date Admission Date: November 05, 2022 Subjective I did not see the patient today as he is in isolation. I did review his records and telemetry. Review of Systems Review of Systems: n/a Physical Exam Physical Exam: n/a Results & Data ([facility]) Vital Signs (Past 12 Hours) Vital Signs Temp Pulse Pulse Resp BP Pulse Ox O2 Del Method 11/07/22 10:39 36.4 C L 65 22 148/76 H 95 Nasal Cannula 11/07/22 08:39 36.6 C 69 22 152/88 H 95 Nasal Cannula 11/07/22 07:39 59 L 11/07/22 04:00 36.6 C 62 18 127/67 96 Nasal Cannula 11/07/22 02:55 99 High Flow Nasal Cannula O2 Flow Rate 11/07/22 10:39 2 11/07/22 08:39 2 11/07/22 07:39 11/07/22 04:00 2 11/07/22 02:55 2 Laboratory Results Abnormal Lab Results 11/06/22 11/06/22 11/06/22 12:06 12:20 17:07 WBC RBC Hgb Hct MCV MCH MCHC RDW Std Deviation RDW Coeff of Ana María Plt Count MPV Absolute Nucleated RBC Nucleated RBC % (auto) APTT 59.6 H* PTT Ratio 2.2 Sodium Potassium Chloride Carbon Dioxide Anion Gap BUN Creatinine Est Cr Clr Drug Dosing Est GFR ( Amer) Est GFR (Non-Af Amer) BUN/Creatinine Ratio Glucose POC Glucose 240 H 251 H Calcium Magnesium 11/06/22 11/07/22 11/07/22 20:10 05:51 05:51 WBC 26.39 H RBC 2.90 L Hgb 8.3 L Hct 26.6 L MCV 91.7 MCH 28.6 MCHC 31.2 L RDW Std Deviation 51.8 H RDW Coeff of Ana María 15.6 H Plt Count 356 MPV 10.2 Absolute Nucleated RBC 0.02 Nucleated RBC % (auto) 0.1 APTT PTT Ratio Sodium 131 L Potassium 5.8 H Chloride 96 L Carbon Dioxide 30 Anion Gap 5 BUN 61 H Creatinine 2.58 H D Est Cr Clr Drug Dosing 34.0 Est GFR ( Amer) 27.2 Est GFR (Non-Af Amer) 23.5 BUN/Creatinine Ratio 23.6 H Glucose 142 H POC Glucose 191 H Calcium 7.5 L Magnesium 2.1 11/07/22 08:30 WBC RBC Hgb Hct MCV MCH MCHC RDW Std Deviation RDW Coeff of Ana María Plt Count MPV Absolute Nucleated RBC Nucleated RBC % (auto) APTT PTT Ratio Sodium Potassium Chloride Carbon Dioxide Anion Gap BUN Creatinine Est Cr Clr Drug Dosing Est GFR ( Amer) Est GFR (Non-Af Amer) BUN/Creatinine Ratio Glucose POC Glucose 156 H Calcium Magnesium PG Care Time/CCT Total # of Minutes Spent Total Time Spent with Patient: Total time spent is greater than 50% in coordination of care (as documented) at patient's floor/unit and/or counseling patient: Coding Level of Care Code None Diagnoses Atrial fibrillation I48.91 Atrial fibrillation type: unspecified Chronic diastolic heart failure I50.32 Coronary artery disease I25.10 History of CVA (cerebrovascular accident) Z86.73 Mobitz type 1 second degree AV block I44.1 (1) Atrial fibrillation Atrial fibrillation type: unspecified Qualified Code(s): I48.91 - Unspecified atrial fibrillation
--- NOTE | 2022-11-07 16:18 | Hospitalist Progress Note ---
Date of Service November 07, 2022 Assessment & Plan (1) Hypoxemia: Plan: Patient presented to the hospital with cough fever and hypoxia as well as encephalopathy COVID PCR test is positive however the consulting apartment rental agent is under the impression that it is coincidental given no evidence of viral pneumonia and CAT scan No evidence of PE, no evidence of pulmonary infiltrate, patient was extremely hypoxic upon admission required 15 L oxygen, initially patient was empirically treated with Zosyn Decadron and remdesivir Remdesivir was discontinued by consulting apartment rental agent, today patient has significantly doing better, Currently patient is on room air, continue Augmentin, Zosyn was discontinued on 11/07 Worsening of leukocytosis Possibly secondary to steroid effect Dexamethasone was discontinued CBC tomorrow (2) Leukocytosis: Plan: Worsening today, possibly secondary to steroid effect Dexamethasone is discontinued today (3) Encephalopathy: Plan: Metabolic encephalopathy has improved (4) NSTEMI (non-ST elevated myocardial infarction): Plan: Patient has a history of diabetes hypertension hyperlipidemia, diastolic heart coronary artery disease prior CVA Started on heparin drip Consult with policy cancellation clerk No indication for cardiac cath Ischemic changes on EKG with wall motion abnormality noted on echo Cardiology does not recommend any intervention at this point Stop heparin drip switch to Apixaban on 11/06 Discussed with cardiology no indication for dual antiplatelet agent, continue aspirin (5) Atrial fibrillation: Plan: Rat Continue apixaban 5 mg p.o. twice daily As per cardiology note there is no definite documentation of atrial fibrillation Patient had Mobitz type I AV block patient has a history of Mobitz type I AV block/patient has bradycardia which could be secondary to remdesivir remdesivir has been discontinued (6) Chronic diastolic heart failure: Plan: Currently compensated (7) Hypertension: Plan: Initially patient was hypotensive losartan has been held, today is systolic blood pressure increased to 160, continue to hold losartan given of acute kidney injury (8) RHETT (acute kidney injury): Plan: -Baseline creatinine is between 0.81 up to 1.2 acute kidney injury possibly secondary to ORVILLE inhibitor's, Lasix dehydration poor intake and hypotension -Started on gentle fluid resuscitation given history of diastolic heart failure -Worsening of RHETT, today creatinine increased to 2.58, continue IV fluid, complicated with hyperkalemia, started on Lokelma, continue cardiac monitoring, urine output has increased, I expect that the creatinine dropped for the next 24 to 48 hours BMP tomorrow Decrease the dose of gabapentin 300 mg nightly (9) Hyperkalemia: Plan: Most likely secondary to acute kidney injury, hold losartan, hold Lasix, continue IV fluid, started on Lokelma, low potassium diet (10) Diabetes mellitus type 2 with complications: Plan: Poorly controlled diabetes, with A1c of 8.7 on 10/07 Currently patient has steroid-induced hyperglycemia, Improving, Lantus dosage was increased to 30 units twice daily and 11/06 (11) Gout: Plan: Chronic. Stable. Continue allopurinol Admission and Anticipated Discharge Date Admission Date: November 05, 2022 Physical Exam Physical Exam: General: Alert oriented moderately obese CVS: No murmur no gallop Chest: No wheezing no chest wall abnormality Abdomen: Soft, bowel sounds active Extremities: No tenderness Results & Data Results & Data ([facility]) Vital Signs (Past 12 Hours) Vital Signs Temp Pulse Pulse Resp BP Pulse Ox O2 Del Method 11/07/22 16:11 36.9 C 64 18 160/61 H 94 Room Air 11/07/22 13:17 Room Air 11/07/22 10:39 36.4 C L 65 22 148/76 H 95 Nasal Cannula 11/07/22 08:39 36.6 C 69 22 152/88 H 95 Nasal Cannula 11/07/22 07:39 59 L O2 Flow Rate 11/07/22 16:11 11/07/22 13:17 11/07/22 10:39 2 11/07/22 08:39 2 11/07/22 07:39 PG Care Time/CCT Total # of Minutes Spent Total Time Spent with Patient: Total time spent is greater than 50% in coordination of care (as documented) at patient's floor/unit and/or counseling patient: Coding Level of Care Code 48392 SUB INP/OBS CARE 3/50MIN Diagnoses Hypoxemia R09.02 Leukocytosis D72.829 Encephalopathy G93.40 NSTEMI (non-ST elevated myocardial infarction) I21.4 Atrial fibrillation I48.91 Atrial fibrillation type: unspecified Chronic diastolic heart failure I50.32 Hypertension I10 RHETT (acute kidney injury) N17.9 Hyperkalemia E87.5 Diabetes mellitus type 2 with complications E11.8 Gout M10.9 (1) Atrial fibrillation Atrial fibrillation type: unspecified Qualified Code(s): I48.91 - Unspecified atrial fibrillation
[2022-11-07] MEDS: GABAPENTIN 300 MG CAP PO SCH ×2 (20:59→21:11)
[2022-11-07] MEDS: ATORVASTATIN 10 MG TAB PO SCH ×2 (21:00→21:11)
[2022-11-07] MEDS: SODIUM ZIRCONIUM CYCLOSILICATE 10 GM PACKET PO SCH ×2 (21:03→21:12)
[2022-11-08] MEDS: traMADol HCL 50 MG TABLET PO PRN ×2 (01:31→21:14)
[2022-11-08] MEDS: LIDOCAINE 5% 1 PATCH TD SCH (01:34)
[2022-11-08] MEDS: SODIUM CHLORIDE 0.9% 1000ML 1,000 ML IV SCH ×2 (05:54→17:21)
--- NOTE | 2022-11-08 08:03 | Electrocardiogram Report ---
Test Reason : Blood Pressure : / mmHG Vent. Rate : 093 BPM Atrial Rate : 093 BPM P-R Int : 000 ms QRS Dur : 114 ms QT Int : 370 ms P-R-T Axes : 000 011 114 degrees QTc Int : 460 ms Sinus rhythm with sinus arrhythmia and 1st degree AV block Anterolateral infarct (cited on or before 06-OCT-2022) Abnormal ECG When compared with ECG of 26-OCT-2022 12:51, Rhythm now appears likely sinus Confirmed by Stephen Cash ([id number]) on 11/05/2022 3:17:53 PM Referred By: REFERRED SELF Confirmed By:Noah Cash
[2022-11-08] MEDS: INSULIN ASPART PER UNIT CHARGE SC SCH ×4 (08:10→21:00)
[2022-11-08] MEDS: AMMONIUM LACTATE 12% LOTION 225 GM BTL EXT SCH ×2 (08:19→20:56)
[2022-11-08] MEDS: AMOXICILLIN/CLAVULANATE 875 MG TAB PO SCH ×2 (08:19→17:23)
[2022-11-08] MEDS: allopurinoL 100 MG TAB PO SCH (08:19)
[2022-11-08] MEDS: ASPIRIN 81 MG ECTAB PO SCH (08:20)
[2022-11-08] MEDS: FINASTERIDE 5 MG TAB PO SCH (08:20)
[2022-11-08] MEDS: guaiFENesin 600 MG TABCR PO SCH ×2 (08:20→20:58)
[2022-11-08] MEDS: DOCUSATE SODIUM 100 MG CAP PO SCH ×2 (08:20→21:13)
[2022-11-08] MEDS: APIXABAN 5 MG TABLET PO SCH ×2 (08:20→21:00)
[2022-11-08] MEDS: LANTUS PER UNIT CHARGE SQ SCH ×2 (08:23→21:00)
[2022-11-08] MEDS: NYSTATIN POWDER 15GM BTL EXT SCH ×2 (08:23→21:17)
[2022-11-08] MEDS: SODIUM ZIRCONIUM CYCLOSILICATE 10 GM PACKET PO SCH ×3 (08:23→21:17)
[2022-11-08] MEDS: TAMSULOSIN HCL 0.4 MG CAP PO SCH (08:23)
[2022-11-08 11:17] LABS: Hematocrit (blood only) 26.4 % (42.0-52.0); Hemoglobin 8.3 g/dl (14.0-18.0); Mean Corpuscular Hemoglobin 28.2 pg (25.0-34.0); Mean Corpuscular Hgb Conc 31.4 g/dL (32.0-36.0); Mean Corpuscular Volume 89.8 fL (80.0-100.0); Mean Platelet Volume 9.8 fL (9.4-12.4); Platelet Count 337 K/uL (130-400); RDW Coefficient of Variation 15.9 % (11.5-14.5); Red Blood Count 2.94 M/uL (4.70-6.10); White Blood Count 17.44 K/ul (4.8-10.8)
[2022-11-08 12:06] LABS: Potassium 4.6 mmol/L (3.5-5.1)
[2022-11-08 12:17] LABS: BUN Creatinine Ratio 26.3 (10-20); Creatinine Clr Calc Pharmacy 34.4 ml/min; Est GFR (African American) 27.6 ml/min; Est GFR (Non-African American) 23.8 ml/min
[2022-11-08] MEDS: GABAPENTIN 300 MG CAP PO SCH (20:58)
[2022-11-08] MEDS: ATORVASTATIN 10 MG TAB PO SCH (20:59)
--- NOTE | 2022-11-08 21:45 | Hospitalist Progress Note ---
Date of Service November 08, 2022 Assessment & Plan (1) Behavior disturbance: Plan: On 11/08 the patient became agitated, became aggressive towards the nursing staff survey methodologist using a F words, refused to let the survey methodologist to do blood draw, refused taking meds, threw objects to the nursing, nursing cranberry farm supervisor was informed, security was called , he was also aggressive toward me today and he was aggressive to nurses and 11/06 (2) Sepsis: Plan: Presented to hospital with hypoxia hypertension acute kidney injury and altered mental status possibly secondary to pneumonia resolved, initially started on Zosyn, currently switched to Augmentin (3) RHETT (acute kidney injury): Plan: -Baseline creatinine is between 0.81 up to 1.2 acute kidney injury possibly secondary to ORVILLE inhibitor's, Lasix dehydration poor intake and hypotension and sepsis -Started on gentle fluid resuscitation given history of diastolic heart failure -Worsening of RHETT, today creatinine increased to 2.58, continue IV fluid, complicated with hyperkalemia, started on Lokelma, continue cardiac monitoring, urine output has increased, I expect that the creatinine dropped for the next 24 to 48 hours BMP tomorrow Decrease the dose of gabapentin 300 mg nightly (4) Hyperkalemia: Plan: Most likely secondary to acute kidney injury, and losartan, hold losartan, hold Lasix, continue IV fluid, Stop Lokelma Resolved BMP to (5) Hypoxemia: Plan: Patient presented to the hospital with cough fever and hypoxia as well as encephalopathy COVID PCR test is positive however the consulting investment banker is under the impression that it is coincidental given no evidence of viral pneumonia and CAT scan No evidence of PE, no evidence of pulmonary infiltrate, patient was extremely hypoxic upon admission required 15 L oxygen, initially patient was empirically treated with Zosyn Decadron and remdesivir Remdesivir was discontinued by consulting investment banker, today patient has significantly doing better, Currently patient is on room air, continue Augmentin, Zosyn was discontinued on 11/07 Dexamethasone was discontinued CBC tomorrow (6) Leukocytosis: Plan: Improving, repeat CBC tomorrow (7) Encephalopathy: Plan: Metabolic encephalopathy has improved (8) NSTEMI (non-ST elevated myocardial infarction): Plan: Patient has a history of diabetes hypertension hyperlipidemia, diastolic heart coronary artery disease prior CVA Started on heparin drip Consult with wildlife control operator No indication for cardiac cath Ischemic changes on EKG with wall motion abnormality noted on echo Cardiology does not recommend any intervention at this point Stop heparin drip switch to Apixaban on 11/06 Discussed with cardiology no indication for dual antiplatelet agent, continue aspirin (9) Atrial fibrillation: Plan: Rat Continue apixaban 5 mg p.o. twice daily As per cardiology note there is no definite documentation of atrial fibrillation Patient had Mobitz type I AV block patient has a history of Mobitz type I AV block/patient has bradycardia which could be secondary to remdesivir remdesivir has been discontinued (10) Chronic diastolic heart failure: Plan: Currently compensated, hold Lasix due to acute kidney injury (11) Hypertension: Plan: Initially patient was hypotensive losartan has been held, today is systolic blood pressure increased to 160, continue to hold losartan given of acute kidney injury, add Norvasc 10 mg daily (12) Diabetes mellitus type 2 with complications: Plan: Poorly controlled diabetes, with A1c of 8.7 on 10/07 Currently patient has steroid-induced hyperglycemia, Improving, Lantus dosage was increased to 30 units twice daily and 11/06 (13) Gout: Plan: Chronic. Stable. Continue allopurinol Admission and Anticipated Discharge Date Admission Date: November 05, 2022 Subjective Today, patient was aggressive towards the nursing staff and survey methodologist, he threw objects to the nursing, refused survey methodologist to do blood draw, using F words, refused taking his medications according to his nurse, his behavior toward me also was aggressive, charge nurse and security was called Physical Exam Physical Exam: General: Alert oriented moderately obese CVS: No murmur no gallop Chest: No wheezing no chest wall abnormality Abdomen: Soft, bowel sounds active Extremities: No tenderness Results & Data Results & Data ([facility]) Vital Signs (Past 12 Hours) Vital Signs Temp Pulse Pulse Resp BP Pulse Ox O2 Del Method 11/08/22 19:45 36.7 C 73 20 170/91 H 90 Room Air 11/08/22 16:05 70 11/08/22 14:53 36.5 C 67 20 158/76 H 91 Room Air 11/08/22 11:40 36.7 C 72 20 155/82 H 90 Room Air 11/08/22 11:00 70 PG Care Time/CCT Total # of Minutes Spent Total Time Spent with Patient: Total time spent is greater than 50% in coordination of care (as documented) at patient's floor/unit and/or counseling patient: Coding Level of Care Code 27177 SUB INP/OBS CARE 3/50MIN Diagnoses Behavior disturbance F91.9 Sepsis A41.9 RHETT (acute kidney injury) N17.9 Hyperkalemia E87.5 Hypoxemia R09.02 Leukocytosis D72.829 Encephalopathy G93.40 NSTEMI (non-ST elevated myocardial infarction) I21.4 Atrial fibrillation I48.91 Atrial fibrillation type: unspecified Chronic diastolic heart failure I50.32 Hypertension I10 Diabetes mellitus type 2 with complications E11.8 Gout M10.9 (1) Atrial fibrillation Atrial fibrillation type: unspecified Qualified Code(s): I48.91 - Unspecified atrial fibrillation
[2022-11-08] MEDS ORDERED: amLODIPine BESYLATE 5 MG TAB PO ONE (23:03)
[2022-11-09] MEDS: SODIUM CHLORIDE 0.9% 1000ML 1,000 ML IV SCH ×2 (04:49→17:18)
[2022-11-09] MEDS: FINASTERIDE 5 MG TAB PO SCH (08:04)
[2022-11-09] MEDS: TAMSULOSIN HCL 0.4 MG CAP PO SCH (08:04)
[2022-11-09] MEDS: SENNA 8.6 MG TAB PO PRN ×2 (08:05→21:24)
[2022-11-09] MEDS: APIXABAN 5 MG TABLET PO SCH ×2 (08:05→21:22)
[2022-11-09] MEDS: guaiFENesin 600 MG TABCR PO SCH ×2 (08:08→21:22)
[2022-11-09] MEDS: ASPIRIN 81 MG ECTAB PO SCH (08:09)
[2022-11-09] MEDS: allopurinoL 100 MG TAB PO SCH (08:09)
[2022-11-09] MEDS: NYSTATIN POWDER 15GM BTL EXT SCH ×2 (08:11→21:24)
[2022-11-09] MEDS: LANTUS PER UNIT CHARGE SQ SCH (08:11)
[2022-11-09] MEDS: LIDOCAINE 5% 1 PATCH TD SCH (08:11)
[2022-11-09] MEDS: INSULIN ASPART PER UNIT CHARGE SC SCH ×4 (08:12→21:09)
[2022-11-09] MEDS: DOCUSATE SODIUM 100 MG CAP PO SCH ×2 (08:12→21:24)
[2022-11-09] MEDS: AMMONIUM LACTATE 12% LOTION 225 GM BTL EXT SCH ×2 (08:12→21:21)
[2022-11-09 09:13] LABS: Hematocrit (blood only) 31.1 % (42.0-52.0); Hemoglobin 9.8 g/dl (14.0-18.0); Mean Corpuscular Hemoglobin 28.8 pg (25.0-34.0); Mean Corpuscular Hgb Conc 31.5 g/dL (32.0-36.0); Mean Corpuscular Volume 91.5 fL (80.0-100.0); Mean Platelet Volume 10.4 fL (9.4-12.4); Platelet Count 385 K/uL (130-400); RDW Coefficient of Variation 16.4 % (11.5-14.5); RDW Standard Deviation 53.4 fL (36.4-46.3); White Blood Count 16.03 K/ul (4.8-10.8)
[2022-11-09 09:29] LABS: Calcium 7.7 mg/dl (8.5-10.1); Creatinine Clr Calc Pharmacy 49.8 ml/min; Est GFR (African American) 43.2 ml/min; Est GFR (Non-African American) 37.3 ml/min; Potassium 4.2 mmol/L (3.5-5.1)
[2022-11-09] MEDS: traMADol HCL 50 MG TABLET PO PRN (14:02)
--- NOTE | 2022-11-09 17:21 | Hospitalist Progress Note ---
Date of Service November 09, 2022 Assessment & Plan (1) RHETT (acute kidney injury): Plan: -Baseline creatinine is between 0.81 up to 1.2 acute kidney injury possibly secondary to ORVILLE inhibitor's, Lasix dehydration poor intake and hypotension and sepsis -Started on gentle fluid resuscitation given history of diastolic heart failure -Improving of RHETT, today creatinine decreased to 1.76, stop IV fluid, hyperkalemia has resolved, stop Lokelma, monitor for tomorrow, BMP tomorrow Decrease the dose of gabapentin 300 mg nightly (2) Behavior disturbance: Plan: On 11/08 the patient became agitated, became aggressive towards the nursing staff fiber artist using a F words, refused to let the fiber artist to do blood draw, refused taking meds, threw objects to the nursing, nursing yeast supervisor was informed, security was called , he was also aggressive toward me today and he was aggressive to nurses and 11/06 (3) Hyperkalemia: Plan: Most likely secondary to acute kidney injury, and losartan, hold losartan, hold Lasix, resolved Stop Lokelma Resolved BMP to (4) Sepsis: Plan: Presented to hospital with hypoxia hypertension acute kidney injury and altered mental status possibly secondary to pneumonia resolved, initially started on Zosyn, currently switched to Augmentin (5) Hypoxemia: Plan: Patient presented to the hospital with cough fever and hypoxia as well as encephalopathy COVID PCR test is positive however the consulting brood station manager is under the impression that it is coincidental given no evidence of viral pneumonia on CAT scan No evidence of PE, no evidence of pulmonary infiltrate, patient was extremely hypoxic upon admission required 15 L oxygen, initially patient was empirically treated with Zosyn Decadron and remdesivir Remdesivir was discontinued by consulting brood station manager, Currently patient is on room air, continue Augmentin, Zosyn was discontinued on 11/07 Dexamethasone was discontinued 11/06 Leukocytosis trending CBC tomorrow (6) Leukocytosis: Plan: Improving, repeat CBC tomorrow (7) Encephalopathy: Plan: Metabolic encephalopathy has improved (8) NSTEMI (non-ST elevated myocardial infarction): Plan: Patient has a history of diabetes hypertension hyperlipidemia, diastolic heart coronary artery disease prior CVA Started on heparin drip Consult with directional driller No indication for cardiac cath Ischemic changes on EKG with wall motion abnormality noted on echo Cardiology does not recommend any intervention at this point Stop heparin drip switch to Apixaban on 11/06 Discussed with cardiology no indication for dual antiplatelet agent, continue aspirin (9) Atrial fibrillation: Plan: Rat Continue apixaban 5 mg p.o. twice daily As per cardiology note there is no definite documentation of atrial fibrillation Patient had Mobitz type I AV block patient has a history of Mobitz type I AV block/patient has bradycardia which could be secondary to remdesivir remdesivir has been discontinued (10) Chronic diastolic heart failure: Plan: Currently compensated, hold Lasix due to acute kidney injury (11) Hypertension: Plan: Initially patient was hypotensive losartan has been held, today is systolic blood pressure increased to 160, continue to hold losartan given of acute kidney injury, add Norvasc 10 mg daily on 11/08 (12) Diabetes mellitus type 2 with complications: Plan: Poorly controlled diabetes, with A1c of 8.7 on 10/07 Episodes of hypoglycemia, cut down the dose of Lantus to 20 units daily, patient at home takes 30 units daily (13) Gout: Plan: Chronic. Stable. Continue allopurinol Admission and Anticipated Discharge Date Admission Date: November 05, 2022 Subjective No complaint, wants to leave the hospital, leukocytosis trending down, acute kidney injury has improved Physical Exam Physical Exam: General: Alert oriented moderately obese CVS: No murmur no gallop Chest: No wheezing no chest wall abnormality Abdomen: Soft, bowel sounds active Extremities: No tenderness Results & Data Results & Data ([facility]) Vital Signs (Past 12 Hours) Vital Signs Temp Pulse Pulse Resp BP Pulse Ox O2 Del Method 11/09/22 16:06 73 11/09/22 08:01 36.8 C 78 20 168/78 H 92 Room Air 11/09/22 07:21 85 PG Care Time/CCT Total # of Minutes Spent Total Time Spent with Patient: Total time spent is greater than 50% in coordination of care (as documented) at patient's floor/unit and/or counseling patient: Coding Level of Care Code 81485 SUB INP/OBS CARE 3/50MIN Diagnoses RHETT (acute kidney injury) N17.9 Behavior disturbance F91.9 Hyperkalemia E87.5 Sepsis A41.9 Hypoxemia R09.02 Leukocytosis D72.829 Encephalopathy G93.40 NSTEMI (non-ST elevated myocardial infarction) I21.4 Atrial fibrillation I48.91 Atrial fibrillation type: unspecified Chronic diastolic heart failure I50.32 Hypertension I10 Diabetes mellitus type 2 with complications E11.8 Gout M10.9 (1) Atrial fibrillation Atrial fibrillation type: unspecified Qualified Code(s): I48.91 - Unspecified atrial fibrillation
[2022-11-09] MEDS: amLODIPine BESYLATE 5 MG TAB PO SCH (18:12)
[2022-11-09] MEDS ORDERED: LANTUS PER UNIT CHARGE SQ SCH (21:00)
[2022-11-09] MEDS: GABAPENTIN 300 MG CAP PO SCH (21:23)
[2022-11-09] MEDS: ATORVASTATIN 10 MG TAB PO SCH (21:23)
[2022-11-10] MEDS: SODIUM CHLORIDE 0.9% 1000ML 1,000 ML IV SCH (05:32)
[2022-11-10] MEDS: INSULIN ASPART PER UNIT CHARGE SC SCH ×2 (08:12→12:14)
[2022-11-10] MEDS: ASPIRIN 81 MG ECTAB PO SCH (08:22)
[2022-11-10] MEDS: allopurinoL 100 MG TAB PO SCH (08:22)
[2022-11-10] MEDS: guaiFENesin 600 MG TABCR PO SCH (08:22)
[2022-11-10] MEDS: TAMSULOSIN HCL 0.4 MG CAP PO SCH (08:23)
[2022-11-10] MEDS: amLODIPine BESYLATE 5 MG TAB PO SCH (08:23)
[2022-11-10] MEDS: FINASTERIDE 5 MG TAB PO SCH (08:23)
[2022-11-10] MEDS: APIXABAN 5 MG TABLET PO SCH (08:24)
[2022-11-10] MEDS: DOCUSATE SODIUM 100 MG CAP PO SCH (08:24)
[2022-11-10] MEDS: AMMONIUM LACTATE 12% LOTION 225 GM BTL EXT SCH (08:24)
[2022-11-10] MEDS: NYSTATIN POWDER 15GM BTL EXT SCH (08:25)
[2022-11-10] MEDS: LIDOCAINE 5% 1 PATCH TD SCH (08:25)
[2022-11-10 09:01] LABS: Hematocrit (blood only) 32.6 % (42.0-52.0); Hemoglobin 9.9 g/dl (14.0-18.0); Mean Corpuscular Hemoglobin 27.9 pg (25.0-34.0); Mean Corpuscular Hgb Conc 30.4 g/dL (32.0-36.0); Mean Corpuscular Volume 91.8 fL (80.0-100.0); Mean Platelet Volume 10.2 fL (9.4-12.4); Platelet Count 365 K/uL (130-400); RDW Coefficient of Variation 16.4 % (11.5-14.5); RDW Standard Deviation 54.5 fL (36.4-46.3); Red Blood Count 3.55 M/uL (4.70-6.10); White Blood Count 13.89 K/ul (4.8-10.8)
[2022-11-10 09:20] LABS: BUN Creatinine Ratio 33.6 (10-20); Calcium 7.8 mg/dl (8.5-10.1); Creatinine Clr Calc Pharmacy 75.6 ml/min; Est GFR (African American) 71.5 ml/min; Est GFR (Non-African American) 61.7 ml/min; Potassium 4.3 mmol/L (3.5-5.1)
--- NOTE | 2022-11-10 15:42 | Discharge Summary ---
Date of Service November 10, 2022 Admission HPI Per Admitting Provider Moreno Maynard is a 72-year-old male with multiple medical comorbidities to include atrial fibrillation, CKD 3, diabetes, hypertension, hyperlipidemia, CAD, prior CVA presenting from [facility] with report of fever, shortness of breath and hypoxia. Patient was hospitalized at [facility] from 09/28/2022 through 10/11/2022 after a fall. He was recommended to go to rehab however, was discharged home instead per his request. He was by his PCP 10/26/2022 after sustaining a fall in the shower and appeared very unwell, in pain and weak. He was seen in the ER later on 10/26/2022 and was discharged to [facility] rehab. Patient presents this evening from [facility] with fever, hypoxia, confusion, cough and weakness. Upon arrival, patient febrile at 38.3, blood pressure borderline low at 96/51, normal respiratory rate, saturating 87% on 4 L nasal cannula. Patient confused during my encounter. Shouting at times and other times quite somnolent. ER course: Dexamethasone 6 mg IV, Zosyn 4.5 g IV, normal saline x1 L Principal Diagnosis RHETT covid infection Discharge Exam The patient is awake, alert and oriented 3, obese HEENT--PERRL, EOMI, mucous membranes and oropharynx mildly dry Neck--supple. No JVD. No bruits. Thyroid normal, trachea midline, no adenopathy. Heart--normal S1 and S2. No murmurs, rubs or gallops. Lungs--clear bilaterally, no respiratory distress, no accessory muscle use. Abdomen--normal bowel sounds and soft. Mild epigastric and left sided abdominal pain Extremities-mild leg edema, chronic venous stasis changes Dermatologic--normal skin turgor, normal color, no abnormal lymph nodes, no rash. Neurologic--cranial nerves II through XII grossly intact. Rheumatologic--normal range of motion. Psychiatric--normal affect. Discharge Data Allergies Allergy/AdvReac Type Severity Reaction Status Date / Time lisinopril AdvReac Intermediate Cough Verified 11/04/22 22:45 Consultations 11/05/22 01:48 ED Decision to Admit Stat 11/05/22 16:32 Consult Pulmonology Routine 11/06/22 11:14 Consult Cardiology Routine Ordered Studies 11/05/22 17:42 CT angio chest PE protocol Stat Hospital Course (1) RHETT (acute kidney injury): Now resolved Renal function back to baseline (2) Behavior disturbance: On 11/08 the patient became agitated, became aggressive towards the nursing staff police specialist using a F words, refused to let the police specialist to do blood draw, refused taking meds, threw objects to the nursing, nursing supervisor seaming was informed, security was called , he was also aggressive toward me today and he was aggressive to nurses and 11/06 (3) Hyperkalemia: Resolved (4) Sepsis: Presented to hospital with hypoxia hypertension acute kidney injury and altered mental status possibly secondary to pneumonia resolved, initially started on Zosyn, currently switched to Augmentin for 10 more days (5) Hypoxemia: Patient presented to the hospital with cough fever and hypoxia as well as encephalopathy COVID PCR test is positive however the consulting operating room coordinator is under the impression that it is coincidental given no evidence of viral pneumonia on CAT scan No evidence of PE, no evidence of pulmonary infiltrate, patient was extremely hypoxic upon admission required 15 L oxygen, initially patient was empirically treated with Zosyn Decadron and remdesivir Remdesivir was discontinued by consulting operating room coordinator, Currently patient is on room air, continue Augmentin, Zosyn was discontinued on 11/07 Dexamethasone was discontinued 11/06 Leukocytosis trending CBC tomorrow (6) Leukocytosis: Improving, repeat CBC tomorrow (7) Encephalopathy: Metabolic encephalopathy has improved (8) NSTEMI (non-ST elevated myocardial infarction): Patient has a history of diabetes hypertension hyperlipidemia, diastolic heart coronary artery disease prior CVA Started on heparin drip Consult with workforce development specialist No indication for cardiac cath Ischemic changes on EKG with wall motion abnormality noted on echo Cardiology does not recommend any intervention at this point Stop heparin drip switch to Apixaban on 11/06 Discussed with cardiology no indication for dual antiplatelet agent, continue aspirin (9) Atrial fibrillation: Rat Continue apixaban 5 mg p.o. twice daily As per cardiology note there is no definite documentation of atrial fibrillation Patient had Mobitz type I AV block patient has a history of Mobitz type I AV block/patient has bradycardia which could be secondary to remdesivir remdesivir has been discontinued (10) Chronic diastolic heart failure: Currently compensated, hold Lasix due to acute kidney injury (11) Hypertension: Initially patient was hypotensive losartan has been held, today is systolic blood pressure increased to 160, continue to hold losartan given of acute kidney injury, add Norvasc 10 mg daily on 11/08 (12) Diabetes mellitus type 2 with complications: Poorly controlled diabetes, with A1c of 8.7 on 10/07 Episodes of hypoglycemia, cut down the dose of Lantus to 20 units daily, patient at home takes 30 units daily (13) Gout: Chronic. Stable. Continue allopurinol Plan d/c to snf Total Time Total Time Spent Total Time Spent (In Minutes): 35 Discharge Plan Discharge Items Patient Disposition: Transfer [facility] Reason For Visit: FEVER, SOB Discharge Diagnosis: covid infection Activity: Resume your previous activity Non-emergency contact: Primary Care Provider Call non-emergency contact if: you have any medication questions Follow-up/Referrals: Barbara Cruz DO [Primary Care Provider] - Diet: Carb Consistent or DM2 Addtl Attending Provider Instructions: please make appointment to follow up with your PCP Pending Studies at Discharge: No Stand-Alone Forms: My [facility] [employer] Skilled Items Patient informed of condition?: Yes DNR: No Discharge Level of Care: Skilled Communicable Disease: No Discharge Prognosis: Stable Lines: None Urinary Catheter: Yes Medications and DC Order Prescriptions: Continued (DME) Briefs, Adult-Extra Large misc See Dose Instructions .ROUTE .MEDSUPPLY Qty: 120 12RF Dose Instruction: As directed Rx Instructions: please dispense adult XX large pullups max allowed (DME) Extra Heavy Duty Wheelchair See Rx Instructions .Route .MEDSUPPLY Qty: 1 0RF Rx Instructions: As directed finasteride 5 mg tablet 5 mg PO DAILY Qty: 90 1RF (DME) pen needle, diabetic [BD Sofy 2nd Gen Pen Needle] 32 gauge x " needle See Rx Instructions .Route Qty: 100 2RF Rx Instructions: INJECTING ONCE PER DAY furosemide [Lasix] 20 mg tablet 40 mg PO DAILY Qty: 60 5RF allopurinol 300 mg tablet 300 mg PO DAILY Qty: 90 1RF losartan 100 mg tablet 100 mg PO DAILY Qty: 90 1RF tamsulosin 0.4 mg capsule 0.4 mg PO DAILY Qty: 180 1RF Rx Instructions: PER MED LIST, SOMETIMES TAKES 1 TAB AT HS PRN URINARY ISSUES. (DME) pen needle, diabetic [1st Tier Unifine Pentips] 32 gauge x 5/32" needle See Dose Instructions .ROUTE .MEDSUPPLY Qty: 100 3RF Dose Instruction: As directed Rx Instructions: Injecting once daily. (DME) diaper,brief,adult,disposable Misc See Dose Instructions .ROUTE .MEDSUPPLY Qty: 32 11RF Dose Instruction: As directed Rx Instructions: XXXL Depends (tab style) (DME) Hinged knee brace XL See Rx Instructions .Route .MEDSUPPLY Qty: 1 0RF Rx Instructions: As directed (DME) motor scooter See Rx Instructions .Route .MEDSUPPLY Qty: 1 0RF Rx Instructions: As directed (DME) Diabetic Shoes Misc See Rx Instructions .Route Qty: 1 0RF Rx Instructions: As directed apixaban 5 mg tablet 5 mg PO BID Qty: 60 2RF Rx Instructions: Per D/C instructions from -[facility] 09/17/22 aspirin 81 mg tablet,delayed release (DR/EC) 81 mg PO DAILY Qty: 30 2RF (DME) lancets [BD Ultra Fine Lancets] 33 gauge misc See Rx Instructions .Route Qty: 100 5RF Rx Instructions: As directed. Testing BS BID (DME) Diabetic Shoes Misc See Rx Instructions .Route Qty: 1 0RF Rx Instructions: As directed sennosides [Senokot] 8.6 mg Tablet 8.6 mg PO QDL PRN (Reason: Constipation) acetaminophen [Tylenol] 325 mg Tablet 650 mg PO Q4H PRN (Reason: Pain) insulin glargine 100 unit/mL Solution 15 unit SUBCUT DAILY ammonium lactate 12 % Lotion 1 applic TOPICAL BID Rx Instructions: APPLY LOTION AND COVER WITH TUBI YEAST SUPERVISOR WHEN NEEDED. ondansetron HCl 4 mg Tablet 4 mg PO Q4H PRN (Reason: NAUSEA/VOMITING) tramadol 50 mg Tablet 50 mg PO Q6H PRN (Reason: Pain) magnesium hydroxide [Milk of Magnesia] 400 mg/5 mL Suspension 30 ml PO DAILY PRN (Reason: Constipation) insulin aspart U-100 [Novolog U-100 Insulin aspart] 100 unit/mL Solution 4 unit SUBCUT TIDM bisacodyl 10 mg Suppository 10 mg AR DAILY PRN (Reason: Constipation) lidocaine 5 % Adhesive Patch,Medicated 1 patch TOPICAL DAILY Rx Instructions: APPLY QAM, REMOVE AT HS. docusate sodium 100 mg Capsule 100 mg PO BID nystatin 100,000 unit/gram Powder 1 applic TOPICAL BID Rx Instructions: STARTED 10/28/22 APPLY TO SKIN FOLDS polyethylene glycol 3350 [Miralax] 17 gram/dose Powder 17 g PO QDL PRN (Reason: Constipation) atorvastatin 10 mg tablet 10 mg PO HS Combivent Respimat 20-100 mcg/actuation mist 1 puff INH TID PRN (Reason: BREATHING ISSUES) dulaglutide 3 mg/0.5 mL pen injector 3 mg subcut WK Rx Instructions: TAKES ON WEDNESDAYS; PT UNSURE OF DOSE, UNABLE TO VERIFY. gabapentin 300 mg Capsule 600 mg PO HS 30 Days Qty: 60 0RF Discharge Orders: Discharge Order (Routine); Ordered 11/10/22 Ordered By: Kay Weber Admission Data Admit Date/Time: 11/05/22 02:02 Attending Provider: aKy Weber Admit Provider: Yuko Fitzpatrick Primary Care Provider: Barbara Cruz Other Providers: Yuko Fitzpatrick ; Olaf Davis ; [facility] ; Pelon Hercules ; Caesar Amaro ; Dwayne Lux ; Genaro Eugene ; Wong Butler ; Sean Cunningham Jr ; Antoine Olvera ; Paige Singleton ; Jocelin Vargas ; Reji Garcia ; Stephen Cash ; Shola Zeng ; Aleida Borja ; Paola Plummer ; Harjit Arevalo ; Amari Whipple Henry C. ; Genaro Ortega V. Other Interventions: Discharge Summary Assessment (RN) Last Done: 11/10/22 15:08 Coding Level of Care Code HOSP INP/OBS DISCH >30 MIN Diagnoses RHETT (acute kidney injury) N17.9 Behavior disturbance F91.9 Hyperkalemia E87.5 Sepsis A41.9 Hypoxemia R09.02 Leukocytosis D72.829 Encephalopathy G93.40 NSTEMI (non-ST elevated myocardial infarction) I21.4 Atrial fibrillation I48.91 Atrial fibrillation type: unspecified Chronic diastolic heart failure I50.32 Hypertension I10 Diabetes mellitus type 2 with complications E11.8 Gout M10.9 Time Spent (min) 35
--- NOTE | 2022-12-27 12:29 | Coding Query ---
PRESENT ON ADMISSION QUERY To promote full compliance with coding requirements relating to pateint care, physician participation is requested in all cases of video system repairer uncertainty. Please assist us with the question(s) below: Please place an X within the parenthesis (x). The following diagnosis(es) listed in this patient's medical record require physician assistance to determine if they were present on admission (POA) or not. Please advise for each diagnosis whether it was present on admission, not present on admission, or if it was clinically undetermined. 1.Sepsis (xx ) Present On Admission ( ) Not Present On Admission ( ) Clinically Undetermined ( ) Ruled Out Thank you Anjana Zuniga *Definition of the present on admission (POA)-Present on admission is defined as present at the time the order for inpatient admission occurs. Conditions that develop during an outpatient encounter prior to a written order for inpatient admission (including emergency department, observation, or outpatient surgery) are considered present on admission. MTDD
--- NOTE | 2022-12-29 11:32 | Coding Query ---
To promote full compliance with coding requirements relating to patient care, provider participation is requested in all cases of him coder uncertainty. Please assist us with the question(s) below: Coding Question(s): The diagnosis(es) below was documented in within the chart and medications discontinued. Please indicate if it is still a possible diagnosis or ruled out. Physician's Response(s): PNEUMONIA ( xx ) Diagnosed and POA ( ) Diagnosed and not POA ( ) Ruled out ( ) Other (please specify) Second question: If patient has Pneumonia ( )Related to COVID ( ) Not related to COVID ( xx)Other, please specify unclear if related to covid ( ) N/A, doesn't apply MTDD
--- NOTE | 2022-12-29 11:44 | Coding Query ---
CODING QUERY To promote full compliance with coding requirements relating to patient care, provider participation is requested in all cases of executive kitchen manager uncertainty. Please assist us with the question(s) below: Coding Question(s): Based on your professional, clinical perspective what was the patients principle diagnosis at the time of discharge? pneumonia present on admission Physician's Response(s): Thank you Anjana Zuniga Principal Diagnosis: "that condition established after study, to be chiefly responsible for occasioning the admission of the patient to the hospital for care." Co-Existing Principal Diagnosis: "when two or more diagnoses equally meet the criteria for principal diagnosis as determined by the circumstances of admission, diagnostic work up, and/or therapy provided, and the Alphabetic Index, Tabular List, or another coding guideline does not provide sequencing direction, any one of the diagnoses may be sequenced first." "When the physician has documented what appears to be a current diagnosis in the body of the record, but has not included the diagnosis in the final diagnostic statement, the physician should be asked whether the diagnosis should be added." (Source Coding [facility] 2 QTR90. p3-4) NOBLE
== END 2022-11-10 16:36 | DRG 193 ==
LOC: ED 21:57 → SUATTDRO 11-05 02:02 → EDINP 11-05 02:02 → 2N 11-05 03:40